=== PATIENT | female | born 1935 | race Caucasian/White ===

== ENCOUNTER 2017-01-30 20:31 | Observation (INO) ==
[2017-01-30] MEDS ORDERED: Ondansetron 4 MG/2 ML VIAL IVP ONE (20:40)
[2017-01-30] MEDS ORDERED: *HR* Morphine 2 MG/ML SYRINGE IVP ONE ×2 (20:40→23:08)
--- NOTE | 2017-01-30 20:43 | Emergency Department Note ---
Disposition Clinical Impression: Fracture of wrist Qualifiers: Encounter type: initial encounter Fracture type: closed Laterality: left Qualified Code(s): S62.102A - Fracture of unspecified carpal bone, left wrist, initial encounter for closed fracture Disposition: Admitted As Inpatient Condition: Fair Referrals: Dayana Ellis MD [Primary Care Provider] - Forms: ED Satisfaction Letter Time of Disposition: 01:34 Upper Extremity HPI - General Chief Complaint: ED Extremity Injury, Upper Stated Complaint: Wrist Injury Time Seen by Provider: 01/30/17 20:40 Source: patient, EMS Limitations: no limitations Nursing Notes Reviewed: Yes Vital Signs Reviewed: Yes - History of Present Illness HPI Narrative: Alert and oriented 81-year-old female is brought by EMS for evaluation of a left wrist injury sustained just prior to arrival. The patient states that she was trying to walk underneath her garage door as it was closing, when she tripped and fell, injuring her left wrist. The patient arrives with a splint in place to the left wrist that was applied by EMS. There is a notable deformity. She complains of pain that she rates a 10 out of 10 on a 10 point scale and describes as sharp in nature the pain is made worsened by range of motion from the wrist as well as palpation. She denies any other injuries incurred from this fall. She denies any head injury or LOC. Injury Location: Left: wrist Onset (ago): Just [employer] Other Injuries: none Place: home Pain Severity: severe Pain Scale: 10 Improves with: nothing Worsens with: movement of extremity, Palpation Context: fall Associated symptoms: Reports: denies other symptoms Treatments prior to arrival: splint (per EMS) - Related Data Home Medications Medication Instructions Recorded Confirmed Aspirin 10/31/15 Calcium 10/31/15 Celexa 10/31/15 HYDROcodone/Acet 5/325 mg 10/31/15 Metronidazole 10/31/15 Nitrolingual 10/31/15 Reclast 5 MG/100 ML 10/31/15 Restasis 10/31/15 Senna 10/31/15 Synthroid 10/31/15 Tylenol 10/31/15 Previous Rx's Medication Instructions Recorded Nitrofurantoin (BID) [Macrobid] 100 mg PO BID #10 capsule 10/12/16 Phenazopyridine HCl [Pyridium] 200 mg PO TID #6 tab 10/12/16 PredniSONE [Prednisone] 40 mg PO DAILY #10 tablet 10/30/16 Allergies Allergy/AdvReac Type Severity Reaction Status Date / Time dicyclomine [From Bentyl] Allergy Hives Verified 08/31/15 13:16 Sulfa (Sulfonamide Allergy Hives Verified 08/31/15 13:16 Antibiotics) All systems ED: reviewed and negative except as stated. Constitutional: Denies: fever, chills, weakness, weight change Eyes: Denies: eye pain, eye discharge, vision change ENT ED: Denies: ear pain, throat pain, dental pain, hearing loss, epistaxis, congestion, dysphagia Cardiovascular: Denies: chest pain, palpitations, dyspnea on exertion, edema, syncope Respiratory: Denies: cough, dyspnea, wheezes, hemoptysis, stridor Gastrointestinal: Denies: abdominal pain, nausea, vomiting, diarrhea, constipation, hematemesis, melena, hematochezia Genitourinary: Denies: dysuria, frequency, hematuria, discharge Musculoskeletal: Reports: as per HPI, arthralgia (left wrist injury). Denies: back pain, neck pain, myalgia Integumentary: Denies: rash, abrasion, lesions Neurological: Denies: headache, weakness, numbness, paresthesias, confusion, abnormal gait, vertigo Psychiatric: Denies: anxiety, depression, suicidal thoughts, homicidal thoughts , auditory hallucinations, visual hallucinations Endocrine: Denies: fatigue Hematological/Lymphatic: Denies: easy bleeding, easy bruising Allergic/Immunologic: Denies: facial swelling, urticaria Past Medical History - Past Medical History Attestation: Yes The following information was validated with the patient. Source: patient Medical history: Reports: myocardial infarction, osteoporosis Surgical history: Reports: other (right ear surgery; sinus surgery per Dr. Peng 2013) Psychiatric history: Reports: no psych history - Social History Smoking Status: Never smoker Smokeless Tobacco Status: No Alcohol use: Reports: none Drug use: Reports: none Physical Exam - General Limitations: no limitations General appearance: alert - Head Head exam: atraumatic, normocephalic, normal inspection - Eye Eye exam: Present: normal appearance, PERRL, EOMI. Absent: nystagmus - ENT ENT exam: mucous membranes moist - Neck Neck exam: Present: normal inspection, full ROM, trachea midline. Absent: tenderness - Chest Chest inspection: Present: normal inspection, symmetric chest wall rise - Respiratory Respiratory exam: Present: normal lung sounds bilaterally. Absent: respiratory distress, wheezes, stridor, accessory muscle use, prolonged expiratory phase - Cardiovascular Cardiovascular exam: Present: regular rate, normal rhythm, normal heart sounds - Abdominal Exam Abdominal exam: Present: soft, Non-Tender, normal bowel sounds. Absent: tenderness, distention, guarding, rebound, rigidity - Expanded Upper Extremity Exam Shoulder exam: Present: normal inspection, full ROM Arm exam: Present: normal inspection, full ROM Elbow exam: Present: normal inspection, full ROM Forearm/Wrist exam: Present: tenderness, deformity (Significant medial angulation noted of the left hand from the left wrist joint.). Absent: full ROM , swelling, abrasion, laceration, ecchymosis, erythema Hand exam: Present: normal inspection Neuromotor exam: Abnorm: wrist extension Neurosensory exam: Normal: radial nerve, ulnar nerve, 2-point discrimination Hand tendon exam: Normal: flexor digitorum profundus (location) (All), extensor tendon (location) (All) Vascular exam: Normal: capillary refill, radial pulse, ulnar pulse - Neurological Exam Neurological exam: Present: alert, oriented X3 - Psychiatric Psychiatric exam: Present: normal affect, normal mood - Skin Skin exam: Present: warm, dry, intact, normal color Course Course Narrative: 2250: I was notified by SHARMAINE Sepulveda, of an elevated blood pressure reading of 208/ 81. At the time that he notified me of this, he also notifies me that the patient's daughter has expressed concern that there may be some left-sided facial droop of new onset. Upon reexamination, I do not appreciate any facial droop or facial palsy. Motor strength is equal in all testable extremities. There is no sensory neglect. There is no drift of her lower extremities. No pronator drift with her right upper extremity. Pronator drift of the left upper extremity is untestable due to her left radius fracture. No appreciable speech deficits. Pupils are equal, round, and reactive. After leaving the room , I asked Dr. Delgado to evaluate the patient as well. Dr. Delgado states that he cannot appreciate any focal neuro deficits either. He states that at this time, he does not feel that a stroke alert is warranted, however he does recommend a thorough workup including a routine CT of the head and brain without contrast and possible admission to the hospitalist for further observation. The patient and her daughter are in agreement with this plan. 2300: I spoke with Dr. Davidson, orthopedist food and nutrition services assistant. Dr. Davidson recommends the application of a sugar tong splint after an attempt to reduce the wrist. Dr. Swan states that if the patient is admitted to the hospitalist service, he will see the patient in the hospital tomorrow. 0130: I spoke with Dr. Vilchis who accepts the patient for admission to the hospitalist service. Vital signs are just been repeated. Blood pressure is now 179/68 and heart rate is 80. Vital Signs Temperature 98.3 F 01/30/17 20:36 Pulse Rate 81 01/30/17 20:36 Respiratory Rate 18 01/30/17 20:36 Blood Pressure 131/86 01/30/17 20:36 O2 Sat by Pulse Oximetry 97 01/30/17 20:36 Temperature 98.3 F 01/30/17 20:36 Pulse Rate 97 01/31/17 01:21 Respiratory Rate 16 01/31/17 01:21 Blood Pressure 179/65 01/31/17 01:21 O2 Sat by Pulse Oximetry 97 01/31/17 01:21 Oxygen Delivery Oxygen Delivery Room Air Extremity Injury, Upper - Medical Records Medical records reviewed: Yes I reviewed the patient's medical records. - Lab Data Lab results reviewed: Yes I reviewed the patient's lab results. Lab results narrative: Laboratory Last Values WBC 10.1 K/mcL (4.3-11.1) 01/31/17 00:14 RBC 3.11 M/mcL (3.82-4.97) L 01/31/17 00:14 Hgb 10.5 g/dL (11.5-15.4) L 01/31/17 00:14 Hct 32.6 % (35.3-44.9) L 01/31/17 00:14 MCV 104.8 fL (83.0-100.0) H 01/31/17 00:14 MCH 33.8 pg (28.0-33.3) H 01/31/17 00:14 MCHC 32.2 g/dL (31.6-35.5) 01/31/17 00:14 RDW 13.2 % (11.5-14.5) 01/31/17 00:14 Plt Count 201 K/mcL (140-400) 01/31/17 00:14 MPV 10.1 fL (9.4-12.4) 01/31/17 00:14 Immature Gran % 0.5 % (0-4) 01/31/17 00:14 Seg Neutrophils % 71.9 % 01/31/17 00:14 Lymphocytes % 21.1 % 01/31/17 00:14 Monocytes % 5.3 % 01/31/17 00:14 Eosinophils % 1.1 % 01/31/17 00:14 Basophils % 0.1 % 01/31/17 00:14 Neutrophils # 7.3 K/mcL (1.6-8.9) 01/31/17 00:14 Lymphocytes # 2.1 K/mcL (0.6-4.6) 01/31/17 00:14 Monocytes # 0.5 K/mcL (0.0-1.3) 01/31/17 00:14 Eosinophils # 0.1 K/mcL (0.0-0.6) 01/31/17 00:14 Basophils # 0.0 K/mcL (0.0-0.2) 01/31/17 00:14 PT 11.1 Seconds (9.4-12.1) 01/31/17 00:14 INR 1.0 01/31/17 00:14 Sodium 142 mEq/L (136-145) 01/31/17 00:14 Potassium 3.9 mEq/L (3.5-4.5) 01/31/17 00:14 Chloride 105 mEq/L (98-109) 01/31/17 00:14 Carbon Dioxide 28 mEq/L (19-29) 01/31/17 00:14 BUN 19 mg/dL (7-20) 01/31/17 00:14 Creatinine 0.80 mg/dL (0.57-1.11) 01/31/17 00:14 Est GFR ( Amer) > 60 (> 60) 01/31/17 00:14 Est GFR (Non-Af Amer) > 60 (> 60) 01/31/17 00:14 BUN/Creatinine Ratio 24 (6-26) 01/31/17 00:14 Glucose 106 mg/dL (70-99) H 01/31/17 00:14 Calculated Osmolality 297 (280-300) 01/31/17 00:14 Calcium 9.3 mg/dL (8.6-10.8) 01/31/17 00:14 Total Bilirubin 0.4 mg/dL (0.2-1.2) 01/31/17 00:14 Direct Bilirubin 0.2 mg/dL (0.0-0.5) 01/31/17 00:14 Indirect Bilirubin 0.2 mg/dL (0.0-1.2) 01/31/17 00:14 AST 22 Units/L (5-34) 01/31/17 00:14 ALT 22 Units/L (0-55) 01/31/17 00:14 Alkaline Phosphatase 48 Units/L (38-126) 01/31/17 00:14 Creatine Kinase 105 Units/L (29-168) 01/31/17 00:14 Troponin I 0.01 ng/mL (0-0.03) 01/31/17 00:14 C-Reactive Protein 1 mg/L (Less than 5) 01/31/17 00:14 Serum Total Protein 6.5 g/dL (6.0-8.3) 01/31/17 00:14 Albumin 3.5 g/dL (3.5-5.0) 01/31/17 00:14 Globulin 3.0 g/dL (2.4-3.5) 01/31/17 00:14 Albumin/Globulin Ratio 1.2 (1.1-2.2) 01/31/17 00:14 Urine Color Yellow (Yellow) 01/30/17 23:04 Urine Clarity Clear (Clear) 01/30/17 23:04 Urine pH 7.5 pH Units (5.0-8.0) 01/30/17 23:04 Ur Specific Kinde 1.014 (1.010-1.025) 01/30/17 23:04 Urine Protein Negative mg/dL (Neg-Trace) 01/30/17 23:04 Urine Glucose (UA) Normal mg/dL (Normal) 01/30/17 23:04 Urine Ketones Negative mg/dL (Negative) 01/30/17 23:04 Urine Blood Negative (Negative) 01/30/17 23:04 Urine Nitrite Negative (Negative) 01/30/17 23:04 Urine Bilirubin Negative (Negative) 01/30/17 23:04 Urine Urobilinogen Normal mg/dL (Normal) 01/30/17 23:04 Ur Leukocyte Esterase Negative (Negative) 01/30/17 23:04 Ur Culture Indicated? NO (NO) 01/30/17 23:04 Result diagrams: 01/31/17 00:14 01/31/17 00:14 Lab Results 01/30/17 01/31/17 01/31/17 Range/Units 23:04 00:14 00:14 WBC 10.1 (4.3-11.1) K/mcL RBC 3.11 L (3.82-4.97) M/mcL Hgb 10.5 L (11.5-15.4) g/dL Hct 32.6 L (35.3-44.9) % MCV 104.8 H (83.0-100.0) fL MCH 33.8 H (28.0-33.3) pg MCHC 32.2 (31.6-35.5) g/dL RDW 13.2 (11.5-14.5) % Plt Count 201 (140-400) K/mcL MPV 10.1 (9.4-12.4) fL Immature Gran % 0.5 (0-4) % Seg Neutrophils % 71.9 % Lymphocytes % 21.1 % Monocytes % 5.3 % Eosinophils % 1.1 % Basophils % 0.1 % Neutrophils # 7.3 (1.6-8.9) K/mcL Lymphocytes # 2.1 (0.6-4.6) K/mcL Monocytes # 0.5 (0.0-1.3) K/mcL Eosinophils # 0.1 (0.0-0.6) K/mcL Basophils # 0.0 (0.0-0.2) K/mcL PT 11.1 (9.4-12.1) Seconds INR 1.0 Sodium (136-145) mEq/L Potassium (3.5-4.5) mEq/L Chloride (98-109) mEq/L Carbon Dioxide (19-29) mEq/L BUN (7-20) mg/dL Creatinine (0.57-1.11) mg/dL Est GFR ( Amer) (> 60) Est GFR (Non-Af Amer) (> 60) BUN/Creatinine Ratio (6-26) Glucose (70-99) mg/dL Calculated Osmolality (280-300) Calcium (8.6-10.8) mg/dL Total Bilirubin (0.2-1.2) mg/dL Direct Bilirubin (0.0-0.5) mg/dL Indirect Bilirubin (0.0-1.2) mg/dL AST (5-34) Units/L ALT (0-55) Units/L Alkaline Phosphatase (38-126) Units/L Creatine Kinase (29-168) Units/L Troponin I (0-0.03) ng/mL C-Reactive Protein (Less than 5) mg/L Serum Total Protein (6.0-8.3) g/dL Albumin (3.5-5.0) g/dL Globulin (2.4-3.5) g/dL Albumin/Globulin Ratio (1.1-2.2) Urine Color Yellow (Yellow) Urine Clarity Clear (Clear) Urine pH 7.5 (5.0-8.0) pH Units Ur Specific Kinde 1.014 (1.010-1.025) Urine Protein Negative (Neg-Trace) mg/dL Urine Glucose (UA) Normal (Normal) mg/dL Urine Ketones Negative (Negative) mg/dL Urine Blood Negative (Negative) Urine Nitrite Negative (Negative) Urine Bilirubin Negative (Negative) Urine Urobilinogen Normal (Normal) mg/dL Ur Leukocyte Esterase Negative (Negative) Ur Culture Indicated? NO (NO) 01/31/17 01/31/17 Range/Units 00:14 00:14 WBC (4.3-11.1) K/mcL RBC (3.82-4.97) M/mcL Hgb (11.5-15.4) g/dL Hct (35.3-44.9) % MCV (83.0-100.0) fL MCH (28.0-33.3) pg MCHC (31.6-35.5) g/dL RDW (11.5-14.5) % Plt Count (140-400) K/mcL MPV (9.4-12.4) fL Immature Gran % (0-4) % Seg Neutrophils % % Lymphocytes % % Monocytes % % Eosinophils % % Basophils % % Neutrophils # (1.6-8.9) K/mcL Lymphocytes # (0.6-4.6) K/mcL Monocytes # (0.0-1.3) K/mcL Eosinophils # (0.0-0.6) K/mcL Basophils # (0.0-0.2) K/mcL PT (9.4-12.1) Seconds INR Sodium 142 (136-145) mEq/L Potassium 3.9 (3.5-4.5) mEq/L Chloride 105 (98-109) mEq/L Carbon Dioxide 28 (19-29) mEq/L BUN 19 (7-20) mg/dL Creatinine 0.80 (0.57-1.11) mg/dL Est GFR ( Amer) > 60 (> 60) Est GFR (Non-Af Amer) > 60 (> 60) BUN/Creatinine Ratio 24 (6-26) Glucose 106 H (70-99) mg/dL Calculated Osmolality 297 (280-300) Calcium 9.3 (8.6-10.8) mg/dL Total Bilirubin 0.4 (0.2-1.2) mg/dL Direct Bilirubin 0.2 (0.0-0.5) mg/dL Indirect Bilirubin 0.2 (0.0-1.2) mg/dL AST 22 (5-34) Units/L ALT 22 (0-55) Units/L Alkaline Phosphatase 48 (38-126) Units/L Creatine Kinase 105 (29-168) Units/L Troponin I 0.01 (0-0.03) ng/mL C-Reactive Protein 1 (Less than 5) mg/L Serum Total Protein 6.5 (6.0-8.3) g/dL Albumin 3.5 (3.5-5.0) g/dL Globulin 3.0 (2.4-3.5) g/dL Albumin/Globulin Ratio 1.2 (1.1-2.2) Urine Color (Yellow) Urine Clarity (Clear) Urine pH (5.0-8.0) pH Units Ur Specific Kinde (1.010-1.025) Urine Protein (Neg-Trace) mg/dL Urine Glucose (UA) (Normal) mg/dL Urine Ketones (Negative) mg/dL Urine Blood (Negative) Urine Nitrite (Negative) Urine Bilirubin (Negative) Urine Urobilinogen (Normal) mg/dL Ur Leukocyte Esterase (Negative) Ur Culture Indicated? (NO) - Radiology Data Radiology results reviewed: Yes I reviewed the patient's radiology results. Wrist X-Ray 01/30/17 20:40 IMPRESSION: Fracture of left distal radius and questionable possible subtle nondisplaced fracture of the ulnar styloid as described above. D/ / 01/30/2017 22:16:43 Tristan Pacheco MD / krista Interpreting Provider: Tristan Pacheco MD Chest X-Ray 01/30/17 22:52 IMPRESSION: No acute cardiopulmonary disease. D/ / Wu Randall MD / Wu Randall MD Interpreting Provider: Wu Randall MD Head CT 01/30/17 22:52 IMPRESSION: No acute intracranial abnormality. Mild generalized cerebral atrophy and periventricular white matter ischemic changes, grossly stable. D/ / Wu Randall MD / Wu Randall MD Interpreting Provider: Wu Randall MD - EKG Data EKG attestation: Yes I reviewed and interpreted this EKG. EKG results narrative: EKG reviewed by Dr. Fregoso as well. EKG shows a normal sinus rhythm at a rate of 61 bpm. No ectopy noted. No STEMI.
--- NOTE | 2017-01-30 23:07 | Emergency Department Note ---
START Narrative - START START: I was asked to evaluate the patient secondary to concerns regarding high blood pressure and possible facial drooping. The patient was coming home from [employer] practice today, she was entering her garage and reportedly slipped and fell. She fell onto an outstretched arm quickly left side. A Colles' type fracture was identified in the ED via radiography. The patient was in her usual state of health prior to the event. The patient denies a syncopal event. A simple fall as described. The patient did not have chest pain shortness of breath or abdominal pain. She has not had vomiting or diarrhea. There is no history of headache or head pain or injury. No history of neck pain or back pain or lower extremity pain or right upper extremity pain. Pain and deformity reported left upper extremity near the wrist area. There is been no coldness blueness numbness or weakness left upper extremity. No open lesions or bleeding. The patient is not known to be anticoagulated. During her stay in the ED the patient was given pain medications, the patient's power of senior trial attorney/female relative was in the ED and was concerned because the patient's blood pressure went up. She also thought perhaps the patient had some left facial droop. The patient reports that her mouth just feels dry. There is no history of acute weakness or numbness of the arms or legs, no dysarthria or confusion. No headache. The patient is not known to be diabetic. Physical examination: General elderly female lying supine nontoxic in appearance alert oriented and she answers questions properly no speech abnormality is noted. HEENT normocephalic atraumatic neck is supple or mucosa somewhat dry. The patient is somewhat smacking her lips and has thick sputum, actively complaining that her mouth feels dry. Neck is supple there is no facial palpation of cervical spinous processes. Cardiovascular S1-S2 audible. No JVD or externally cyanosis or edema is noted. Lungs clear to auscultation bilaterally without wheezes rales or crackles. Abdomen soft nontender nondistended rebound rigidity or guarding. No evidence of bruising or trauma. Lower extremities are supple warm and well-perfused show good range of motion without evidence of injury. Right upper extremity is supple and shows a good range of motion without evidence of injury. Left upper extremity reveals swelling about the wrist. Radial pulse palpable, no open lesion. The patient's hand is painless to palpation and is warm and well-perfused. The elbow and shoulder show no evidence of lety defect. All 4 extremities show no evidence of neurovascular or neuromuscular compromise. Exposed skin warm and dry without petechia or purpura. Inspection of the back reveals no trauma no pain to palpation at the rectal lumbar column no pain to percussion or costovertebral angles bilaterally. There is no evidence of lety chest injury. Neurologic muscle strength and sensation are intact in all 4 extremities. Cranial nerves II through XII are grossly intact. The patient has good sensation and strength throughout without evidence of focal defect. The patient is able to smile and displays no facial droop. Extraocular muscles are intact pupils are reactive although somewhat constricted after morphine. Finger to nose testing on the right is unremarkable, left not tested secondary to pain. The patient is able to sit up and displays no truncal instability. ED course: As a precaution,'s further evaluation for general weakness was ordered. CT scan had EKG laboratory testing and urinalysis. The patient's blood pressure was significantly elevated, additional pain control measures were initiated. Medical decision making: The patient appears to be stable, she displays no lety neurologic defects, testing is pending. If the patient does not deteriorate clinically and all of her testing is normative, and her blood pressure normalizes, I think it would be reasonable to splint the patient, discharge her home, and have her follow-up with her primary care physician in 2 days as well as orthopedics in 1-2 days. I do not think the patient necessarily requires reduction of the distal radius fracture in the ED. Orthopedics could be consulted to ensure close follow-up and agreement regarding non-reduction. If there are any significant abnormalities, or the patient's clinical condition deteriorates, or if her pain is uncontrolled and she is unable to ambulate well for her blood pressure remained significantly elevated, I think hospital observation would be reasonable. The patient is currently stable, I do not feel a stroke alert is appropriate based on her non-focal neurological examination. Disposition pending radiographic laboratory and EKG studies as well as monitoring clinical status. Impression: Frail elderly Distal radius fracture Fall Weakness Elevated blood pressure It is shift change, final disposition as per [facility] in consultation with the ED attending provider Dr. Fregoso if deemed necessary.
[2017-01-30 23:22] LABS: Bilirubin,Urine Negative (Negative); Blood,Urine Negative (Negative); Clarity,Urine Clear (Clear); Color,Urine Yellow (Yellow); Glucose,Urine (UA) Normal (Normal); Ketones,Urine Negative (Negative); Leukocyte Esterase,Urine Negative (Negative); Nitrite,Urine Negative (Negative); PH,Urine 7.5 pH Units (5.0-8.0); Protein,Urine Negative (Neg-Trace); Specific Gravity,Urine 1.014 (1.010-1.025); Urobilinogen,Urine Normal (Normal)
[2017-01-31] MEDS ORDERED: *HR* HYDROmorphone 2 MG/ML SYRINGE IVP ONE (00:07)
[2017-01-31] MEDS ORDERED: Ondansetron 4 MG/2 ML VIAL IVP ONE (00:09)
[2017-01-31 00:22] LABS: Basophils % 0.1 %; Eosinophils # 0.1 K/mcL (0.0-0.6); Eosinophils % 1.1 %; Hematocrit 32.6 % (35.3-44.9); Hemoglobin 10.5 g/dL (11.5-15.4); Immature Granulocytes % 0.5 % (0-4); Lymphocytes # 2.1 K/mcL (0.6-4.6); Lymphocytes % 21.1 %; Mean Corpuscular HGB Conc 32.2 g/dL (31.6-35.5); Mean Corpuscular Hemoglobin 33.8 pg (28.0-33.3); Mean Corpuscular Volume 104.8 fL (83.0-100.0); Mean Platelet Volume 10.1 fL (9.4-12.4); Monocytes # 0.5 K/mcL (0.0-1.3); Monocytes % 5.3 %; Neutrophils # 7.3 K/mcL (1.6-8.9); Platelet Count 201 K/mcL (140-400); Red Blood Count 3.11 M/mcL (3.82-4.97); Red Cell Distribution Width 13.2 % (11.5-14.5); Segmented Neutrophils % 71.9 %
[2017-01-31 00:29] LABS: Prothrombin Time 11.1 Seconds (9.4-12.1)
[2017-01-31 00:39] LABS: Alanine Aminotransferase 22 Units/L (0-55); Albumin 3.5 g/dL (3.5-5.0); Albumin/Globulin Ratio 1.2 (1.1-2.2); Alkaline Phosphatase 48 Units/L (38-126); Aspartate Amino Transferase 22 Units/L (5-34); BUN/Creatinine Ratio 24 (6-26); Bilirubin,Direct 0.2 mg/dL (0.0-0.5); Bilirubin,Indirect 0.2 mg/dL (0.0-1.2); Bilirubin,Total 0.4 mg/dL (0.2-1.2); Blood Urea Nitrogen 19 mg/dL (7-20); C-Reactive Protein 1 mg/L (Less than 5); Calcium 9.3 mg/dL (8.6-10.8); Carbon Dioxide 28 mEq/L (19-29); Chloride 105 mEq/L (98-109); Creatine Kinase 105 Units/L (29-168); Glucose 106 mg/dL (70-99); Osmolality,Calculated 297 (280-300); Potassium 3.9 mEq/L (3.5-4.5); Sodium 142 mEq/L (136-145); Total Protein 6.5 g/dL (6.0-8.3); eGFR For African Americans > 60 (> 60); eGFR For Non-African Americans > 60 (> 60)
[2017-01-31] MEDS ORDERED: amLODIPine 5 MG TABLET PO SCH (06:09)
--- NOTE | 2017-01-31 06:10 | Internal Med History&Physical ---
Date of Encounter: 01/31/17 Time of Encounter: 02:00 Assessment and Plan (1) Accelerated hypertension Current visit: Yes Status: Acute Pt denies prior h/o HTN. Will start amlodipine - monitor and uptitrate medications as needed. (2) Left radial fracture Current visit: Yes Status: Acute Has a cast - may need operative reduction. Orthopedic consultation, pain relief. PT/OT consult Qualifiers: Encounter type: initial encounter Radius location: distal Fracture type: closed Fracture morphology: unspecified fracture morphology Qualified Code(s ): S52.502A - Unspecified fracture of the lower end of left radius, initial encounter for closed fracture (3) Hypothyroidism Current visit: Yes Status: Chronic Continue synthroid Qualifiers: Hypothyroidism type: unspecified Qualified Code(s): E03.9 - Hypothyroidism , unspecified (4) Coronary artery disease Current visit: Yes Status: Chronic Continue aspirin and statin. Qualifiers: Coronary Disease-Associated Artery/Lesion type: [place] artery [place] vs. transplanted heart: [place] heart Associated angina: without angina Qualified Code(s): I25.10 - Atherosclerotic heart disease of [place] coronary artery without angina pectoris (5) DVT prophylaxis Current visit: Yes Status: Acute subcutaneous heparin Internal Medicine - H&P: HPI Chief complaint: Elevated blood pressure Admitted From: Emergency Dept Plans for Post Hospital Care: Home History of present illness: Ms. Mack is a 81 year old female With past medical h/o CAD s/p stent placement and osteoporosis. She was apparently trying to walk underneath her garage door as it was closing, apparently lost balance and fell, injuring her left wrist. No LOC. She reports severe, sharp, non radiating pain at the left wrist. She was evaluated in the emergency department and x-rays showed fracture of the left distal radius. She had reduction and cast was placed. Patient was in the emergency department, her blood pressure was noted to be 208/81, which improved and was suspected to be due to pain. Her daughter apparently expressed concern about possible left-sided facial droop of new onset. She was evaluated by the ER physician and there was no objective evidence of facial weakness and CT head was negative for acute lesion. ER provider discussed with orthopedic surgeon Dr. Davidson, who recommended admission to the hospitalist service. She reports pain at the left wrist, which moderate in severity, nonradiating, worse with movement. She denies chest pain, shortness of breath, cough, hypertension, fever, chills, nausea, vomiting, abdominal pain, dysuria, hematuria, bowel problems. Past Med Surg Social Fam HX - Past Medical History Medical history: arthritis, myocardial infarction, osteoporosis Psychiatric history: no psych history - Past Surgical History Surgical History: other - Social History Smoking Status: Never smoker Smokeless Tobacco Status: No Alcohol use: none Drug use: none - Family History Father Adopted: [place]: Suleiman Physicist Nuclear Age: 65 Family Member Ethnicity: Non- Living Status: Age at : 65 Cause of : [place] Hx Family Cardiac Disorders: Yes Hx Family Respiratory Disorders: No Hx Family Cancer: No Hx Family GI Disorders: No Hx Family Genitourinary Disorders: No Hx Family Endocrine Disorder: No Hx Family Musculoskeletal Disorders: No Hx Family Neuromuscular Disorders: No Hx Family Neurologic Disorders: No Hx Family HEENT Disorders: No Hx Family Autoimmune Disorders: No Hx Family Reproductive Disorders: No Hx Family Psychosocial Disorders: No Hx Family Medical Disorders: No Internal Medicine - H&P: Meds Acetaminophen [Tylenol Arthritis] 650 mg PO Q8H PRN 10/31/15 [History] Aspirin 81 mg PO DAILY 10/31/15 [History] Calcium Carbonate [Calcium] 1,200 mg PO DAILY 10/31/15 [History] Citalopram Hydrobromide [Celexa] 10 mg PO DAILY 10/31/15 [History] Cyclosporine [Restasis] 1 drop OP BID 10/31/15 [History] Levothyroxine [Synthroid] 50 mcg PO DAILY 10/31/15 [History] Nitroglycerin [Nitrostat] 0.4 mg SL AD PRN 10/31/15 [History] Sennosides [Senna] 8.6 mg PO TID PRN 10/31/15 [History] Zoledronic Acid (Reclast) [Reclast 5 MG/100 ML] 5 mg IV [id number] 10/31/15 [ History] Atorvastatin [Lipitor] 40 mg PO HS 01/31/17 [History] Omeprazole 20 mg PO BID 01/31/17 [History] Tramadol HCl [Ultram] 50 mg PO TID PRN 01/31/17 [History] Allergies dicyclomine [From Bentyl] Allergy (Verified 08/31/15 13:16) Hives Sulfa (Sulfonamide Antibiotics) Allergy (Verified 08/31/15 13:16) Hives All Systems PM: A 10-system review of systems was performed and is negative for pertinent findings except as documented above in the HPI. - Constitutional Vitals: Temp Pulse Resp BP Pulse Ox 98.5 F 118 16 197/62 95 01/31/17 02:19 01/31/17 02:19 01/31/17 02:19 01/31/17 02:19 01/31/17 02:19 Exam: General: Not in acute distress at the time of my evaluation HEENT: Oral mucosa is dry. No dentures at the time of my evaluation. No conjunctival palor or scleral icterus Neck: No obvious neck swellings Lungs: Clear to auscultation Cardiac: Regular rate and rhythm. No significant murmurs Abdomen: Soft, non tender. Bowel sounds present Genitourinary: No rich catheter Neurological: Alert and oriented. No gross localizing deficits Psych: Not aggressive or agitated Extremities: no significant leg edema. There is cast to the left forearm. Skin: No generalized rash Internal Med - H&P Results - Labs CBC & Chem 7: 01/31/17 00:14 01/31/17 00:14 - EKG Data -: EKG Interpreted by Myself EKG shows normal: sinus rhythm - EKG Data EKG comments: No acute ischemic changes 01/31/17 09:28 - Impressions ITS Impressions Wrist X-Ray 01/30/17 20:40 IMPRESSION: Fracture of left distal radius and questionable possible subtle nondisplaced fracture of the ulnar styloid as described above. D/ / 01/30/2017 22:16:43 Tristan Pacheco MD / krista Interpreting Provider: Tristan Pacheco MD Chest X-Ray 01/30/17 22:52 IMPRESSION: No acute cardiopulmonary disease. D/ / Wu Randall MD / Wu Randall MD Interpreting Provider: Wu Randall MD Head CT 01/30/17 22:52 IMPRESSION: No acute intracranial abnormality. Mild generalized cerebral atrophy and periventricular white matter ischemic changes, grossly stable. D/ / 01/31/2017 06:35:09 Wu Randall MD / nohelia Interpreting Provider: Wu Randall MD
[2017-01-31] MEDS ORDERED: Naloxone 0.4 MG/ML INJ IVP PRN (06:20)
[2017-01-31] MEDS ORDERED: Acetaminophen 325 MG TABLET PO PRN (06:20)
--- NOTE | 2017-01-31 06:45 | Electrocardiograph Report ---
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
[2017-01-31] MEDS: *HR* Morphine 2 MG/ML SYRINGE IVP PRN ×3 (07:01→17:15)
[2017-01-31] MEDS ORDERED: Nitroglycerin 0.4 MG TAB.SUBL SL PRN (09:29)
[2017-01-31] MEDS ORDERED: Sennosides 8.6 MG TABLET PO PRN (09:29)
--- NOTE | 2017-01-31 09:35 | Orthopedic Consult Note ---
Date of Encounter: 01/31/17 Time of Encounter: 09:30 Assessment and Plan (1) Fracture of wrist Current Visit: Yes Status: Acute Xrays show left distal radius and ulnar styloid fractures. The distal radius fracture will require surgical fixation. Plan for left DR ORIF tomorrow morning. The ulnar styloid is nondisplaced and should not require surgical fixation. Leave splint and dressings in place. Elevate extremity. Pain control per hospitalist. NPO after midnight tonight. Qualifiers: Encounter type: initial encounter Fracture type: closed Laterality: left Qualified Code(s): S62.102A - Fracture of unspecified carpal bone, left wrist , initial encounter for closed fracture History of Present Illness Chief complaint: left wrist pain HPI: Ms. Mack is a 81 year old female who presented to the ER last night after tripping and falling on outstretched hand. Was trying to go into garage last night then tripped. She had instant pain in the wrist and states it radiates up the arm to the shoulder. Denies numbness or tingling to LUE. Pain is constant, currently rated 8/10 even with pain medication, worse with motion or palpation. Per report, family was concerned about possible facial droop but ER did not note any signs of stroke upon arrival and CT of head was negative for any acute abnormalities. Patient feeling well now with no noted deficits. Denies hitting head or LOC. Denies chest pain, SOB, fevers. Past Med Surg Social Fam HX - Past Medical History Medical history: arthritis, myocardial infarction, osteoporosis Psychiatric history: no psych history - Past Surgical History Surgical History: other - Social History Smoking Status: Never smoker Smokeless Tobacco Status: No Alcohol use: none Drug use: none - Family History Father Adopted: [place]: Suleiman Resolution Analyst Age: 65 Family Member Ethnicity: Non- Living Status: Age at : 65 Cause of : [place] Hx Family Cardiac Disorders: Yes Hx Family Respiratory Disorders: No Hx Family Cancer: No Hx Family GI Disorders: No Hx Family Genitourinary Disorders: No Hx Family Endocrine Disorder: No Hx Family Musculoskeletal Disorders: No Hx Family Neuromuscular Disorders: No Hx Family Neurologic Disorders: No Hx Family HEENT Disorders: No Hx Family Autoimmune Disorders: No Hx Family Reproductive Disorders: No Hx Family Psychosocial Disorders: No Hx Family Medical Disorders: No Medications and Allergies Acetaminophen [Tylenol Arthritis] 650 mg PO Q8H PRN 10/31/15 [History] Aspirin 81 mg PO DAILY 10/31/15 [History] Calcium Carbonate [Calcium] 1,200 mg PO DAILY 10/31/15 [History] Citalopram Hydrobromide [Celexa] 10 mg PO DAILY 10/31/15 [History] Cyclosporine [Restasis] 1 drop OP BID 10/31/15 [History] Levothyroxine [Synthroid] 50 mcg PO DAILY 10/31/15 [History] Nitroglycerin [Nitrostat] 0.4 mg SL AD PRN 10/31/15 [History] Sennosides [Senna] 8.6 mg PO TID PRN 10/31/15 [History] Zoledronic Acid (Reclast) [Reclast 5 MG/100 ML] 5 mg IV [id number] 10/31/15 [ History] Atorvastatin [Lipitor] 40 mg PO HS 01/31/17 [History] Omeprazole 20 mg PO BID 01/31/17 [History] Tramadol HCl [Ultram] 50 mg PO TID PRN 01/31/17 [History] Allergies dicyclomine [From Bentyl] Allergy (Verified 08/31/15 13:16) Hives Sulfa (Sulfonamide Antibiotics) Allergy (Verified 08/31/15 13:16) Hives All Systems Reviewed: A 10-system review of systems was performed and is negative for pertinent findings except as documented above in the HPI. - Constitutional Constitutional: as per HPI - Cardiovascular Cardiovascular: as per HPI - Respiratory Respiratory: as per HPI - Musculoskeletal Musculoskeletal: as per HPI Physical Exam - Constitutional Vitals: Temp Pulse Resp BP Pulse Ox 97.7 F 69 18 133/70 96 01/31/17 07:09 01/31/17 07:09 01/31/17 07:09 01/31/17 07:09 01/31/17 07:09 - Wrist & Hand left Location of pain: dorsal wrist, volar wrist (Patient has sugar tong splint intact and this was not removed for exam. Good motion of fingers, brisk cap refill. NV intact. Tenderness to palpation of wrist even over the splint. No tenderness to palpation of the elbow or shoulder. ) Results - Labs Result Diagrams: 01/31/17 00:14 01/31/17 00:14 Labs: Abnormal lab results RBC 3.11 M/mcL (3.82-4.97) L 01/31/17 00:14 Hgb 10.5 g/dL (11.5-15.4) L 01/31/17 00:14 Hct 32.6 % (35.3-44.9) L 01/31/17 00:14 MCV 104.8 fL (83.0-100.0) H 01/31/17 00:14 MCH 33.8 pg (28.0-33.3) H 01/31/17 00:14 Glucose 106 mg/dL (70-99) H 01/31/17 00:14 All other labs normal. - Diagnostic results Wrist/Hand x-ray: report reviewed, image reviewed Consult Discharge Plan - Plan Referrals: Dayana Ellis MD [Primary Care Provider] - - Attending Attestation Case and plan of care discussed with attending physician who was available for all aspects of care.
--- NOTE | 2017-01-31 09:57 | Internal Med Progress Note ---
Date of Encounter: 01/31/17 Time of Encounter: 09:55 - Assessment and plan (1) Colles' fracture of left radius Current Visit: Yes Status: Acute Assessment and plan: The patient presented with a left Colles' fracture secondary to traumatic fall at home while trying to enter her garage and beat the garage door. - X-ray of the left wrist reviewed. - Neurovascularly intact - Moderate risk patient for a low risk procedure. Plan: - We will image left proximal radius - Orthopedic surgery plans to operate tomorrow morning. - NPO after midnight. Qualifiers: Qualified Code(s): S52.532A - Colles' fracture of left radius, initial encounter for closed fracture (2) Accelerated hypertension Current Visit: Yes Status: Acute Assessment and plan: Patient is not on blood pressure medications at home. Elevated blood pressures of SBP around 199 recorded now normotensive. - Patient has severe diffuse vascular stenosis and her BP may be a result of poor vascular response. Hx of hypotension with BP medications and no home BP medications. Plan: - Continue to monitor blood pressure - Hydralazine 5 mg IV every 6 hours when necessary for SBP greater than 160 - Discontinue Amlodipine. (3) Hypothyroidism Current Visit: Yes Status: Chronic Assessment and plan: Continue home medications. Qualifiers: Hypothyroidism type: unspecified Qualified Code(s): E03.9 - Hypothyroidism , unspecified (4) Coronary artery disease Current Visit: Yes Status: Chronic Assessment and plan: Significant coronary artery disease history, history of mesenteric ischemia, carotid stenosis. - Carotid duplex demonstrates right prox. ICA has 40-59% stenosis, Left mid ICA has 80-99% stenosis. Medical management was preferred per notes. -Continue home medications. Qualifiers: Coronary Disease-Associated Artery/Lesion type: [place] artery [place] vs. transplanted heart: [place] heart Associated angina: without angina Qualified Code(s): I25.10 - Atherosclerotic heart disease of [place] coronary artery without angina pectoris (5) DVT prophylaxis Current Visit: Yes Status: Acute Assessment and plan: SC Heparin Q12hrs - Subjective Interval history: Ms. Mack has been seen and evaluated this morning at patient bedside. She continues to have pain exacerbated with movement in her left forearm that she broke yesterday. It is bandaged and she keeps it close to her body. She has an appetite and denies vomiting. She denies pain anywhere else today. She understands that her forearm will likely need surgical intervention. She has no further questions. - Constitutional Vitals: Temp Pulse Resp BP Pulse Ox 97.7 F 69 18 133/70 96 01/31/17 07:09 01/31/17 07:09 01/31/17 07:09 01/31/17 07:09 01/31/17 07:09 General appearance: Present: cooperative, A&O X 3, no acute distress - Head Head exam: Present: atraumatic, normocephalic - Eye Eye exam: Present: PERRL, conjuntiva pink, sclera anicteric Pupils: Present: PERRL - ENT ENT exam: Present: mucous membranes moist - Neck Neck exam general surgery: Present: supple, trachea midline. Absent: lymphadenopathy - Respiratory Respiratory exam: Present: CTAB. Absent: accessory muscle use, rales, rhonchi, wheezes - Cardiovascular Cardiovascular exam: Present: RRR, systolic murmur Additional comments: Grade 2-6 systolic ejection murmur. Bilateral carotid bruits noted. - GI/Abdominal GI/Abdominal exam: Present: normal bowel sounds, soft, no peritoneal signs. Absent: distended, tenderness - Extremities Exam Extremities exam: Present: warm. Absent: calf tenderness, cyanotic, pedal edema Additional comments: left arm bandaged past elbow. fingers of left hand a swollen but have appropriate capillary refill and sensation and motor function are intact. All other extremities are moving spontaneously. - Neurological Exam Neurological exam: Present: alert, oriented X3, no focal deficits. Absent: pronater drift, facial droop, speech deficit Internal Medicine: Result - Labs CBC & Chem 7: 01/31/17 00:14 01/31/17 00:14 - ABG Interpretation ABG results: PT/INR, D-dimer PT 11.1 Seconds (9.4-12.1) 01/31/17 00:14 Consult Discharge Plan - Plan Referrals: Dayana Ellis MD [Primary Care Provider] -
[2017-01-31] MEDS: (Cyclosporine [Restasis] 1 DROP) OP SCH ×2 (12:03→20:38)
[2017-01-31] MEDS: Aspirin 81 MG TAB.CHEW PO SCH (12:07)
[2017-01-31] MEDS: *HR* Heparin 5,000 UNIT/ML VIAL SQ SCH ×2 (12:07→17:15)
[2017-01-31] MEDS: *HR* OxyCODONE Immed Rel 5 MG TABLET PO PRN ×2 (15:26→23:46)
--- NOTE | 2017-01-31 22:52 | Anesthesia Evaluation PreOp ---
Date of Encounter: 02/01/17 Time of Encounter: 00:00 - Past History Planned Operation: L distal radius ORIF Cardiac History: [place] (STEMI 2011), HTN (Very elevated BP on admission (with systolic over 200) and initial concern for CVA and facial droop with negative CT brain), Hyperlipidemia, Cardiac Stent (stent to RCA 2011), Other (CAD) Pulmonary History: Denies Any Significant HX ROPE TIER History: CVA (?? concern for facial droop on admission to ED after fall; negative CT brain but no MRI performed and symptoms abated), Other (Concern for possible facial droop upon admission to ED; no evidence per ED providers and negative CT brain; however, patient does have critical L mid ICA stenosis and mod R prox ICA stenosis) Other Medical History: Thyroid (hypothyroidism), GERD, Other (osteoporosis) Alcohol Use: none Drug use: none Medications and Allergies Acetaminophen [Tylenol Arthritis] 650 mg PO Q8H PRN 10/31/15 [History] Aspirin 81 mg PO DAILY 10/31/15 [History] Calcium Carbonate [Calcium] 1,200 mg PO DAILY 10/31/15 [History] Citalopram Hydrobromide [Celexa] 10 mg PO DAILY 10/31/15 [History] Cyclosporine [Restasis] 1 drop OP BID 10/31/15 [History] Levothyroxine [Synthroid] 50 mcg PO DAILY 10/31/15 [History] Nitroglycerin [Nitrostat] 0.4 mg SL AD PRN 10/31/15 [History] Sennosides [Senna] 8.6 mg PO TID PRN 10/31/15 [History] Zoledronic Acid (Reclast) [Reclast 5 MG/100 ML] 5 mg IV [id number] 10/31/15 [ History] Atorvastatin [Lipitor] 40 mg PO HS 01/31/17 [History] Omeprazole 20 mg PO BID 01/31/17 [History] Tramadol HCl [Ultram] 50 mg PO TID PRN 01/31/17 [History] Oxycodone HCl/Acetaminophen [Percocet 5-325 mg Tablet] 1 each PO Q4-6H PRN #40 tablet 02/01/17 [Rx] Allergies dicyclomine [From Bentyl] Allergy (Verified 08/31/15 13:16) Hives Sulfa (Sulfonamide Antibiotics) Allergy (Verified 08/31/15 13:16) Hives - Meds/Allergy Pre-op Review Medications Reviewed: Yes Allergies Reviewed: Yes Beta Blockers on Current Med List: No Anesthesia Results - Labs 01/31/17 00:14 01/31/17 00:14 - Imaging EKG: report reviewed, image reviewed (SR) Chest x-ray: report reviewed, image reviewed (no acute cardiopulmonary disease) Additional studies: carotid duplex: R prox ICA mod stenosis L mid ICA critical stenosis Anesthesia Exam Last Vital Signs Temp 98.4 F 01/31/17 20:41 Pulse 89 01/31/17 20:41 Resp 16 01/31/17 20:41 BP 128/68 01/31/17 20:41 Pulse Ox 92 01/31/17 20:41 Weight: 57 kg Anesthesia Assess/Plan ASA Score: 3 Anesthetic Plan: General, Regional, MAC Monitoring Plan: Standard Monitors Recovery Plan: PACU
[2017-02-01] MEDS: *HR* Heparin 5,000 UNIT/ML VIAL SQ SCH ×2 (03:57→17:29)
[2017-02-01] MEDS: (Cyclosporine [Restasis] 1 DROP) OP SCH (07:52)
[2017-02-01] MEDS: Aspirin 81 MG TAB.CHEW PO SCH (07:52)
[2017-02-01] MEDS ORDERED: *HR* FentaNYL (PF) 100 MCG/2 ML VIAL ONE ×2 (09:53→10:29)
[2017-02-01] MEDS ORDERED: *HR* Propofol 200 MG/20 ML VIAL IVP ONE ×2 (09:53→10:29)
[2017-02-01] MEDS ORDERED: Lidocaine -MPF 2% 2 ML VIAL ONE (10:29)
[2017-02-01] MEDS ORDERED: *HR* Midazolam HCl 2 MG/2 ML VIAL ONE (10:29)
[2017-02-01] MEDS ORDERED: Famotidine 20 MG/2 ML VIAL ONE (10:46)
[2017-02-01] MEDS ORDERED: Tetracaine/PF 20 MG/2 ML AMPUL SPINA ONE (10:46)
[2017-02-01] MEDS ORDERED: ROPIVACAINE HCL/PF 0.5% 30 ML VIAL ONE (10:46)
[2017-02-01] MEDS ORDERED: Lidocaine -MPF 4% 5 ML AMPUL ONE (10:46)
[2017-02-01] MEDS ORDERED: Bupivacaine/Clonidine Syringe 1 EACH SYRINGE ONE (10:47)
[2017-02-01] MEDS ORDERED: Propofol 500 MG/50 ML INFUS..BTL ONE (11:03)
--- NOTE | 2017-02-01 11:08 | Discharge Summary ---
Outpatient Proc Discharge Plan - Plan Additional Instructions: Do not remove splint Elevate hand. Move fingers and thumb, making sure to make a full fist Use ice for 1 to 2 hour 3 times a day for the next 2 days. No lifting with the operative hand No sports or gym activities follow-up in 1 week with Geena Lawrence PA-C Prescriptions: Oxycodone HCl/Acetaminophen [Percocet 5-325 mg Tablet] 1 each PO Q4-6H PRN #40 tablet PRN Reason: Pain Home Medications: Acetaminophen [Tylenol Arthritis] 650 mg PO Q8H PRN 10/31/15 [History] Aspirin 81 mg PO DAILY 10/31/15 [History] Calcium Carbonate [Calcium] 1,200 mg PO DAILY 10/31/15 [History] Citalopram Hydrobromide [Celexa] 10 mg PO DAILY 10/31/15 [History] Cyclosporine [Restasis] 1 drop OP BID 10/31/15 [History] Levothyroxine [Synthroid] 50 mcg PO DAILY 10/31/15 [History] Nitroglycerin [Nitrostat] 0.4 mg SL AD PRN 10/31/15 [History] Sennosides [Senna] 8.6 mg PO TID PRN 10/31/15 [History] Zoledronic Acid (Reclast) [Reclast 5 MG/100 ML] 5 mg IV [id number] 10/31/15 [ History] Atorvastatin [Lipitor] 40 mg PO HS 01/31/17 [History] Omeprazole 20 mg PO BID 01/31/17 [History] Tramadol HCl [Ultram] 50 mg PO TID PRN 01/31/17 [History] Oxycodone HCl/Acetaminophen [Percocet 5-325 mg Tablet] 1 each PO Q4-6H PRN #40 tablet 02/01/17 [Rx]
[2017-02-01] MEDS ORDERED: Ondansetron 4 MG/2 ML VIAL ONE (11:26)
[2017-02-01 11:32] LABS: Thyroid Stimulating Hormone 11.127 mcIU/mL (0.350-4.840)
[2017-02-01] MEDS ORDERED: Naloxone 0.4 MG/ML INJ IVP PRN ×2 (11:33→13:15)
[2017-02-01] MEDS ORDERED: *HR* HYDROmorphone (PF) 1 MG/ML SYRINGE IVP PRN (11:33)
[2017-02-01] MEDS ORDERED: *HR* Meperidine 25 MG/ML SYRINGE IVP PRN (11:33)
[2017-02-01] MEDS ORDERED: *HR* Labetalol 100 MG/20 ML MDV IVP PRN (11:33)
[2017-02-01] MEDS ORDERED: Ondansetron 4 MG/2 ML VIAL IVP ONE (11:33)
[2017-02-01] MEDS ORDERED: Albuterol 2.5 MG/3 ML NEBULIZER IH ONE (11:33)
--- NOTE | 2017-02-01 11:38 | Anesthesia Procedures ---
Date of Encounter: 02/01/17 Time of Encounter: 11:35 Procedures: Anesthesia - Nerve Block Procedure Date: 02/01/17 Time: 11:35 Surgical Procedure: left distal radius orif Checklist: Correct Patient Identifier, Correct procedure, History checked Correct side: Left Blood Thinner: No Monitor Applied: EKG, BP, Pulse Oximetry Supplemental Oxygen via Nasal Cannula (L/min): 2 Sedation: Versed (mg): 1 Sedation: Fentanyl (mcg): 50 Indication: Primary Anesthesia (request per dr. england) Pre-op Neuro Deficits: No Block Type: Supraclavicular (icb) Catheter placed: No Sterile Technique: Yes Ultrasound used: Yes Anatomy identified: Yes Visual spread of Local: Yes Neuro Stimulation: No Blood on Needle Aspiration: No Smooth Injection of Local: Yes Pain with Injection of Local: No Prep: Chlorhexadine Needle: 22 x 50 mm Stimuplex Local: 0.25% Bupivicaine w/Clonidine 20 mcg/cc (for icb), Ropivacaine (0.5%) Volume (cc): 30 Number of Attempts: 1 Complications: None/effective block Vitals: Vital Signs/O2 Sat/Glucose, Most Current Pulse Resp BP Pulse Ox 02/01/17 10:45 77 16 175/94 99 Comments: pt tolerated procedure well. no complications. vss
[2017-02-01] MEDS ORDERED: Nitroglycerin 0.4 MG TAB.SUBL SL PRN (13:15)
--- NOTE | 2017-02-01 13:16 | Anesthesia Evaluation Post Op ---
Date of Encounter: 02/01/17 Time of Encounter: 13:15 - Vital Signs Vital Signs: Vital Signs/O2 Sat/Glucose, Most Current Pulse Resp BP Pulse Ox 02/01/17 10:45 77 16 175/94 99 - Lungs Lungs: Clear Ascult./Percussion - Airway Airway: Non-obstructed - Cardiovascular Regular Rate, Baseline Rhythm - Mental Status Mental Status: Alert & Oriented, Answers Appropriately - Pain Pain Scale: 3 Pain Scale used: Numeric (1 - 10) - Nausea Vomiting Nausea Vomiting: Not Present - Hydration Hydration: NPO, Has not voided - Discharge PostOp Status: Transfer Patient to floor
--- NOTE | 2017-02-01 13:34 | Operative Note ---
Date of procedure: 02/01/17 Pre-op diagnosis: left distal radius intra-articular fracture with ulnar styloid fractu Post-op diagnosis: other (left wrist displdisplaced distal radius intrntra- articular fracture 3+ distal fragments, inimally displaced ulnar styloid b) Procedure: left wrist open reduction internal fixation of distal radius Implants: [employer] Geminus Anesthesia: MAC, regional Surgeon: Javier Davidson Estimated blood loss (cc): 3 Tourniquet Time (Minutes): 55 Specimen: 0 Condition: stable Disposition: PACU Procedure in Detail: The patient received IV antibiotics in the holding area and also underwent an axillary block by the anesthesia department. The patient was brought into the operating room and placed on the OR table in supine position with the affected upper extremity in a hand table. The patient received MAC. A tourniquet was placed on the arm close axilla and the upper extremity was then prepped and draped in usual sterile fashion. A timeout was performed. The extremity was then elevated, exsanguinated with an Ramiro wrap and the tourniquet was raised to a pressure of 250 mmHg. A 6 cm longitudinal incision was made over the volar radial aspect of the wrist , directly over the FCR tendon ending at the distal wrist flexion crease. The FCR sheath was split down the midline, the tendon was retracted over medially and the base of the sheath was also split the midline. The deep fascia and the FPL muscle/tendon was also retraction medially exposing the pronator quadratus. This was then elevated off in an L-shaped manner subperiosteally, exposing the fracture site. The distal fracture fragments were mobilized as a unit, and reduced with the use of a freer elevator, and provisionally pinned in place using a 0.062 K wire driven down from the tip of the radial styloid into the proximal shaft. No significant intra-articular comminution by the radial styloid x-ray showed a articular surface remained nondisplaced. Is a healing fracture but the ligament facet but this also remained nondisplaced. A lamina supervisor front was also used to restore the alignment of the radial shaft. Next a 4 hole left sided standard plate was applied to the volar surface and secured with a bone screw through the slotted hole. Once we had appropriate position plate, it was further secured with a locking screw in hole #4 in the metaphyseal bone. The distal fragment was held against the plate restoring volar tilt, and temporary fixation wires were placed in the radial and ulnar columns securing the distal fragment. Next a compression screw was then placed distally and the ulnar column further securing the distal fragment. The remaining holes were then filled with locking screws in standard technique, using variable angle as needed. The K wires were removed and these holes were also filled with locking screws. The remaining holes in the shaft of the plate were then filled with locking screws in standard technique. The K wire was removed. Final fluoroscopy shots were taken and saved; checking in AP, lateral, facet views, and a 45 degree supination view making sure the screws were not within the joint. The ulnar styloid base fracture remained minimally displaced. The patient crest was checked and there was no instability. Once satisfactory, the wound was irrigated with normal saline and the pronator quadratus was tacked back down in place with 3-0 Vicryl [id number] sutures. The tourniquet was deflated, once again irrigating the wound and obtaining hemostasis with the bipolar electrocautery. The skin incision was closed with 5-0 nylon mattress and simple sutures. Sterile dressings were applied and the patient placed into a sugar tong splint. Patient was taken to the recovery room in stable condition. The patient will be seen at postoperative week #1 for dressing changes and placed into a long arm cast.
[2017-02-01] MEDS: *HR* Morphine 2 MG/ML SYRINGE IVP PRN ×3 (13:43→23:15)
[2017-02-01] MEDS: Sennosides 8.6 MG TABLET PO PRN (15:02)
--- NOTE | 2017-02-01 15:05 | Internal Med Progress Note ---
<Suleiman Maddox - Last Filed: 02/01/17 15:21> Date of Encounter: 02/01/17 Time of Encounter: 15:03 - Assessment and plan (1) Colles' fracture of left radius Current Visit: Yes Status: Acute Assessment and plan: The patient presented with a left Colles' fracture secondary to traumatic fall at home while trying to enter her garage and beat the garage door. - X-ray of the left wrist reviewed. - Neurovascularly intact - Patient underwent orthopedic intervention today. Stable with appropriate pain control Plan: - Continue pain control - Continue physical therapy - bottom worker involved for placement needs. Qualifiers: Qualified Code(s): S52.532A - Colles' fracture of left radius, initial encounter for closed fracture (2) Accelerated hypertension Current Visit: Yes Status: Acute Assessment and plan: Patient is not on blood pressure medications at home. Elevated blood pressures of SBP around 199 recorded now normotensive. - Patient has severe diffuse vascular stenosis and her BP may be a result of poor vascular response. Hx of hypotension with BP medications and no home BP medications. Plan: - Continue to monitor blood pressure - Hydralazine 5 mg IV every 6 hours when necessary for SBP greater than 160 (3) Hypothyroidism Current Visit: Yes Status: Chronic Assessment and plan: Continue home medications. Qualifiers: Hypothyroidism type: unspecified Qualified Code(s): E03.9 - Hypothyroidism , unspecified (4) Coronary artery disease Current Visit: Yes Status: Chronic Assessment and plan: Significant coronary artery disease history, history of mesenteric ischemia, carotid stenosis. - Carotid duplex demonstrates right prox. ICA has 40-59% stenosis, Left mid ICA has 80-99% stenosis. Medical management was preferred per notes. -Continue home medications. Qualifiers: Coronary Disease-Associated Artery/Lesion type: [place] artery [place] vs. transplanted heart: [place] heart Associated angina: without angina Qualified Code(s): I25.10 - Atherosclerotic heart disease of [place] coronary artery without angina pectoris (5) Fall at home Current Visit: Yes Status: Acute Assessment and plan: Patient fell at home resulting in left wrist fracture. She fell recently resulting in right rotator cuff tear. Patient is a high fall risk. Plans for rehabilitation placement post inpatient stay. - Physical therapy to evaluate - bottom worker involvement for placement. Qualifiers: Qualified Code(s): W19.XXXA - Unspecified fall, initial encounter; Y92.099 - Unspecified place in other non-institutional residence as the place of occurrence of the external cause (6) DVT prophylaxis Current Visit: Yes Status: Acute Assessment and plan: [place] Heparin Q12hrs - Subjective Interval history: Ms. Mack has been seen and evaluated this morning at patient bedside. She is awake alert interactive and awaiting orthopedic intervention of her left wrist today. She denies significant pain so that has been well controlled. She has been nothing by mouth overnight but had some difficulty sleeping with her chronic back pain and right shoulder pain. Right shoulder pain is no worse than before her previous fall resulting in rotator cuff tear. She denies any other concerns. Her daughter is at bedside and is concerned about her post hospital care as she does not have full-time care and she usually uses a walker now that she has injuries to both upper extremities her mobility will be limited. - Constitutional Vitals: Temp Pulse Resp BP Pulse Ox 97.4 F L 73 16 187/71 100 02/01/17 13:20 02/01/17 13:20 02/01/17 13:20 02/01/17 13:20 02/01/17 13:20 General appearance: Present: cooperative, A&O X 3, no acute distress - Head Head exam: Present: atraumatic, normocephalic - Eye Eye exam: Present: PERRL, conjuntiva pink, sclera anicteric Pupils: Present: PERRL - ENT ENT exam: Present: mucous membranes moist - Neck Neck exam general surgery: Present: supple, trachea midline. Absent: lymphadenopathy - Respiratory Respiratory exam: Present: CTAB. Absent: accessory muscle use, rales, rhonchi, wheezes - Cardiovascular Cardiovascular exam: Present: RRR, +S1, +S2. Absent: diastolic murmur, gallop, rubs, systolic murmur - GI/Abdominal GI/Abdominal exam: Present: normal bowel sounds, soft, no peritoneal signs. Absent: distended, tenderness - Extremities Exam Extremities exam: Present: warm, radial pulses palpable and symetrical Additional comments: Left upper extremity is in a sling, left forearm is wrapped with Ramiro bandaging. Fingers demonstrates appropriate neurovascular responses. There is some swelling to her distal fingers. Right upper extremity is without abnormalities. She does have tenderness to palpation of the posterior lateral shoulder. - Neurological Exam Neurological exam: Present: alert, oriented X3, no focal deficits. Absent: pronater drift, facial droop, speech deficit - Psychiatric Psychiatric exam: Present: normal affect, normal mood Internal Medicine: Result - Labs CBC & Chem 7: 01/31/17 00:14 01/31/17 00:14 - ABG Interpretation ABG results: PT/INR, D-dimer PT 11.1 Seconds (9.4-12.1) 01/31/17 00:14 - Impressions Impressions Elbow X-Ray 01/31/17 17:27 IMPRESSION: No evidence of a fracture of the left elbow. However, the study is limited secondary to the presence of a soft tissue cast and osteopenia. If there remains a clinical concern for a fracture after removal of the cast, repeat radiographs can be obtained. D/ / Best Sage MD / Best Sage MD Interpreting Provider: Best Sage MD Fluoroscopy 02/01/17 12:32 IMPRESSION: Intraprocedural fluoroscopic spot images as above. See separate procedure report for more information. D/ / Yury Guo MD / Yury Guo MD Interpreting Provider: Yury Guo MD Consult Discharge Plan - Plan Additional Instructions: Do not remove splint Elevate hand. Move fingers and thumb, making sure to make a full fist Use ice for 1 to 2 hour 3 times a day for the next 2 days. No lifting with the operative hand No sports or gym activities follow-up in 1 week with Geena Lawrence PA-C Referrals: Dayana Ellis MD [Primary Care Provider] - Prescriptions: Oxycodone HCl/Acetaminophen [Percocet 5-325 mg Tablet] 1 each PO Q4-6H PRN #40 tablet PRN Reason: Pain <Ramos Mercado - Last Filed: 02/02/17 07:57> Date of Encounter: 02/02/17 - Constitutional Vitals: Temp Pulse Resp BP Pulse Ox 98.9 F 83 16 179/69 93 02/02/17 07:12 02/02/17 07:12 02/02/17 07:12 02/02/17 07:12 02/02/17 07:12 Internal Medicine: Result - Labs CBC & Chem 7: 01/31/17 00:14 01/31/17 00:14 - ABG Interpretation ABG results: PT/INR, D-dimer PT 11.1 Seconds (9.4-12.1) 01/31/17 00:14 - Impressions Impressions Fluoroscopy 02/01/17 12:32 IMPRESSION: Intraprocedural fluoroscopic spot images as above. See separate procedure report for more information. D/ / Yury Guo MD / Yury Guo MD Interpreting Provider: Yury Guo MD - Attending Attestation I did see the patient with the Resident and agree with the assesement.. she is not able to be at home now that she cannot get around; she will need placement. Will also check with RAd. to see if R shoulder x-ray warranted due to increasing pain since fall or is CXR enough of a view of that area.
[2017-02-01] MEDS: *HR* OxyCODONE Immed Rel 5 MG TABLET PO PRN ×2 (15:28→21:26)
[2017-02-01] MEDS: Patient Taking Own Medication 1 EACH OP SCH (20:37)
[2017-02-01] MEDS: Acetaminophen 325 MG TABLET PO PRN (20:37)
[2017-02-02] MEDS: *HR* Heparin 5,000 UNIT/ML VIAL SQ SCH ×2 (05:03→16:53)
[2017-02-02] MEDS: *HR* Morphine 2 MG/ML SYRINGE IVP PRN ×4 (05:03→22:53)
[2017-02-02] MEDS: *HR* OxyCODONE Immed Rel 5 MG TABLET PO PRN ×3 (06:50→19:35)
--- NOTE | 2017-02-02 07:32 | Internal Med Progress Note ---
<Suleiman Maddox - Last Filed: 02/02/17 10:01> Date of Encounter: 02/02/17 Time of Encounter: 07:32 - Assessment and plan (1) Colles' fracture of left radius Current Visit: Yes Status: Acute Assessment and plan: The patient presented with a left Colles' fracture secondary to traumatic fall at home while trying to enter her garage and beat the garage door. - X-ray of the left wrist reviewed. - Neurovascularly intact - Patient underwent orthopedic intervention yesterday. Stable with appropriate pain control - Orthopedics okayed for discharge. Plan: - Continue pain control - Continue physical therapy - heater worker involved for placement needs. Qualifiers: Qualified Code(s): S52.532A - Colles' fracture of left radius, initial encounter for closed fracture (2) Accelerated hypertension Current Visit: Yes Status: Acute Assessment and plan: Patient is not on blood pressure medications at home. Elevated blood pressures of SBP around 199 recorded now normotensive. - Patient has severe diffuse vascular stenosis and her BP may be a result of poor vascular response. Hx of hypotension with BP medications and no home BP medications. Plan: - Continue to monitor blood pressure - Hydralazine 5 mg IV every 6 hours when necessary for SBP greater than 160 (3) Hypothyroidism Current Visit: Yes Status: Chronic Assessment and plan: Continue home medications. Qualifiers: Hypothyroidism type: unspecified Qualified Code(s): E03.9 - Hypothyroidism , unspecified (4) Coronary artery disease Current Visit: Yes Status: Chronic Assessment and plan: Significant coronary artery disease history, history of mesenteric ischemia, carotid stenosis. - Carotid duplex demonstrates right prox. ICA has 40-59% stenosis, Left mid ICA has 80-99% stenosis. Medical management was preferred per notes. -Continue home medications. Qualifiers: Coronary Disease-Associated Artery/Lesion type: [place] artery [place] vs. transplanted heart: [place] heart Associated angina: without angina Qualified Code(s): I25.10 - Atherosclerotic heart disease of [place] coronary artery without angina pectoris (5) Fall at home Current Visit: Yes Status: Acute Assessment and plan: Patient fell at home resulting in left wrist fracture. She fell recently resulting in right rotator cuff tear. Patient is a high fall risk. Plans for rehabilitation placement post inpatient stay. - Physical therapy to evaluate - heater worker involvement for placement. Qualifiers: Qualified Code(s): W19.XXXA - Unspecified fall, initial encounter; Y92.099 - Unspecified place in other non-institutional residence as the place of occurrence of the external cause (6) DVT prophylaxis Current Visit: Yes Status: Acute Assessment and plan: [place] Heparin Q12hrs - Subjective Interval history: Ms. Mack has been seen and evaluated this morning at patient bedside. She is awake alert interactive and her only complaint is left wrist pain. She says that the pain has been continuous since last night with not much improvement with pain medications that she has received. She also says that she has been constipated and would like something to help with her bowels. she is passing gas. She denies any further concerns. - Constitutional Vitals: Temp Pulse Resp BP Pulse Ox 98.9 F 83 16 179/69 93 02/02/17 07:12 02/02/17 07:12 02/02/17 07:12 02/02/17 07:12 02/02/17 07:12 General appearance: Present: cooperative, A&O X 3, no acute distress - Head Head exam: Present: atraumatic, normocephalic - Eye Eye exam: Present: PERRL, conjuntiva pink, sclera anicteric Pupils: Present: PERRL - ENT ENT exam: Present: mucous membranes moist - Neck Neck exam general surgery: Present: supple, trachea midline. Absent: lymphadenopathy - Respiratory Respiratory exam: Present: CTAB. Absent: accessory muscle use, rales, rhonchi, wheezes - Cardiovascular Cardiovascular exam: Present: RRR, +S1, +S2. Absent: diastolic murmur, gallop, rubs, systolic murmur - GI/Abdominal GI/Abdominal exam: Present: normal bowel sounds, soft, no peritoneal signs. Absent: distended, tenderness - Extremities Exam Extremities exam: Present: warm, radial pulses palpable and symetrical. Absent : calf tenderness, cyanotic, pedal edema Additional comments: Left upper extremity is in a sling, left forearm is wrapped with Ramiro bandaging. Fingers demonstrates appropriate neurovascular responses. There is some swelling to her distal fingers. - Neurological Exam Neurological exam: Present: alert, oriented X3, no focal deficits. Absent: pronater drift, facial droop, speech deficit - Psychiatric Psychiatric exam: Present: normal affect, normal mood Internal Medicine: Result - Labs CBC & Chem 7: 01/31/17 00:14 01/31/17 00:14 - ABG Interpretation ABG results: PT/INR, D-dimer PT 11.1 Seconds (9.4-12.1) 01/31/17 00:14 - Impressions Impressions Fluoroscopy 02/01/17 12:32 IMPRESSION: Intraprocedural fluoroscopic spot images as above. See separate procedure report for more information. D/ / Yury Guo MD / Yury Guo MD Interpreting Provider: Yury Guo MD Consult Discharge Plan - Plan Additional Instructions: Do not remove splint Elevate hand. Move fingers and thumb, making sure to make a full fist Use ice for 1 to 2 hour 3 times a day for the next 2 days. No lifting with the operative hand No sports or gym activities follow-up in 1 week with Geena Lawrence PA-C Referrals: Dayana Ellis MD [Primary Care Provider] - Prescriptions: Oxycodone HCl/Acetaminophen [Percocet 5-325 mg Tablet] 1 each PO Q4-6H PRN #40 tablet PRN Reason: Pain <Clyde Chopra - Last Filed: 02/02/17 18:23> Date of Encounter: 02/02/17 - Constitutional Vitals: Temp Pulse Resp BP Pulse Ox 98.8 F 81 16 184/70 94 02/02/17 11:04 02/02/17 11:04 02/02/17 11:04 02/02/17 11:04 02/02/17 11:04 Internal Medicine: Result - Labs CBC & Chem 7: 01/31/17 00:14 01/31/17 00:14 - ABG Interpretation ABG results: PT/INR, D-dimer PT 11.1 Seconds (9.4-12.1) 01/31/17 00:14 - Attending Attestation I examined this patient and my medical decision-making was reviewed with the Resident Physician, Dr Maddox. I agree with the documented findings, disposition and treatment plan as described except to the extent set forth below. She reports mild to moderate pain in the left wrist and mild pain in the right shoulder secondary to her chronic rotator cuff tear. His improved with IV morphine. On exam she is in no acute distress. Heart is regular S1-S2. Patient is awake alert oriented 3.
[2017-02-02] MEDS: Aspirin 81 MG TAB.CHEW PO SCH (07:47)
[2017-02-02] MEDS: Patient Taking Own Medication 1 EACH OP SCH ×2 (07:48→19:36)
--- NOTE | 2017-02-02 09:54 | Orthopedics Progress Note ---
Date of Encounter: 02/02/17 Time of Encounter: 09:52 Subjective Interval history: S: Pain controlled to the left wrist. No new complaints. O: Afebrile, vitals stable Left wrist in splint. Fingers mildly puffy. Grossly flexes and extends the fingers and thumb. They are sensate and well perfused. A: Post op day 1 after left wrist ORIF P NWB LUE Elevate LUE Orthopedically stable for discharge. Objective Vital signs: Vital Signs Temp Pulse Resp BP Pulse Ox 02/02/17 07:12 98.9 F 83 16 179/69 93 02/02/17 04:39 99.1 F 82 18 175/81 94 02/02/17 00:05 98.4 F 88 14 180/64 98 02/01/17 19:59 98.4 F 76 18 185/64 99 02/01/17 16:18 98.3 F 92 16 162/63 93 02/01/17 13:20 97.4 F L 73 16 187/71 100 02/01/17 10:45 77 16 175/94 99 Intake and Output 02/01/17 02/02/17 02/02/17 23:59 07:59 15:59 Intake Total 120 / 120 Output Total 200 / 200 Balance -200 / -200 120 / 120 Intake: Oral 120 / 120 Output: Urine 200 / 200 Other: Meal Breakfast Percent of Meal Consumed 10% - Labs CBC & BMP: 01/31/17 00:14 01/31/17 00:14 Labs: Abnormal lab results RBC 3.11 M/mcL (3.82-4.97) L 01/31/17 00:14 Hgb 10.5 g/dL (11.5-15.4) L 01/31/17 00:14 Hct 32.6 % (35.3-44.9) L 01/31/17 00:14 MCV 104.8 fL (83.0-100.0) H 01/31/17 00:14 MCH 33.8 pg (28.0-33.3) H 01/31/17 00:14 Glucose 106 mg/dL (70-99) H 01/31/17 00:14 TSH 11.127 mcIU/mL (0.350-4.840) H 01/31/17 00:14 Consult Discharge Plan - Plan Additional Instructions: Do not remove splint Elevate hand. Move fingers and thumb, making sure to make a full fist Use ice for 1 to 2 hour 3 times a day for the next 2 days. No lifting with the operative hand No sports or gym activities follow-up in 1 week with Geena Lawrence PA-C Referrals: Dayana Ellis MD [Primary Care Provider] - Prescriptions: Oxycodone HCl/Acetaminophen [Percocet 5-325 mg Tablet] 1 each PO Q4-6H PRN #40 tablet PRN Reason: Pain
[2017-02-02] MEDS: hydroCHLOROthiazide 25 MG TABLET PO SCH (16:52)
[2017-02-03] MEDS: *HR* OxyCODONE Immed Rel 5 MG TABLET PO PRN ×2 (05:39→20:55)
[2017-02-03] MEDS: Ondansetron 4 MG/2 ML VIAL IVP PRN (06:30)
[2017-02-03] MEDS: *HR* Heparin 5,000 UNIT/ML VIAL SQ SCH ×2 (06:30→16:17)
--- NOTE | 2017-02-03 08:10 | Internal Med Progress Note ---
<Suleiman Maddox - Last Filed: 02/03/17 09:10> Date of Encounter: 02/03/17 Time of Encounter: 08:08 - Assessment and plan (1) Colles' fracture of left radius Current Visit: Yes Status: Acute Assessment and plan: The patient presented with a left Colles' fracture secondary to traumatic fall at home while trying to enter her garage and beat the garage door. - X-ray of the left wrist reviewed. - Neurovascularly intact - Patient underwent orthopedic intervention yesterday. Stable with appropriate pain control - Orthopedics okayed for discharge. Plan: - Continue pain control - Continue physical therapy - wafer production worker involved for placement needs. Qualifiers: Qualified Code(s): S52.532A - Colles' fracture of left radius, initial encounter for closed fracture (2) Accelerated hypertension Current Visit: Yes Status: Acute Assessment and plan: Patient is not on blood pressure medications at home. Elevated blood pressures of SBP around 199 recorded now normotensive. - Patient has severe diffuse vascular stenosis and her BP may be a result of poor vascular response. Hx of hypotension with BP medications and no home BP medications. Plan: - Continue to monitor blood pressure - Hydralazine 5 mg IV every 6 hours when necessary for SBP greater than 160 (3) Hypothyroidism Current Visit: Yes Status: Chronic Assessment and plan: Continue home medications. Qualifiers: Hypothyroidism type: unspecified Qualified Code(s): E03.9 - Hypothyroidism , unspecified (4) Coronary artery disease Current Visit: Yes Status: Chronic Assessment and plan: Significant coronary artery disease history, history of mesenteric ischemia, carotid stenosis. - Carotid duplex demonstrates right prox. ICA has 40-59% stenosis, Left mid ICA has 80-99% stenosis. Medical management was preferred per notes. -Continue home medications. Qualifiers: Coronary Disease-Associated Artery/Lesion type: [place] artery [place] vs. transplanted heart: [place] heart Associated angina: without angina Qualified Code(s): I25.10 - Atherosclerotic heart disease of [place] coronary artery without angina pectoris (5) Fall at home Current Visit: Yes Status: Acute Assessment and plan: Patient fell at home resulting in left wrist fracture. She fell recently resulting in right rotator cuff tear. Patient is a high fall risk. Plans for rehabilitation placement post inpatient stay. - Physical therapy to evaluate - wafer production worker involvement for placement. Qualifiers: Qualified Code(s): W19.XXXA - Unspecified fall, initial encounter; Y92.099 - Unspecified place in other non-institutional residence as the place of occurrence of the external cause (6) Constipation Current Visit: Yes Status: Acute Assessment and plan: Patient continues to have constipation. She uses suppositories at home. Will add a suppository to her current bowel regiment. She is having flatulents. Qualifiers: Qualified Code(s): K59.01 - Slow transit constipation (7) DVT prophylaxis Current Visit: Yes Status: Acute Assessment and plan: SC Heparin Q12hrs - Subjective Interval history: Ms. Mack has been seen and evaluated this morning at patient bedside. She is awake alert interactive today. She maintains a good appetite. She has not moved her bowels but has had flatulents. She uses suppositories at home. He pain is controlled and she denies significant pain in her left wrist. She moves her fingers regularly. She has no further concerns today. She denies, fever, chills, N/V/D, abdominal pain, loss of sensation, tingling or new pain in her extremities. - Constitutional Vitals: Temp Pulse Resp BP Pulse Ox 98.9 F 84 16 156/63 95 02/03/17 06:45 02/03/17 06:45 02/03/17 06:45 02/03/17 06:45 02/03/17 06:45 General appearance: Present: cooperative, A&O X 3, no acute distress - Head Head exam: Present: atraumatic, normocephalic - Eye Eye exam: Present: PERRL, conjuntiva pink, sclera anicteric Pupils: Present: PERRL - ENT ENT exam: Present: mucous membranes moist - Neck Neck exam general surgery: Present: supple, trachea midline. Absent: lymphadenopathy - Respiratory Respiratory exam: Present: CTAB. Absent: accessory muscle use, rales, rhonchi, wheezes - Cardiovascular Cardiovascular exam: Present: RRR, +S1, +S2. Absent: diastolic murmur, gallop, rubs, systolic murmur - GI/Abdominal GI/Abdominal exam: Present: normal bowel sounds, soft, no peritoneal signs. Absent: distended, tenderness - Extremities Exam Additional comments: Left upper extremity is in a sling, left forearm is wrapped with Ramiro bandaging. Fingers demonstrates appropriate neurovascular responses. There is some swelling to her distal fingers. All other extremities she is moving spontaneously without restriction. - Neurological Exam Neurological exam: Present: alert, oriented X3, no focal deficits. Absent: pronater drift, facial droop, speech deficit - Psychiatric Psychiatric exam: Present: normal affect, normal mood Internal Medicine: Result - Labs CBC & Chem 7: 01/31/17 00:14 01/31/17 00:14 - ABG Interpretation ABG results: PT/INR, D-dimer PT 11.1 Seconds (9.4-12.1) 01/31/17 00:14 - VTE Documentation of Mechanical Device: Intermittent pneumatic compression device Consult Discharge Plan - Plan Additional Instructions: Do not remove splint Elevate hand. Move fingers and thumb, making sure to make a full fist Use ice for 1 to 2 hour 3 times a day for the next 2 days. No lifting with the operative hand No sports or gym activities follow-up in 1 week with Geena Lawrence PA-C Referrals: Dayana Ellis MD [Primary Care Provider] - Prescriptions: Oxycodone HCl/Acetaminophen [Percocet 5-325 mg Tablet] 1 each PO Q4-6H PRN #40 tablet PRN Reason: Pain <Clyde Chopra - Last Filed: 02/03/17 16:21> Date of Encounter: 02/03/17 - Constitutional Vitals: Temp Pulse Resp BP Pulse Ox 98.5 F 73 18 132/76 96 02/03/17 14:58 02/03/17 14:58 02/03/17 14:58 02/03/17 14:58 02/03/17 14:58 Internal Medicine: Result - Labs CBC & Chem 7: 01/31/17 00:14 01/31/17 00:14 - ABG Interpretation ABG results: PT/INR, D-dimer PT 11.1 Seconds (9.4-12.1) 01/31/17 00:14 - Attending Attestation I examined this patient and my medical decision-making was reviewed with the Resident Physician, Dr Maddox. I agree with the documented findings, disposition and treatment plan as described except to the extent set forth below. Patient reports mild dizziness with standing which she has had for a long time but no presyncopal symptoms no chest pain. She is awake alert oriented 3. She complains of left wrist pain and right shoulder pain. Heart is regular rate rhythm S1-S2 lungs are clear. I added low-dose HCTZ for hypertension. We will monitor blood pressure closely.
[2017-02-03] MEDS: Aspirin 81 MG TAB.CHEW PO SCH (08:20)
[2017-02-03] MEDS: hydroCHLOROthiazide 25 MG TABLET PO SCH (08:21)
[2017-02-03] MEDS: *HR* Morphine 2 MG/ML SYRINGE IVP PRN ×4 (08:21→22:41)
[2017-02-03] MEDS: Patient Taking Own Medication 1 EACH OP SCH ×2 (08:26→20:55)
[2017-02-03] MEDS: Bisacodyl 10 MG RECTAL SUPPOSITORY RC PRN (10:43)
[2017-02-04] MEDS: *HR* Heparin 5,000 UNIT/ML VIAL SQ SCH ×2 (05:53→16:49)
[2017-02-04] MEDS: *HR* Morphine 2 MG/ML SYRINGE IVP PRN ×2 (05:53→11:55)
[2017-02-04] MEDS: Ondansetron 4 MG/2 ML VIAL IVP PRN (06:01)
[2017-02-04] MEDS: Patient Taking Own Medication 1 EACH OP SCH ×2 (07:35→19:50)
[2017-02-04] MEDS: hydroCHLOROthiazide 25 MG TABLET PO SCH (07:35)
[2017-02-04] MEDS: Aspirin 81 MG TAB.CHEW PO SCH (07:35)
--- NOTE | 2017-02-04 08:25 | Discharge Summary ---
<KendrickSuleiman haywood Jagdeep - Last Filed: 02/04/17 08:59> Date of Encounter: 02/04/17 Time of Encounter: 08:00 - Discharge Diagnosis (1) Colles' fracture of left radius Priority: Primary Status: Acute Qualifiers: Qualified Code(s): S52.532A - Colles' fracture of left radius, initial encounter for closed fracture (2) Accelerated hypertension Priority: Secondary Status: Acute (3) Hypothyroidism Priority: Secondary Status: Chronic Qualifiers: Hypothyroidism type: unspecified Qualified Code(s): E03.9 - Hypothyroidism , unspecified (4) Coronary artery disease Priority: Secondary Status: Chronic Qualifiers: Coronary Disease-Associated Artery/Lesion type: [place] artery [place] vs. transplanted heart: [place] heart Associated angina: without angina Qualified Code(s): I25.10 - Atherosclerotic heart disease of [place] coronary artery without angina pectoris (5) Fall at home Priority: Primary Status: Acute Qualifiers: Qualified Code(s): W19.XXXA - Unspecified fall, initial encounter; Y92.099 - Unspecified place in other non-institutional residence as the place of occurrence of the external cause (6) Constipation Priority: Secondary Status: Acute Qualifiers: Qualified Code(s): K59.00 - Constipation, unspecified - Discharge Medications Prescriptions: Hydrochlorothiazide 12.5 mg PO DAILY #14 tablet Oxycodone HCl/Acetaminophen [Percocet 5-325 mg Tablet] 1 each PO Q4-6H PRN #40 tablet PRN Reason: Pain Home Medications: Acetaminophen [Tylenol Arthritis] 650 mg PO Q8H PRN 10/31/15 [History] Aspirin 81 mg PO DAILY 10/31/15 [History] Calcium Carbonate [Calcium] 1,200 mg PO DAILY 10/31/15 [History] Citalopram Hydrobromide [Celexa] 10 mg PO DAILY 10/31/15 [History] Cyclosporine [Restasis] 1 drop OP BID 10/31/15 [History] Levothyroxine [Synthroid] 50 mcg PO DAILY 10/31/15 [History] Nitroglycerin [Nitrostat] 0.4 mg SL AD PRN 10/31/15 [History] Sennosides [Senna] 8.6 mg PO TID PRN 10/31/15 [History] Zoledronic Acid (Reclast) [Reclast 5 MG/100 ML] 5 mg IV [id number] 10/31/15 [ History] Atorvastatin [Lipitor] 40 mg PO HS 01/31/17 [History] Omeprazole 20 mg PO BID 01/31/17 [History] Tramadol HCl [Ultram] 50 mg PO TID PRN 01/31/17 [History] Oxycodone HCl/Acetaminophen [Percocet 5-325 mg Tablet] 1 each PO Q4-6H PRN #40 tablet 02/01/17 [Rx] Hydrochlorothiazide 12.5 mg PO DAILY #14 tablet 02/04/17 [Rx] Allergies/Adverse Reactions: Allergies dicyclomine [From Bentyl] Allergy (Verified 08/31/15 13:16) Hives Sulfa (Sulfonamide Antibiotics) Allergy (Verified 08/31/15 13:16) Hives Date of admission: 01/31/17 01:39 Primary care physician: Dayana Ellis Consults: 01/31/17 02:32 Consult to Pastoral Services [CONS] Routine Comment: Consult to News Editor [CONS] Routine Reason for SW Consult: Potential need for ECF 02/01/17 16:50 Consult to Occupational Therapy [CONS] Routine Comment: Evaluate, develop and implement POC Consult to Physical Therapy [CONS] Routine Comment: Evaluate, develop and implement POC Discharging clinician: Suleiman Maddox Anticipated date of discharge: 02/04/17 - Patient Status Disposition: Transfer SNF Condition: Fair Functional capacity at discharge: independent ambulation Overall status at discharge: patient is progressing back to baseline - Discharge Instructions Follow Up With: Dayana Ellis MD [Primary Care Provider] - Additional Instructions: Do not remove splint Elevate hand. Move fingers and thumb, making sure to make a full fist Use ice for 1 to 2 hour 3 times a day for the next 2 days. No lifting with the operative hand No sports or gym activities follow-up in 1 week with Geena Lawrence PA-C Follow up with your PCP in the next 3-5 days. - Diet and Activity Activity: as per physical therapy Diet: advance to your usual diet Interval History: Discussed below. Hospital course: Ms. Mack is a 81 year old female with past medical h/o CAD s/p stent placement and osteoporosis who was admitted to [facility] on 01/31/2017 after suffering a traumatic fall landing on her left wrist inducing a Colles' fracture. She was admitted to the general medical floor and orthopedic surgery was consulted. Patient was provided pain control. X-ray demonstrated left distal radius and ulnar styloid fractures. It was determined that she would need surgical fixation, and she was placed in splint and dressing. She was kept nothing by mouth overnight in preparation for surgical intervention the morning. She underwentleft ORIF on 02/01/2017 without complication. Postoperatively she was seen and evaluated by physical therapy. Prior to her admission she had suffered a previous fall resulting in right shoulder rotator cuff tear. She required a walker for mobility at home and now with a left distal radius fracture her mobility was limited. During her inpatient stay her blood pressure was found to be elevated and she was started on low-dose HCTZ which regulated her blood pressure. She remained stable through the remainder of her inpatient stay and was seen and evaluated on 2016 and deemed stable for discharge to short-term nursing facility for rehabilitation. At the time of discharge she was provided HCTZ 12.5 mg by mouth once a day and orthopedic surgery provided her a prescription for pain control. - Time Spent with Patient Total time spent providing and/or coordinating discharge services: - Constitutional Vitals: Temp Pulse Resp BP Pulse Ox 98.8 F 77 18 153/81 93 02/04/17 06:33 02/04/17 06:33 02/04/17 06:33 02/04/17 06:33 02/04/17 06:33 General appearance: Present: cooperative, A&O X 3, no acute distress - Head Head exam: Present: atraumatic, normocephalic - Eye Eye exam: Present: PERRL, conjuntiva pink, sclera anicteric Pupils: Present: PERRL - ENT ENT exam: Present: mucous membranes moist - Neck Neck exam general surgery: Present: supple, trachea midline. Absent: lymphadenopathy - Respiratory Respiratory exam: Present: CTAB. Absent: accessory muscle use, rales, rhonchi, wheezes - Cardiovascular Cardiovascular exam: Present: RRR, +S1, +S2. Absent: diastolic murmur, gallop, rubs, systolic murmur - GI/Abdominal GI/Abdominal exam: Present: normal bowel sounds, soft, no peritoneal signs. Absent: distended, tenderness - Extremities Exam Extremities exam: Present: warm, radial pulses palpable and symetrical. Absent : calf tenderness, cyanotic, pedal edema - Neurological Exam Neurological exam: Present: alert, oriented X3, no focal deficits. Absent: pronater drift, facial droop, speech deficit - Psychiatric Psychiatric exam: Present: normal affect, normal mood - Skin Skin exam: Present: dry, intact - VTE Documentation of Mechanical Device: Intermittent pneumatic compression device <Clyde Chopra - Last Filed: 02/04/17 09:32> Date of Encounter: 02/04/17 Date of admission: 01/31/17 01:39 Primary care physician: Dayana Ellis Consults: 01/31/17 02:32 Consult to Pastoral Services [CONS] Routine Comment: Consult to News Editor [CONS] Routine Reason for SW Consult: Potential need for ECF 02/01/17 16:50 Consult to Occupational Therapy [CONS] Routine Comment: Evaluate, develop and implement POC Consult to Physical Therapy [CONS] Routine Comment: Evaluate, develop and implement POC Hospital course: Ms. Mack is a 81 year old female - Time Spent with Patient Total time spent providing and/or coordinating discharge services: - Constitutional Vitals: Temp Pulse Resp BP Pulse Ox 97.6 F 81 18 138/59 98 02/04/17 07:55 02/04/17 07:55 02/04/17 07:55 02/04/17 07:55 02/04/17 07:55 - Attending Attestation I examined this patient and my medical decision-making was reviewed with the Resident Physician, Dr Maddox. I agree with the documented findings, disposition and treatment plan as described except to the extent set forth below. On exam she is in no acute distress awake alert oriented 3. Her left upper extremity is immobilized in a wrist brace. She is able to move her fingers. She has good sensation on the left hand. Abdomen is soft and mildly tender to palpation with no guarding or rebound tenderness. Plan we will discharge her to subacute rehabilitation facility for physical therapy. She has mild constipation and has not had a bowel movement for 2 days. She will be prescribed senna as needed and MiraLAX as needed for constipation.
--- NOTE | 2017-02-04 08:30 | Physician Discharge Referral ---
ExtendedCare Referral Info Transfer To: SNF Provider in Charge after Transfer: PCP Institutional Level of Care: Skilled - Diagnosis (1) Colles' fracture of left radius Priority: Primary Status: Acute (2) Accelerated hypertension Priority: Secondary Status: Acute (3) Hypothyroidism Priority: Secondary Status: Chronic (4) Coronary artery disease Priority: Secondary Status: Chronic (5) Fall at home Priority: Primary Status: Acute (6) Constipation Priority: Primary Status: Acute - Transfer Medications Prescriptions: Hydrochlorothiazide 12.5 mg PO DAILY #14 tablet Oxycodone HCl/Acetaminophen [Percocet 5-325 mg Tablet] 1 each PO Q4-6H PRN #40 tablet PRN Reason: Pain Home Medications: Acetaminophen [Tylenol Arthritis] 650 mg PO Q8H PRN 10/31/15 [History] Aspirin 81 mg PO DAILY 10/31/15 [History] Calcium Carbonate [Calcium] 1,200 mg PO DAILY 10/31/15 [History] Citalopram Hydrobromide [Celexa] 10 mg PO DAILY 10/31/15 [History] Cyclosporine [Restasis] 1 drop OP BID 10/31/15 [History] Levothyroxine [Synthroid] 50 mcg PO DAILY 10/31/15 [History] Nitroglycerin [Nitrostat] 0.4 mg SL AD PRN 10/31/15 [History] Sennosides [Senna] 8.6 mg PO TID PRN 10/31/15 [History] Zoledronic Acid (Reclast) [Reclast 5 MG/100 ML] 5 mg IV [id number] 10/31/15 [ History] Atorvastatin [Lipitor] 40 mg PO HS 01/31/17 [History] Omeprazole 20 mg PO BID 01/31/17 [History] Tramadol HCl [Ultram] 50 mg PO TID PRN 01/31/17 [History] Oxycodone HCl/Acetaminophen [Percocet 5-325 mg Tablet] 1 each PO Q4-6H PRN #40 tablet 02/01/17 [Rx] Hydrochlorothiazide 12.5 mg PO DAILY #14 tablet 02/04/17 [Rx] Allergies/Adverse Reactions: Allergies dicyclomine [From Bentyl] Allergy (Verified 08/31/15 13:16) Hives Sulfa (Sulfonamide Antibiotics) Allergy (Verified 11/04/15 13:16) Hives - Respiratory Orders Smoking Cessation: Smoking cessation has been advised. For more information, call the [place] Tobacco Quit Line at 2-071-LVEG-NOW. - Ancillary Orders May use pressure relief devices daily prn, May consult with Dentist, Hydro Plant Site Manager, Spoon Maker PRN - Advance Directives Living Will: No Power of Wet Mixer: No Code Status: Full Code - Mobility Orders Ambulate - Rehabiliation Orders Rehab Potential: Good Rehab Orders: ROM Exercises, Evaluation for Physical Therapy, Evaluation for Occupational Therapy - Treatments Skin tear care topically daily PRN per policy, Fleet enema rectally every other day PRN cleansing purposes - Diet Orders Regular CERTIFICATION: I certify that the transfer of the above named patient to an Extended Care Facility is necessary for the continuing treatment of the diagnosis listed. The above information is true and accurate reflection of patient's current condition. Confidential - Redisclosure prohibited without a patient's written consent.
[2017-02-04] MEDS: *HR* OxyCODONE Immed Rel 5 MG TABLET PO PRN ×3 (08:38→21:59)
[2017-02-04] MEDS: Acetaminophen 325 MG TABLET PO PRN (08:50)
[2017-02-04] MEDS: Sennosides 8.6 MG TABLET PO PRN (16:51)
[2017-02-05] MEDS: *HR* Heparin 5,000 UNIT/ML VIAL SQ SCH ×2 (05:21→18:14)
[2017-02-05] MEDS: *HR* OxyCODONE Immed Rel 5 MG TABLET PO PRN ×3 (06:15→20:55)
[2017-02-05] MEDS: hydroCHLOROthiazide 25 MG TABLET PO SCH (08:12)
[2017-02-05] MEDS: Aspirin 81 MG TAB.CHEW PO SCH (08:12)
[2017-02-05] MEDS: Patient Taking Own Medication 1 EACH OP SCH ×2 (08:13→20:32)
[2017-02-05] MEDS: Acetaminophen 325 MG TABLET PO PRN ×2 (08:17→16:05)
--- NOTE | 2017-02-05 08:29 | Internal Med Progress Note ---
Date of Encounter: 02/05/17 Time of Encounter: 08:26 - Assessment and plan (1) Hypothyroidism Current Visit: Yes Status: Chronic Assessment and plan: TSH is elevated. She does not have signs or symptoms of hypothyroidism or hyperthyroidism. She is currently on levothyroxine 50 g daily. We will continue with this dose. Follow-up outpatient. Qualifiers: Hypothyroidism type: unspecified Qualified Code(s): E03.9 - Hypothyroidism , unspecified (2) DVT prophylaxis Current Visit: Yes Status: Acute Assessment and plan: [place] Heparin Q12hrs (3) Colles' fracture of left radius Current Visit: Yes Status: Acute Assessment and plan: 02/05/2017: Social work involved for discharge placement for subacute rehabilitation. Pending insurance authorization. Continue physical therapy and rehabilitation for left wrist fracture. The patient presented with a left Colles' fracture secondary to traumatic fall at home while trying to enter her garage and beat the garage door. - X-ray of the left wrist reviewed. - Neurovascularly intact - Patient underwent orthopedic intervention. Stable with appropriate pain control - Orthopedics okayed for discharge. Plan: - Continue pain control - Continue physical therapy - clearing tub worker involved for placement needs. Qualifiers: Qualified Code(s): S52.532A - Colles' fracture of left radius, initial encounter for closed fracture (4) Fall at home Current Visit: Yes Status: Acute Assessment and plan: Patient fell at home resulting in left wrist fracture. She fell recently resulting in right rotator cuff tear. Patient is a high fall risk. Plans for rehabilitation placement post inpatient stay. - Physical therapy - clearing tub worker involvement for placement. Qualifiers: Qualified Code(s): W19.XXXA - Unspecified fall, initial encounter; Y92.099 - Unspecified place in other non-institutional residence as the place of occurrence of the external cause (5) Constipation Current Visit: Yes Status: Acute Assessment and plan: Patient continues to have constipation. She uses suppositories at home. Will add a stool softener and suppository to her current bowel regiment. She is having flatulents. Qualifiers: Qualified Code(s): K59.00 - Constipation, unspecified (6) Essential hypertension Current Visit: Yes Status: Acute Assessment and plan: Patient was started on treatment with low dose HCTZ. Blood pressure is well controlled right now with systolic ranging from 110-150. She appears to tolerate this medication well and HCTZ will be added to her discharge medication. - Subjective Interval history: Patient currently reports moderate dull headache, improved with oral pain medication. No associated vision changes. She still has mild pain in her left wrist and right shoulder. - Constitutional Vitals: Temp Pulse Resp BP Pulse Ox 98.3 F 82 18 125/63 94 02/05/17 06:51 02/05/17 06:51 02/05/17 06:51 02/05/17 06:51 02/05/17 06:51 General appearance: Present: cooperative, A&O X 3, no acute distress Internal Medicine: Result - Labs CBC & Chem 7: 01/31/17 00:14 01/31/17 00:14 Labs: TSH on 01/31/2017 was 11.1. - ABG Interpretation ABG results: PT/INR, D-dimer PT 11.1 Seconds (9.4-12.1) 01/31/17 00:14 - VTE Documentation of Mechanical Device: Intermittent pneumatic compression device Consult Discharge Plan - Plan Additional Instructions: Do not remove splint Elevate hand. Move fingers and thumb, making sure to make a full fist Use ice for 1 to 2 hour 3 times a day for the next 2 days. No lifting with the operative hand No sports or gym activities follow-up in 1 week with Geena Lawrence PA-C Follow up with your PCP in the next 3-5 days. Referrals: Geena Lawrence, PAC [Physician Clerk Rating] - 02/11/17 9:00 am Dayana Ellis MD [Primary Care Provider] - Prescriptions: Hydrochlorothiazide 12.5 mg PO DAILY #14 tablet Oxycodone HCl/Acetaminophen [Percocet 5-325 mg Tablet] 1 each PO Q4-6H PRN #40 tablet PRN Reason: Pain
[2017-02-05] MEDS: Sennosides/Docusate Sodium TABLET PO SCH (11:24)
[2017-02-06 04:54] LABS: Basophils % 0.3 %; Eosinophils # 0.2 K/mcL (0.0-0.6); Eosinophils % 2.9 %; Hematocrit 28.6 % (35.3-44.9); Hemoglobin 9.4 g/dL (11.5-15.4); Immature Granulocytes % 0.1 % (0-4); Lymphocytes # 2.5 K/mcL (0.6-4.6); Lymphocytes % 35.5 %; Mean Corpuscular HGB Conc 32.9 g/dL (31.6-35.5); Mean Corpuscular Hemoglobin 33.6 pg (28.0-33.3); Mean Corpuscular Volume 102.1 fL (83.0-100.0); Mean Platelet Volume 10.5 fL (9.4-12.4); Monocytes # 0.6 K/mcL (0.0-1.3); Monocytes % 8.7 %; Neutrophils # 3.7 K/mcL (1.6-8.9); Platelet Count 222 K/mcL (140-400); Red Cell Distribution Width 12.5 % (11.5-14.5); Segmented Neutrophils % 52.5 %
[2017-02-06] MEDS: *HR* Heparin 5,000 UNIT/ML VIAL SQ SCH (05:17)
[2017-02-06 05:18] LABS: BUN/Creatinine Ratio 35 (6-26); Blood Urea Nitrogen 27 mg/dL (7-20); Calcium 8.8 mg/dL (8.6-10.8); Carbon Dioxide 28 mEq/L (19-29); Chloride 102 mEq/L (98-109); Glucose 104 mg/dL (70-99); Osmolality,Calculated 293 (280-300); Potassium 3.7 mEq/L (3.5-4.5); Sodium 139 mEq/L (136-145); eGFR For African Americans > 60 (> 60); eGFR For Non-African Americans > 60 (> 60)
[2017-02-06] MEDS: Bisacodyl 10 MG RECTAL SUPPOSITORY RC PRN (08:07)
[2017-02-06] MEDS: hydroCHLOROthiazide 25 MG TABLET PO SCH (08:07)
[2017-02-06] MEDS: *HR* OxyCODONE Immed Rel 5 MG TABLET PO PRN ×2 (08:07→12:54)
[2017-02-06] MEDS: Sennosides/Docusate Sodium TABLET PO SCH (08:08)
[2017-02-06] MEDS: Aspirin 81 MG TAB.CHEW PO SCH (08:08)
[2017-02-06] MEDS: Patient Taking Own Medication 1 EACH OP SCH (08:09)
[2017-02-06 10:11] VITALS: BP 138/70
[2017-02-06] MEDS: Acetaminophen 325 MG TABLET PO PRN (11:02)
--- NOTE | 2017-02-06 13:57 | Internal Med Progress Note ---
Date of Encounter: 02/06/17 Time of Encounter: 10:15 - Assessment and plan (1) Colles' fracture of left radius Current Visit: Yes Status: Acute Assessment and plan: Status post left wrist open reduction and internal fixation of distal radius. Continue supportive care and physical therapy. Pain control. Awaiting placement to skilled rehabilitation. Qualifiers: Encounter type: initial encounter Fracture type: closed Qualified Code(s) : S52.532A - Colles' fracture of left radius, initial encounter for closed fracture (2) Hypothyroidism Current Visit: Yes Status: Chronic Assessment and plan: Continue levothyroxine Qualifiers: Hypothyroidism type: unspecified Qualified Code(s): E03.9 - Hypothyroidism , unspecified (3) DVT prophylaxis Current Visit: Yes Status: Acute (4) Fall at home Current Visit: Yes Status: Acute Assessment and plan: Awaiting placement to skilled rehabilitation. Continue PTOT Qualifiers: Encounter type: subsequent encounter Qualified Code(s): W19.XXXD - Unspecified fall, subsequent encounter; Y92.099 - Unspecified place in other non -institutional residence as the place of occurrence of the external cause (5) Constipation Current Visit: Yes Status: Acute Assessment and plan: Continue laxatives as needed Qualifiers: Constipation type: chronic idiopathic constipation Qualified Code(s): K59.04 - Chronic idiopathic constipation (6) Essential hypertension Current Visit: Yes Status: Acute Assessment and plan: Fairly controlled. Continue hydrochlorothiazide - Subjective Interval history: Patient is awake and alert. Pain is well controlled. No new complaints at this time. - Constitutional Vitals: Temp Pulse Resp BP Pulse Ox 98.3 F 82 14 138/70 98 02/06/17 10:09 02/06/17 10:09 02/06/17 10:09 02/06/17 10:09 02/06/17 10:09 General appearance: Present: cooperative, A&O X 3, no acute distress - Respiratory Respiratory exam: Present: CTAB. Absent: accessory muscle use, rales, rhonchi, wheezes - Cardiovascular Cardiovascular exam: Present: RRR, +S1, +S2. Absent: diastolic murmur, gallop, rubs, systolic murmur - GI/Abdominal GI/Abdominal exam: Present: normal bowel sounds, soft, no peritoneal signs. Absent: distended, tenderness - Extremities Exam Extremities exam: Present: warm, radial pulses palpable and symetrical. Absent : calf tenderness, cyanotic, pedal edema Additional comments: Left upper extremity in brace. - Neurological Exam Neurological exam: Present: alert, CN II-XII intact, oriented X3, no focal deficits. Absent: facial droop, speech deficit - Skin Skin exam: Present: dry, intact Internal Medicine: Result - Labs CBC & Chem 7: 02/06/17 04:08 02/06/17 04:08 Labs: Short CBC 02/06/17 Range/Units 04:08 WBC 7.0 (4.3-11.1) K/mcL Hgb 9.4 L (11.5-15.4) g/dL Hct 28.6 L (35.3-44.9) % Plt Count 222 (140-400) K/mcL Neutrophils # 3.7 (1.6-8.9) K/mcL BMP 02/06/17 04:08 Sodium 139 Potassium 3.7 Chloride 102 Carbon Dioxide 28 BUN 27 H Creatinine 0.78 Glucose 104 H Calcium 8.8 - ABG Interpretation ABG results: PT/INR, D-dimer PT 11.1 Seconds (9.4-12.1) 01/31/17 00:14 - VTE Documentation of Mechanical Device: Intermittent pneumatic compression device Consult Discharge Plan - Plan Additional Instructions: Do not remove splint Elevate hand. Move fingers and thumb, making sure to make a full fist Use ice for 1 to 2 hour 3 times a day for the next 2 days. No lifting with the operative hand No sports or gym activities follow-up in 1 week with Geena Lawrence PA-C Follow up with your PCP in the next 3-5 days. Referrals: Geena Lawrence, PAC [Physician Pss Delivery Professional] - 02/11/17 9:00 am Dayana Ellis MD [Primary Care Provider] - 02/19/17 9:45 am Manuela Lorenzo MD [Partnered Physician] - 02/07/17 3:10 pm Paulina Simms MD [Partnered Physician] - 02/07/17 2:00 pm Prescriptions: Hydrochlorothiazide 12.5 mg PO DAILY #14 tablet Oxycodone HCl/Acetaminophen [Percocet 5-325 mg Tablet] 1 each PO Q4-6H PRN #40 tablet PRN Reason: Pain - Attending Attestation This document has been at least partially created by [employer] recognition technology by Dr. Ash. Errors in grammar, wording or other phrases may exist. If errors are found after the documentation is signed, they will be addressed individually in the addendum section of this document when appropriate.
== END 2017-02-06 16:35 ==
LOC: EMEROO 20:31 → 3NENU 20:31 → SUATTDRO 01-31 01:39 → 3NENU 01-31 02:00
PROVIDERS: ADMIT Internal Medicine; ATTEND Internal Medicine

== ENCOUNTER 2017-05-21 19:18 | Inpatient (IN) ==
[2017-05-21] MEDS ORDERED: Ondansetron 4 MG/2 ML VIAL IVP ONE (19:24)
[2017-05-21] MEDS ORDERED: *HR* HYDROmorphone (PF) 1 MG/ML SYRINGE IVP ONE ×3 (19:24→21:33)
[2017-05-21 21:00] LABS: Hematocrit 31.5 % (35.3-44.9); Hemoglobin 9.9 g/dL (11.5-15.4); Immature Granulocytes % 0.5 % (0-4); Mean Corpuscular HGB Conc 31.4 g/dL (31.6-35.5); Mean Corpuscular Hemoglobin 31.9 pg (28.0-33.3); Mean Corpuscular Volume 101.6 fL (83.0-100.0); Mean Platelet Volume 10.9 fL (9.4-12.4); Monocytes % 5.9 %; Platelet Count 230 K/mcL (140-400); Red Cell Distribution Width 14.8 % (11.5-14.5); Segmented Neutrophils % 62.6 %
[2017-05-21 21:01] LABS: Basophils % 0.2 %; Eosinophils # 0.3 K/mcL (0.0-0.6); Eosinophils % 2.8 %; Lymphocytes # 3.1 K/mcL (0.6-4.6); Monocytes # 0.6 K/mcL (0.0-1.3); Neutrophils # 6.8 K/mcL (1.6-8.9)
[2017-05-21 21:07] LABS: Prothrombin Time 10.3 Seconds (9.4-12.1)
[2017-05-21 21:08] LABS: BUN/Creatinine Ratio 33 (6-26); Blood Urea Nitrogen 22 mg/dL (7-20); Calcium 7.1 mg/dL (8.6-10.8); Carbon Dioxide 24 mEq/L (19-29); Chloride 109 mEq/L (98-109); Glucose 78 mg/dL (70-99); Osmolality,Calculated 288 (280-300); Potassium 3.7 mEq/L (3.5-4.5); Sodium 138 mEq/L (136-145); eGFR For African Americans > 60 (> 60); eGFR For Non-African Americans > 60 (> 60)
--- NOTE | 2017-05-21 21:14 | Emergency Department Note ---
Disposition Clinical Impression: Fall Qualifiers: Encounter type: initial encounter Qualified Code(s): W19.XXXA - Unspecified fall, initial encounter Femur fracture, left Qualifiers: Encounter type: initial encounter Femur location: unspecified portion of femur Fracture type: closed Fracture morphology: unspecified fracture morphology Qualified Code(s): S72.92XA - Unspecified fracture of left femur, initial encounter for closed fracture Disposition: Admitted As Inpatient Condition: Good Lower Extremity Injury HPI - General Chief Complaint: ED Extremity Problem,Nontraumatic Stated Complaint: R leg pain Time Seen by Provider: 05/21/17 19:24 Source: patient, EMS Limitations: no limitations Nursing Notes Reviewed: Yes Vital Signs Reviewed: Yes - History of Present Illness HPI Narrative: Patient here for evaluation after fall. Patient pressed her life alert button and squad brought her in for evaluation. On exam the patient has a deformity to the left thigh with medial rotation and shortening. The patient said she was in her kitchen when she bent down to pick something up and got dizzy and fell. Patient states that she did not pass out. Did not hit her head. Takes an aspirin daily but does not take any other anticoagulation. Previous history of arthritis as well as SD that required angioplasty and stent placement. - Related Data Home Medications Medication Instructions Recorded Confirmed Aspirin 81 mg PO DAILY 10/31/15 05/21/17 Calcium Carbonate [Calcium] 1,200 mg PO DAILY 10/31/15 05/21/17 Citalopram Hydrobromide [Celexa] 10 mg PO DAILY 10/31/15 05/21/17 Cyclosporine [Restasis] 1 drop OP BID 10/31/15 05/21/17 Levothyroxine [Synthroid] 50 mcg PO DAILY 10/31/15 05/21/17 Nitroglycerin [Nitrostat] 0.4 mg SL AD PRN 10/31/15 05/21/17 Sennosides [Senna] 8.6 mg PO TID PRN 10/31/15 05/21/17 Zoledronic Acid (Reclast) [Reclast 5 mg IV [id number] 10/31/15 05/21/17 Premix 5 MG/100 ML] Atorvastatin [Lipitor] 40 mg PO HS 01/31/17 05/21/17 Omeprazole 20 mg PO BID 04/06/17 07/25/17 Tramadol HCl [Ultram] 50 - 100 mg PO TID PRN 01/31/17 05/21/17 Gabapentin [Neurontin] 300 mg PO TID 05/21/17 05/21/17 Meloxicam [Mobic] 15 mg PO DAILY 05/21/17 05/21/17 Allergies Allergy/AdvReac Type Severity Reaction Status Date / Time dicyclomine [From Bentyl] Allergy Hives Verified 05/21/17 21:42 Sulfa (Sulfonamide Allergy Hives Verified 05/21/17 21:42 Antibiotics) Review of Systems: CONSTITUTIONAL: Fall No weight loss, fever, chills, weakness or fatigue. HEENT: Eyes: No visual changes. Ears, Nose, Throat: No hearing loss, difficulty talking or unable to swallow. SKIN: No rash or itching. CARDIOVASCULAR: No chest pain, chest pressure or chest discomfort. No palpitations or edema. RESPIRATORY: No shortness of breath, cough or sputum. GASTROINTESTINAL: No anorexia, nausea, vomiting or diarrhea. No abdominal pain or blood. GENITOURINARY: No burning on urination or hematuria. NEUROLOGICAL: No headache, dizziness, syncope, paralysis, ataxia, numbness or tingling in the extremities. No change in bowel or bladder control. MUSCULOSKELETAL: left leg pain Past Medical History - Past Medical History Attestation: Yes The following information was validated with the patient. Source: patient Medical history: Reports: arthritis, myocardial infarction, osteoporosis Surgical history: Reports: other Psychiatric history: Reports: no psych history - Social History Smoking Status: Unknown if ever smoked Smokeless Tobacco Status: No Alcohol use: Reports: none Drug use: Reports: none Physical Exam General appearance: NAD, conversant Eyes: anicteric sclerae, moist conjunctivae; PERRL HENT: Atraumatic; oropharynx clear with moist mucous membranes and no mucosal ulcerations Neck: Normal inspection; Trachea midline; FROM, supple Lungs: CTA, with normal respiratory effort and no intercostal retractions CV: RRR, no MRGs Abdomen: Soft, non-tender; no rebound or gaurding Musculoskeletal/extremities: Left lower extremity with obvious deformity and shortening as well as internal rotation of the leg. Dorsalis pedis pulse +2 and marked. Sensation intact. Compartments soft. Skin: Normal temperature; no rash, ulcers or lesions Psych: Appropriate mood and affect Neuro: alert and oriented to person, place and time - General Limitations: no limitations General appearance: alert, in no apparent distress Course - Consultations Consultation #1: Discussed with Dr. Bryant who requests an x-ray of the femur for surgical planning. Requests admission to the hospital service. He will evaluate the CT and give me a call back. Consultation #2: Discussed with the hospitalist, Dr. GALVAN, the patient is accepted for admission. Vital Signs Temperature 98.3 F 05/21/17 19:19 Pulse Rate 77 05/21/17 19:19 Respiratory Rate 15 05/21/17 19:19 Blood Pressure 214/94 05/21/17 19:19 O2 Sat by Pulse Oximetry 100 05/21/17 19:19 Temperature 97.5 F L 05/22/17 00:50 Pulse Rate 71 05/22/17 00:50 Respiratory Rate 18 05/22/17 00:50 Blood Pressure 177/59 05/22/17 00:50 O2 Sat by Pulse Oximetry 99 05/22/17 00:50 Oxygen Delivery Oxygen Delivery Room Air Extremity Injury, Lower - Medical Records Medical records reviewed: Yes I reviewed the patient's medical records. - Lab Data Lab results reviewed: Yes I reviewed the patient's lab results. Result diagrams: 05/21/17 19:40 05/21/17 19:40 Lab Results 05/21/17 05/21/17 05/21/17 Range/Units 19:40 19:40 19:40 WBC 10.9 (4.3-11.1) K/mcL RBC 3.10 L (3.82-4.97) M/mcL Hgb 9.9 L (11.5-15.4) g/dL Hct 31.5 L (35.3-44.9) % MCV 101.6 H (83.0-100.0) fL MCH 31.9 (28.0-33.3) pg MCHC 31.4 L (31.6-35.5) g/dL RDW 14.8 H (11.5-14.5) % Plt Count 230 (140-400) K/mcL MPV 10.9 (9.4-12.4) fL Immature Gran % 0.5 (0-4) % Seg Neutrophils % 62.6 % Lymphocytes % 28.0 % Monocytes % 5.9 % Eosinophils % 2.8 % Basophils % 0.2 % Neutrophils # 6.8 (1.6-8.9) K/mcL Lymphocytes # 3.1 (0.6-4.6) K/mcL Monocytes # 0.6 (0.0-1.3) K/mcL Eosinophils # 0.3 (0.0-0.6) K/mcL Basophils # 0.0 (0.0-0.2) K/mcL PT 10.3 (9.4-12.1) Seconds INR 1.0 Sodium 138 (136-145) mEq/L Potassium 3.7 (3.5-4.5) mEq/L Chloride 109 (98-109) mEq/L Carbon Dioxide 24 (19-29) mEq/L BUN 22 H (7-20) mg/dL Creatinine 0.67 (0.57-1.11) mg/dL Est GFR ( Amer) > 60 (> 60) Est GFR (Non-Af Amer) > 60 (> 60) BUN/Creatinine Ratio 33 H (6-26) Glucose 78 (70-99) mg/dL Calculated Osmolality 288 (280-300) Calcium 7.1 L (8.6-10.8) mg/dL - Radiology Data Radiology results reviewed: Yes I reviewed the patient's radiology results. - EKG Data EKG attestation: Yes I reviewed and interpreted this EKG. EKG results narrative: EKG shows sinus rhythm with ventricular rate of 73 bpm. W[place] 177. QRS 101. QTC 393. No significant ST elevation or depression. No previous EKG for comparison. Attestation Statement - Attestation Attestation: I, William Avery, examined this patient and my medical decision-making was reviewed with the ELECTRICAL SYSTEMS DRAFTER/PA/Advanced Practice Nurse/Resident Physician. I agree with the documented findings, disposition and treatment plan as described except to the extent set forth below. 82-year-old female presents with concerns of right leg pain. Patient had a mechanical fall while in the kitchen. She states that she has a history of problems with her balance. Patient fell striking the left lower extremity on the ground. Patient denies hitting her head or having loss of consciousness. No changes in her medications. On physical exam the patient has obvious deformity to the left lower extremity. She is neurovascularly intact in the bilateral lower extremities palpable pulses in the bilateral dorsalis pedis. CT shows comminuted displaced femur fracture. Resident spoke with Dr. Lema who is comfortable taking the patient for further care and evaluation. Patient has seen Dr. Tenorio for a shoulder and Dr. Preciado for a left hand surgery in the past which was addressed with Dr. Bryant. Resident also discussed other treatment options such as traction with Dr. Bryant. Patient's pain was controlled with IV pain medications. She feels comfortable to be admitted to the hospital for further care and evaluation and likely surgery of the left femur in the a.m.
[2017-05-21] MEDS ORDERED: Naloxone 0.4 MG/ML INJ IVP PRN (22:32)
[2017-05-21] MEDS ORDERED: traMADol 50 MG TABLET PO PRN (22:38)
[2017-05-21] MEDS ORDERED: Nitroglycerin 0.4 MG TAB.SUBL SL PRN (22:38)
[2017-05-21] MEDS ORDERED: Sennosides 8.6 MG TABLET PO PRN (22:38)
--- NOTE | 2017-05-21 23:05 | Internal Med History&Physical ---
Date of Encounter: 05/21/17 Time of Encounter: 23:05 Assessment and Plan (1) Femur fracture, left Current visit: Yes Status: Acute consult ortho. NPO after midnight. IV morphine, PO narcs for pain control. LR IVF overnight Qualifiers: Encounter type: initial encounter Femur location: unspecified portion of femur Fracture type: closed Fracture morphology: unspecified fracture morphology Qualified Code(s): S72.92XA - Unspecified fracture of left femur, initial encounter for closed fracture (2) Coronary artery disease Current visit: No Status: Chronic continue cardiac meds, monitor. Stable. No acute cardiac issues noted at current Qualifiers: Coronary Disease-Associated Artery/Lesion type: [place] artery [place] vs. transplanted heart: [place] heart Associated angina: without angina Qualified Code(s): I25.10 - Atherosclerotic heart disease of [place] coronary artery without angina pectoris (3) Hypothyroid Current visit: Yes Status: Acute continue thyroid meds Qualifiers: Qualified Code(s): E03.9 - Hypothyroidism, unspecified Internal Medicine - H&P: HPI Chief complaint: left leg pain Admitted From: Home Plans for Post Hospital Care: Home History of present illness: Ms. Mack is a 82 year old female history of SD 5 years ago status post stent placement, mesenteric ischemia, a wrist fracture on the left status post fixation in January 2017 who presents with a fair in the kitchen while peeling potatoes this afternoon leading to a left femur fracture. At baseline she uses a walker , lives alone and has a medical alert bracelet. Her Dtr lives in the same area as her. She fell after slipping on potato skins and stumbled around. Pain in left leg, worse with movement, improve with IV pain med. Past Med Surg Social Fam HX - Past Medical History Medical history: arthritis, myocardial infarction, osteoporosis Psychiatric history: no psych history - Past Surgical History Surgical History: non-contributory, other (l;eft wrist fracture status post fixation 2016) - Social History Smoking Status: Unknown if ever smoked Smokeless Tobacco Status: No Alcohol use: none Drug use: none - Family History Father Adopted: No Family Member Ethnicity: Non- Living Status: Hx Family Cardiac Disorders: Yes Hx Family Respiratory Disorders: No Hx Family Cancer: No Hx Family GI Disorders: No Hx Family Endocrine Disorder: No Hx Family Neuromuscular Disorders: No Hx Family Neurologic Disorders: No Hx Family HEENT Disorders: No Hx Family Autoimmune Disorders: No Internal Medicine - H&P: Meds Aspirin 81 mg PO DAILY 10/31/15 [History] Calcium Carbonate [Calcium] 1,200 mg PO DAILY 10/31/15 [History] Citalopram Hydrobromide [Celexa] 10 mg PO DAILY 10/31/15 [History] Cyclosporine [Restasis] 1 drop OP BID 10/31/15 [History] Levothyroxine [Synthroid] 50 mcg PO DAILY 10/31/15 [History] Nitroglycerin [Nitrostat] 0.4 mg SL AD PRN 10/31/15 [History] Sennosides [Senna] 8.6 mg PO TID PRN 10/31/15 [History] Zoledronic Acid (Reclast) [Reclast Premix 5 MG/100 ML] 5 mg IV [id number] [History] Atorvastatin [Lipitor] 40 mg PO HS 01/31/17 [History] Omeprazole 20 mg PO BID 01/31/17 [History] Tramadol HCl [Ultram] 50 - 100 mg PO TID PRN 01/31/17 [History] Gabapentin [Neurontin] 300 mg PO TID 05/21/17 [History] Meloxicam [Mobic] 15 mg PO DAILY 05/21/17 [History] Allergies dicyclomine [From Bentyl] Allergy (Verified 05/21/17 21:42) Hives Sulfa (Sulfonamide Antibiotics) Allergy (Verified 05/21/17 21:42) Hives All Systems PM: A 10-system review of systems was performed and is negative for pertinent findings except as documented above in the HPI. Review of systems: ROS 14 point review of systems reviewed. Pertinent positive or negative as per HPI or otherwise reviewed as negative - Constitutional Vitals: Temp Pulse Resp BP Pulse Ox 98.3 F 71 18 181/109 100 05/21/17 19:19 05/21/17 21:31 05/21/17 22:47 05/21/17 22:47 05/21/17 21:31 Exam: General - AAO x 3 Psych - Appropriate affect/speech. No agitation Eyes - SARAH. Eye lids intact. No scleral icterus ENT - Oral mucosa pink, dentition intact. External ear clear/dry/intact. No thyromegaly Lymphatics - No cervical/inguinal lympadenopathy Neuro - No gross central neuro deficits with intact CN 2-12 exam Heart - Sinus. RRR. S1 and S2 present. No added HS/murmurs appreciated. No elevated JVD appreciated. No calf swellings/erythema Lung - Adequate air entry b/l, No crackes/wheezes appreciated GI - Soft, non-tender. No hepatosplenomegaly/ascities. BS+ - No CVA/suprapubic tenderness or palpable bladder distension MSK - pain along left LE with decreased ROM Internal Med - H&P Results - Labs CBC & Chem 7: 05/21/17 19:40 05/21/17 19:40
[2017-05-21] MEDS: Ringers Solution, Lactated 1,000 ML IVC SCH (23:51)
[2017-05-21] MEDS: *HR* Morphine 2 MG/ML SYRINGE IVP PRN (23:52)
[2017-05-22] MEDS: *HR* HYDROcodone/Acet 5/325 mg TABLET PO PRN ×2 (00:58→05:37)
[2017-05-22] MEDS ORDERED: Zoledronic Acid (Reclast) 5 MG/100 ML INFUS..BTL IV SCH (01:15)
[2017-05-22 05:04] LABS: Basophils % 0.1 %; Eosinophils # 0.3 K/mcL (0.0-0.6); Eosinophils % 3.7 %; Hematocrit 27.1 % (35.3-44.9); Hemoglobin 8.5 g/dL (11.5-15.4); Immature Granulocytes % 0.7 % (0-4); Lymphocytes # 1.2 K/mcL (0.6-4.6); Lymphocytes % 14.5 %; Mean Corpuscular HGB Conc 31.4 g/dL (31.6-35.5); Mean Corpuscular Volume 101.9 fL (83.0-100.0); Mean Platelet Volume 10.5 fL (9.4-12.4); Monocytes # 0.5 K/mcL (0.0-1.3); Monocytes % 5.9 %; Neutrophils # 6.1 K/mcL (1.6-8.9); Platelet Count 192 K/mcL (140-400); Red Blood Count 2.66 M/mcL (3.82-4.97); Red Cell Distribution Width 14.7 % (11.5-14.5); Segmented Neutrophils % 75.1 %
[2017-05-22 05:18] LABS: BUN/Creatinine Ratio 30 (6-26); Blood Urea Nitrogen 23 mg/dL (7-20); Carbon Dioxide 30 mEq/L (19-29); Chloride 103 mEq/L (98-109); Glucose 121 mg/dL (70-99); Osmolality,Calculated 289 (280-300); Potassium 4.2 mEq/L (3.5-4.5); Sodium 137 mEq/L (136-145); eGFR For African Americans > 60 (> 60); eGFR For Non-African Americans > 60 (> 60)
[2017-05-22 05:23] LABS: Calcium 8.3 mg/dL (8.6-10.8)
[2017-05-22] MEDS ORDERED: *HR* Enoxaparin 40 MG/0.4 ML SYRINGE SQ SCH (06:00)
--- NOTE | 2017-05-22 07:36 | Orthopedic Consult Note ---
Date of Encounter: 05/22/17 Time of Encounter: 07:32 History of Present Illness Chief complaint: Left leg pain HPI: Ms. Mack is a 82 year old female sustained a mechanical fall in her home yesterday. She was peeling potatoes when the skins fell on the floor and she slid on them. She ultimately ended up falling and was unable to get up. She had a life alert system and squad was called. Patient was brought to the emergency room where extensive workup revealed a left femur fracture. She is admitted for further management. Patient denies neurovascular complaints. She denies any other acute injuries. For complete history and physical data please refer to the formal medical chart. Pertinent orthopedic examination reveals the left lower extremity held shortened internally rotated with obvious deformity of the left thigh. There is marked amount of swelling within the thigh itself. Distal neurosensory exam is intact. Multiple CT scans were performed and these verify the patient in fact has a significant femur fracture. The femur x-ray reveals a displaced relatively oblique fracture of the mid to proximal third of the shaft of the femur. There is some mild comminution noted extending proximally. Laboratory data includes a hemoglobin has dropped to 8.5. Platelets are normal. Impression: Left proximal femoral diaphyseal fracture Recommendation: We will proceed with intramedullary nailing of this left femur fracture later today when operating time is available. I discussed the management of this fracture with the patient including the surgical treatment with intramedullary nailing. We discussed potential risks and complications including but not limited to bleeding, infection, nerve injury, blood clots, stiffness, malunion, nonunion and rotational or leg length deformities. Patient understands and agrees with surgical treatment. She signed informed consent. We will proceed later today when operating time is available. Thank you very much for allowing me to see and care for Mrs. Mack. Sincerely, Jesse Bryant,DO Past Med Surg Social Fam HX - Past Medical History Medical history: arthritis, myocardial infarction, osteoporosis Psychiatric history: no psych history - Past Surgical History Surgical History: other - Social History Smoking Status: Unknown if ever smoked Smokeless Tobacco Status: No Alcohol use: none Drug use: none - Family History Father Adopted: [place]: ana maría panel wirer Family Member Ethnicity: Non- Living Status: Age at : 69 Cause of : mi Hx Family Cardiac Disorders: Yes (mi) Hx Family Respiratory Disorders: No Hx Family Cancer: No Hx Family GI Disorders: No Hx Family Endocrine Disorder: No Hx Family Neuromuscular Disorders: No Hx Family Neurologic Disorders: No Hx Family HEENT Disorders: No Hx Family Autoimmune Disorders: No Medications and Allergies Aspirin 81 mg PO DAILY 10/31/15 [History] Calcium Carbonate [Calcium] 1,200 mg PO DAILY 10/31/15 [History] Citalopram Hydrobromide [Celexa] 10 mg PO DAILY 10/31/15 [History] Cyclosporine [Restasis] 1 drop OP BID 10/31/15 [History] Levothyroxine [Synthroid] 50 mcg PO DAILY 10/31/15 [History] Nitroglycerin [Nitrostat] 0.4 mg SL AD PRN 10/31/15 [History] Sennosides [Senna] 8.6 mg PO TID PRN 10/31/15 [History] Zoledronic Acid (Reclast) [Reclast Premix 5 MG/100 ML] 5 mg IV [id number] [History] Atorvastatin [Lipitor] 40 mg PO HS 01/31/17 [History] Omeprazole 20 mg PO BID 01/31/17 [History] Tramadol HCl [Ultram] 50 - 100 mg PO TID PRN 01/31/17 [History] Gabapentin [Neurontin] 300 mg PO TID 05/21/17 [History] Meloxicam [Mobic] 15 mg PO DAILY 05/21/17 [History] Allergies dicyclomine [From Bentyl] Allergy (Verified 05/21/17 21:42) Hives Sulfa (Sulfonamide Antibiotics) Allergy (Verified 05/21/17 21:42) Hives All Systems Reviewed: A 10-system review of systems was performed and is negative for pertinent findings except as documented above in the HPI. Physical Exam - Constitutional Vitals: Temp Pulse Resp BP Pulse Ox 98.1 F 72 16 136/66 100 05/22/17 06:40 05/22/17 06:40 05/22/17 06:40 05/22/17 06:40 05/22/17 06:40 Results - Labs Result Diagrams: 05/22/17 04:51 05/22/17 04:51 Labs: Abnormal lab results RBC 2.66 M/mcL (3.82-4.97) L 05/22/17 04:51 Hgb 8.5 g/dL (11.5-15.4) L 05/22/17 04:51 Hct 27.1 % (35.3-44.9) L 05/22/17 04:51 MCV 101.9 fL (83.0-100.0) H 05/22/17 04:51 MCHC 31.4 g/dL (31.6-35.5) L 05/22/17 04:51 RDW 14.7 % (11.5-14.5) H 05/22/17 04:51 Carbon Dioxide 30 mEq/L (19-29) H 05/22/17 04:51 BUN 23 mg/dL (7-20) H 05/22/17 04:51 BUN/Creatinine Ratio 30 (6-26) H 05/22/17 04:51 Glucose 121 mg/dL (70-99) H 05/22/17 04:51 POC Glucose 107 (58-89) H 05/22/17 06:58 Calcium 8.3 mg/dL (8.6-10.8) L D 05/22/17 04:51 H & H 05/22/17 Range/Units 04:51 Hgb 8.5 L (11.5-15.4) g/dL Hct 27.1 L (35.3-44.9) % All other labs normal. Consult Discharge Plan - Plan Referrals: Dayana Ellis MD [Primary Care Provider] -
[2017-05-22] MEDS: Gabapentin 300 MG CAPSULE PO SCH ×3 (08:09→21:33)
[2017-05-22] MEDS: (Cyclosporine [Restasis] 1 DROP) OP SCH ×2 (08:21→21:34)
[2017-05-22] MEDS ORDERED: Aspirin 81 MG TAB.CHEW PO SCH (09:00)
--- NOTE | 2017-05-22 09:40 | Internal Med Progress Note ---
Date of Encounter: 05/22/17 Time of Encounter: 08:10 - Assessment and plan (1) Femur fracture, left Current Visit: Yes Status: Acute Assessment and plan: Orthopedic surgery consultation appreciated patient scheduled for repair later today (05/22/17) pain control PT/OT eval after surgical intervention Qualifiers: Encounter type: initial encounter Femur location: unspecified portion of femur Fracture type: closed Fracture morphology: unspecified fracture morphology Qualified Code(s): S72.92XA - Unspecified fracture of left femur, initial encounter for closed fracture (2) Coronary artery disease Current Visit: No Status: Chronic Assessment and plan: no signs of angina present at this time continue home medications Qualifiers: Coronary Disease-Associated Artery/Lesion type: [place] artery [place] vs. transplanted heart: [place] heart Associated angina: without angina Qualified Code(s): I25.10 - Atherosclerotic heart disease of [place] coronary artery without angina pectoris (3) Essential hypertension Current Visit: No Status: Chronic Assessment and plan: BP within acceptable range continue home medications (4) Hypothyroid Current Visit: Yes Status: Chronic Assessment and plan: continue home medications Qualifiers: Hypothyroidism type: unspecified Qualified Code(s): E03.9 - Hypothyroidism , unspecified (5) DVT prophylaxis Current Visit: No Status: Acute Assessment and plan: SCD until surgical intervention Lovenox SQ after surgery - Subjective Interval history: Patient seen and examined at bedside. Resting in bed and states the pain is appropriately controlled with the current pain medications. Scheduled for surgery later today. - Constitutional Vitals: Temp Pulse Resp BP Pulse Ox 98.1 F 72 16 136/66 100 05/22/17 06:40 05/22/17 06:40 05/22/17 06:40 05/22/17 06:40 05/22/17 06:40 General appearance: Present: cooperative, A&O X 3, no acute distress, answers questions appropriately - Head Head exam: Present: atraumatic, normocephalic - Eye Eye exam: Present: conjuntiva pink, sclera anicteric - Respiratory Respiratory exam: Present: CTAB. Absent: accessory muscle use, rales, rhonchi, wheezes - Cardiovascular Cardiovascular exam: Present: RRR, +S1, +S2. Absent: diastolic murmur, gallop, rubs, systolic murmur - GI/Abdominal GI/Abdominal exam: Present: normal bowel sounds, soft, no peritoneal signs. Absent: distended, tenderness - Extremities Exam Extremities exam: Present: warm, radial pulses palpable and symetrical. Absent : calf tenderness - Neurological Exam Neurological exam: Present: alert, oriented X3 - Psychiatric Psychiatric exam: Present: normal affect, normal mood Internal Medicine: Result - Labs CBC & Chem 7: 05/22/17 04:51 05/22/17 04:51 Labs: Short CBC 05/22/17 Range/Units 04:51 WBC 8.1 (4.3-11.1) K/mcL Hgb 8.5 L (11.5-15.4) g/dL Hct 27.1 L (35.3-44.9) % Plt Count 192 (140-400) K/mcL Neutrophils # 6.1 (1.6-8.9) K/mcL BMP 05/22/17 04:51 Sodium 137 Potassium 4.2 Chloride 103 Carbon Dioxide 30 H BUN 23 H Creatinine 0.76 Glucose 121 H Calcium 8.3 L D - ABG Interpretation ABG results: PT/INR, D-dimer PT 10.3 Seconds (9.4-12.1) 05/21/17 19:40 - VTE Documentation of Mechanical Device: Intermittent pneumatic compression device Consult Discharge Plan - Plan Referrals: Dayana Ellis MD [Primary Care Provider] -
[2017-05-22] MEDS: Ringers Solution, Lactated 1,000 ML IVC SCH ×2 (11:42→21:34)
[2017-05-22] MEDS: *HR* Morphine 2 MG/ML SYRINGE IVP PRN ×3 (11:42→21:40)
--- NOTE | 2017-05-22 14:06 | Electrocardiograph Report ---
[address] [place], [place] [address] Test Date: 2017-05-21 Pat Name: Joaquina [facility] Department: [facility] Room: [facility] Gender: F Health Promotion Manager: QUINN : 1935 Requested By: [place] Order Number: [id number] Reading MD: Dell Patel MD Measurements Intervals [place] Rate: 73 P: 57 TN: 177 QRS: 55 QRSD: 101 T: 70 QT: 367 QTc: 393 Interpretive Statements SINUS RHYTHM WITH SINUS ARRHYTHMIA Electronically Signed On 05-22-2017 14:05:21 EDT by Dell Patel MD
--- NOTE | 2017-05-22 20:38 | Anesthesia Evaluation PreOp ---
Date of Encounter: 05/22/17 Time of Encounter: 20:36 - Past History Planned Operation: L femur IM Nail Cardiac History: [place] (2012), HTN, Hyperlipidemia, Cardiac Stent (rca) Pulmonary History: Denies Any Significant HX REAL ESTATE JOB TITLES History: Other (doppler carotid, critical l ICA stenois, mod r ICA stenosis) Other Medical History: Thyroid, GERD, Other (osteoporosis) Anesthesia History: No Prior Anesthetic Complications, Past Anesthesia (l wrist orif) Alcohol Use: none Drug use: none Medications and Allergies Aspirin 81 mg PO DAILY 10/31/15 [History] Calcium Carbonate [Calcium] 1,200 mg PO DAILY 10/31/15 [History] Citalopram Hydrobromide [Celexa] 10 mg PO DAILY 10/31/15 [History] Cyclosporine [Restasis] 1 drop OP BID 10/31/15 [History] Levothyroxine [Synthroid] 50 mcg PO DAILY 10/31/15 [History] Nitroglycerin [Nitrostat] 0.4 mg SL AD PRN 10/31/15 [History] Sennosides [Senna] 8.6 mg PO TID PRN 10/31/15 [History] Zoledronic Acid (Reclast) [Reclast Premix 5 MG/100 ML] 5 mg IV [id number] [History] Atorvastatin [Lipitor] 40 mg PO HS 01/31/17 [History] Omeprazole 20 mg PO BID 01/31/17 [History] Tramadol HCl [Ultram] 50 - 100 mg PO TID PRN 01/31/17 [History] Gabapentin [Neurontin] 300 mg PO TID 05/21/17 [History] Meloxicam [Mobic] 15 mg PO DAILY 05/21/17 [History] Allergies dicyclomine [From Bentyl] Allergy (Verified 05/21/17 21:42) Hives Sulfa (Sulfonamide Antibiotics) Allergy (Verified 05/21/17 21:42) Hives - Meds/Allergy Pre-op Review Medications Reviewed: Yes Allergies Reviewed: Yes Beta Blockers on Current Med List: No Anesthesia Results - Labs 05/22/17 04:51 05/22/17 04:51 - Imaging EKG: report reviewed (sr) Anesthesia Exam Vital Signs/O2 Sat/Glucose, Most Current Temp Pulse Resp BP Pulse Ox 05/22/17 20:00 99.3 F 78 18 169/67 99 Height: 1.52 Weight: 57 NPO (# of Hours): >8 Anesthesia Assess/Plan ASA Score: 3 Modified [place] Scale for Level of Consciousness: Cooperative, oriented, and tranquil Anesthetic Plan: General Monitoring Plan: Standard Monitors Recovery Plan: PACU
[2017-05-22] MEDS ORDERED: Sennosides 8.6 MG TABLET PO SCH (21:00)
--- NOTE | 2017-05-22 21:11 | Orthopedics Progress Note ---
Date of Encounter: 05/22/17 Time of Encounter: 21:09 Subjective Principal diagnosis: Left femur fracture Interval history: 05/22/2017. 2110 hrs. patient was scheduled for surgery today, unfortunately the operating room is busy with an unknown potential start time for our case. I discussed with the patient and family that I would recommend we cancel the case for tonight and schedule her for tomorrow. I have discussed with the operating room staff and feel that we should be able to start in the early afternoon at the latest unless some other concerns arise. Patient and family understand and agree. We will give her dinner tonight. Nothing by mouth after midnight for surgery tomorrow. Objective Vital signs: Vital Signs Temp Pulse Resp BP Pulse Ox 05/22/17 20:00 99.3 F 78 18 169/67 99 05/22/17 16:00 98.5 F 80 18 167/70 97 05/22/17 11:22 97.9 F 84 16 148/66 99 05/22/17 06:40 98.1 F 72 16 136/66 100 05/22/17 03:47 97.9 F 73 17 113/65 97 05/22/17 00:50 97.5 F L 71 18 177/59 99 05/21/17 22:47 18 181/109 Intake and Output 05/22/17 05/22/17 05/22/17 07:59 15:59 23:59 Intake Total 1000 / 1000 Output Total 800 / 800 Balance 200 / 200 Intake: IV Fluids 1000 / 1000 Lactated Ringers 1,000 ML 1000 / 1000 @ 100 mls/hr IVC .Q10H SRAVANTHI Rx#:[id number] Output: Catheter 800 / 800 Other: Blood Glucose* 107 - Labs CBC & BMP: 05/22/17 04:51 05/22/17 04:51 Labs: Abnormal lab results RBC 2.66 M/mcL (3.82-4.97) L 05/22/17 04:51 Hgb 8.5 g/dL (11.5-15.4) L 05/22/17 04:51 Hct 27.1 % (35.3-44.9) L 05/22/17 04:51 MCV 101.9 fL (83.0-100.0) H 05/22/17 04:51 MCHC 31.4 g/dL (31.6-35.5) L 05/22/17 04:51 RDW 14.7 % (11.5-14.5) H 05/22/17 04:51 Carbon Dioxide 30 mEq/L (19-29) H 05/22/17 04:51 BUN 23 mg/dL (7-20) H 05/22/17 04:51 BUN/Creatinine Ratio 30 (6-26) H 05/22/17 04:51 Glucose 121 mg/dL (70-99) H 05/22/17 04:51 POC Glucose 107 (58-89) H 05/22/17 06:58 Calcium 8.3 mg/dL (8.6-10.8) L D 05/22/17 04:51 - VTE Documentation of Mechanical Device: Intermittent pneumatic compression device Consult Discharge Plan - Plan Referrals: Dayana Ellis MD [Primary Care Provider] -
[2017-05-23 02:07] LABS: Basophils % 0.2 %; Eosinophils # 0.2 K/mcL (0.0-0.6); Eosinophils % 4.1 %; Hematocrit 22.6 % (35.3-44.9); Hemoglobin 7.2 g/dL (11.5-15.4); Immature Granulocytes % 0.2 % (0-4); Lymphocytes # 1.3 K/mcL (0.6-4.6); Lymphocytes % 22.5 %; Mean Corpuscular HGB Conc 31.9 g/dL (31.6-35.5); Mean Corpuscular Hemoglobin 32.1 pg (28.0-33.3); Mean Corpuscular Volume 100.9 fL (83.0-100.0); Mean Platelet Volume 10.6 fL (9.4-12.4); Monocytes # 0.3 K/mcL (0.0-1.3); Monocytes % 5.4 %; Platelet Count 168 K/mcL (140-400); Red Blood Count 2.24 M/mcL (3.82-4.97); Red Cell Distribution Width 14.6 % (11.5-14.5); Segmented Neutrophils % 67.6 %
[2017-05-23 02:20] LABS: BUN/Creatinine Ratio 23 (6-26); Blood Urea Nitrogen 19 mg/dL (7-20); Calcium 8.1 mg/dL (8.6-10.8); Carbon Dioxide 31 mEq/L (19-29); Chloride 104 mEq/L (98-109); Glucose 109 mg/dL (70-99); Magnesium 1.6 mg/dL (1.6-2.6); Osmolality,Calculated 287 (280-300); Phosphorous 4.4 mg/dL (2.3-4.7); Potassium 4.5 mEq/L (3.5-4.5); Sodium 137 mEq/L (136-145); eGFR For African Americans > 60 (> 60); eGFR For Non-African Americans > 60 (> 60)
[2017-05-23] MEDS: *HR* Morphine 2 MG/ML SYRINGE IVP PRN (06:55)
[2017-05-23] MEDS: Ringers Solution, Lactated 1,000 ML IVC SCH (08:03)
[2017-05-23] MEDS: Gabapentin 300 MG CAPSULE PO SCH ×2 (08:09→20:27)
[2017-05-23] MEDS: (Cyclosporine [Restasis] 1 DROP) OP SCH (08:10)
[2017-05-23] MEDS ORDERED: 0.9 % Sodium Chloride 250 ML IVC SCH ×2 (08:15→17:53)
--- NOTE | 2017-05-23 08:59 | Internal Med Progress Note ---
Date of Encounter: 05/23/17 Time of Encounter: 08:57 - Assessment and plan (1) Anemia Current Visit: Yes Status: Acute Assessment and plan: Noted to have drop in H&H no acute bleeding reported will obtain stool occult transfuse 2 units prior to surgery will closely monitor f/u iron studies ( to be done prior to transfusion) Qualifiers: Anemia type: unspecified type Qualified Code(s): D64.9 - Anemia, unspecified (2) Femur fracture, left Current Visit: Yes Status: Acute Assessment and plan: Orthopedic surgery consultation appreciated patient scheduled for repair later today (05/23/17) pain control PT/OT eval after surgical intervention Qualifiers: Encounter type: initial encounter Femur location: unspecified portion of femur Fracture type: closed Fracture morphology: unspecified fracture morphology Qualified Code(s): S72.92XA - Unspecified fracture of left femur, initial encounter for closed fracture (3) Coronary artery disease Current Visit: No Status: Chronic Assessment and plan: no signs of angina present at this time continue home medications Qualifiers: Coronary Disease-Associated Artery/Lesion type: [place] artery [place] vs. transplanted heart: [place] heart Associated angina: without angina Qualified Code(s): I25.10 - Atherosclerotic heart disease of [place] coronary artery without angina pectoris (4) Essential hypertension Current Visit: No Status: Chronic Assessment and plan: BP within acceptable range continue home medications (5) Hypothyroid Current Visit: Yes Status: Chronic Assessment and plan: continue home medications Qualifiers: Hypothyroidism type: unspecified Qualified Code(s): E03.9 - Hypothyroidism , unspecified (6) DVT prophylaxis Current Visit: No Status: Acute Assessment and plan: SCD until surgical intervention Lovenox SQ after surgery - Subjective Interval history: Patient seen and examined at bedside. Resting in bed and states the pain is appropriately controlled with the current pain medications. Scheduled for surgery later today (05/23/17). Surgery was cancelled yesterday due to scheduling issues. No overnight issues. - Constitutional Vitals: Temp Pulse Resp BP Pulse Ox 98.5 F 86 16 128/67 95 05/23/17 06:34 05/23/17 06:34 05/23/17 06:34 05/23/17 06:34 05/23/17 06:34 General appearance: Present: cooperative, A&O X 3, no acute distress, answers questions appropriately - Head Head exam: Present: atraumatic, normocephalic - Eye Eye exam: Present: conjuntiva pink, sclera anicteric - Respiratory Respiratory exam: Present: CTAB. Absent: respiratory distress, wheezes - Cardiovascular Cardiovascular exam: Present: RRR, +S1, +S2 - GI/Abdominal GI/Abdominal exam: Present: normal bowel sounds, soft, no peritoneal signs. Absent: distended, tenderness - Extremities Exam Extremities exam: Present: tenderness (left hip), warm, radial pulses palpable and symetrical. Absent: calf tenderness, cyanotic, pedal edema - Neurological Exam Neurological exam: Present: alert, oriented X3 - Psychiatric Psychiatric exam: Present: normal affect, normal mood Internal Medicine: Result - Labs CBC & Chem 7: 05/23/17 01:37 05/23/17 01:37 Labs: Short CBC 05/23/17 Range/Units 01:37 WBC 5.9 (4.3-11.1) K/mcL Hgb 7.2 L (11.5-15.4) g/dL Hct 22.6 L (35.3-44.9) % Plt Count 168 (140-400) K/mcL Neutrophils # 4.0 (1.6-8.9) K/mcL BMP 05/23/17 01:37 Sodium 137 Potassium 4.5 Chloride 104 Carbon Dioxide 31 H BUN 19 Creatinine 0.81 Glucose 109 H Calcium 8.1 L - ABG Interpretation ABG results: PT/INR, D-dimer PT 10.3 Seconds (9.4-12.1) 05/21/17 19:40 - VTE Documentation of Mechanical Device: Intermittent pneumatic compression device Consult Discharge Plan - Plan Referrals: Dayana Ellis MD [Primary Care Provider] -
[2017-05-23 09:43] LABS: % Iron Saturation 12 % (15-50); Iron 30 mcg/dL (50-170); Transferrin 176 mg/dL (180-382)
[2017-05-23 10:02] LABS: Ferritin 271 ng/ml (5-204)
[2017-05-23] MEDS ORDERED: *HR* FentaNYL (PF) 100 MCG/2 ML VIAL ONE ×2 (12:28→13:45)
[2017-05-23] MEDS ORDERED: Ondansetron 4 MG/2 ML VIAL ONE (12:28)
[2017-05-23] MEDS ORDERED: *HR* Propofol 200 MG/20 ML VIAL IVP ONE (12:28)
[2017-05-23] MEDS ORDERED: Lidocaine -MPF 4% 5 ML AMPUL ONE (12:28)
[2017-05-23] MEDS ORDERED: Lidocaine -MPF 2% 2 ML VIAL ONE ×2 (12:28→12:38)
[2017-05-23] MEDS ORDERED: Dexamethasone 4 MG/ML VIAL ONE (12:28)
[2017-05-23] MEDS ORDERED: *HR* Succinylcholine 200 MG/10 ML VIAL IVP ONE (12:30)
[2017-05-23] MEDS ORDERED: Heparin 1,000 UNITS/500 mL NS 500 ML ONE (12:37)
[2017-05-23] MEDS ORDERED: ceFAZolin 2,000 MG in D5% in Water 100 ML IVPB ONE (13:00)
[2017-05-23] MEDS ORDERED: Ondansetron 4 MG/2 ML VIAL IVP ONE ×2 (13:48→17:53)
[2017-05-23] MEDS ORDERED: Dexamethasone 4 MG/ML VIAL IVP ONE ×2 (13:48→17:53)
[2017-05-23] MEDS ORDERED: *HR* Morphine 2 MG/ML SYRINGE IVP PRN ×3 (13:48→17:53)
[2017-05-23] MEDS ORDERED: *HR* Labetalol 20 MG/4 ML SYRINGE IVP PRN ×2 (13:48→17:53)
[2017-05-23] MEDS ORDERED: *HR* Morphine 10 MG/ML VIAL ONE (14:05)
--- NOTE | 2017-05-23 17:36 | Anesthesia Evaluation Post Op ---
Date of Encounter: 05/23/17 Time of Encounter: 17:35 - Vital Signs Vital Signs: Vital Signs/O2 Sat, Most Current Temp Pulse Resp BP Pulse Ox 98.3 F 70 16 160/55 100 05/23/17 17:28 05/23/17 17:28 05/23/17 17:28 05/23/17 17:28 05/23/17 17:28 - Lungs Lungs: Clear Ascult./Percussion - Airway Airway: Non-obstructed - Cardiovascular Regular Rate - Mental Status Mental Status: Alert & Oriented, Answers Appropriately - Pain Pain Scale: 4 (Morphine 2 mg) Pain Scale used: Numeric (1 - 10) - Nausea Vomiting Nausea Vomiting: Not Present - Hydration Hydration: Ice chips - Discharge PostOp Status: Transfer Patient to floor (VSS, awake, no anesthetic complications)
--- NOTE | 2017-05-23 17:48 | Anesthesia Evaluation Post Op ---
Date of Encounter: 05/23/17 Time of Encounter: 17:47 - Vital Signs Vital Signs: Vital Signs/O2 Sat, Most Current Temp Pulse Resp BP Pulse Ox 98.3 F 70 16 160/55 100 05/23/17 17:28 05/23/17 17:28 05/23/17 17:28 05/23/17 17:28 05/23/17 17:28 - Lungs Lungs: Clear Ascult./Percussion - Airway Airway: Non-obstructed - Cardiovascular Regular Rate - Mental Status Mental Status: Alert & Oriented, Answers Appropriately - Pain Pain Scale: 3 (dilaudid) Pain Scale used: Numeric (1 - 10) - Nausea Vomiting Nausea Vomiting: Not Present - Hydration Hydration: Ice chips - Discharge PostOp Status: Transfer Patient to floor (awake, VSS, no anesthetic complications)
[2017-05-23] MEDS ORDERED: traMADol 50 MG TABLET PO PRN (17:53)
[2017-05-23] MEDS ORDERED: Nitroglycerin 0.4 MG TAB.SUBL SL PRN (17:53)
[2017-05-23] MEDS ORDERED: Naloxone 0.4 MG/ML INJ IVP PRN (17:53)
[2017-05-23] MEDS ORDERED: Ringers Solution, Lactated 1,000 ML IVC SCH (17:53)
--- NOTE | 2017-05-23 18:48 | Operative Note ---
Date of procedure: 05/23/17 Pre-op diagnosis: Displaced fracture left proximal femoral diaphysis Post-op diagnosis: same Procedure: #1. Intramedullary nailing left femur #2. Fluoroscopic guidance for IM nailing left femur Implants: Synthes 12 mm x 360 mm x 130 degree angle TFNA, 85 mm x 11 mm TFNA helical blade and a 44 mm x 5.0 millimeter distal locking screw Complications: None Anesthesia: GETA Surgeon: Jesse Bryant Estimated blood loss (cc): 175 Specimen: None Condition: stable Disposition: PACU Procedure in Detail: Gross findings: Preoperative x-rays as well as a CT scan revealed a fracture of the proximal left femoral diaphysis below the level of the lesser trochanter. This showed some comminution of the proximal fragment. This was a relatively long oblique fracture. Intraoperative findings were as noted. The fracture was treated by placement of intramedullary nail. This was augmented with 2 cerclage wires about the oblique fracture line. In essence, an anatomic reduction was obtained and maintained with the trochanteric femoral nail and cerclage wiring. Multiplane fluoroscopy was used during the surgical procedure to verify that the fracture was well reduced and the implants were in excellent position. Procedure: Patient was taken the operating room and administered general anesthesia. Patient was then transferred to the [facility] fracture table. Left lower extremity was placed in longitudinal traction and the right lower extremity was positioned out of harm's way and a well leg [place]. At this time fluoroscopy was brought in and used to guide the initial reduction which was obtained with traction minor adduction and some external rotation. Once fracture was aligned into excellent position the leg was prepped and draped in normal standard fashion for surgery. Incision was made above the level of the greater trochanter. Dissection was carried to the septated his tissues at the level of the fascia maegan which was split. Entrance into the tip of the trochanter was obtained with a guidepin. The trochanter was then opened up with the large reaming device. At this time a ball-tipped guide jmaie was passed down the canal to the level of the fracture site. The wire was then passed distally to the knee. Position was verified to be well contained with fluoroscopy. At this time the location of the incision for the helical blade insertion was created and extended slightly distal. This was right about the level of the fracture site. This allowed entrance to the fracture site which was approach by splitting the fascia and the vastus lateralis and entering into the fracture hematoma. This was evacuated. The fracture was unable to be reduced and held in reduced position with a bone- holding clamp. Anatomic reduction was verified with fluoroscopy. At this time the canal was reamed with flexible reamers up to and including a size 13.5 mm. The selected nail was then placed on the insertion jig and passed over the guidewire partially into the canal. This was able to be passed to the fracture site and slightly past it. At this time to 18-gauge cerclage wires were passed about the fracture site 1 above and below the bone-holding clamp. These were secured in a bone-holding clamp was removed and the fracture reduction was maintained. This now allowed the nail to be passed distally and seated and to allow access for the helical blade guide. The guide was then placed and the guidepin was placed into a central position in the femoral head as verified with multiplanar fluoroscopy. This is now measured and an 85 mm helical blade was selected. Head and neck were reamed. Helical blade was then placed and impacted and seated into the femoral head and then locked from above. Position was verified with multiplanar fluoroscopy and in the insertion jig was removed independent attention was paid distally. At this time the distal locking screw was placed utilizing a freehand technique and fluoroscopic guidance. Once completed final fluoroscopic views were taken in multiple planes verifying fracture reduction and position of the implants to be excellent. At this time due to then irrigated and closed. The fracture site and incision was closed with #2 strata Fickes in the fascia maegan and then #2 Vicryl and #2 strata Fix. Subcutaneous tissue was closed with multiple 0 undyed Vicryl. Immediate subcutaneous tissues closed with 2-0 undyed Vicryl. Skin was then closed with running subcuticular incision stitch of 20 Stratte fix. Proximal incision was closed with 0 undyed Vicryl in the deep tissue 2-0 undyed Vicryl immediate subcutaneous tissue and skin approximation with 2/0 strata fix ,distal wound closed in a similar manner. All wounds then had skin glue applied. Once occlude hardened operative foam was applied and secured. Leg was then wrapped with Ramiro wraps. Patient was then transferred from the operating table hospital bed. Patient was now awakened from anesthesia extubated and transferred to the postanesthesia care unit in stable and satisfactory condition. All sponge and needle evidence for counts are correct. No specimens were sent for pathology.
[2017-05-23] MEDS: ceFAZolin 2,000 MG in D5% in Water 100 ML IVPB SCH (19:51)
[2017-05-23] MEDS: RESTASIS OP SCH (20:07)
[2017-05-23] MEDS: Sennosides 8.6 MG TABLET PO SCH (20:28)
[2017-05-24] MEDS: ceFAZolin 2,000 MG in D5% in Water 100 ML IVPB SCH (02:35)
[2017-05-24] MEDS: *HR* Enoxaparin 40 MG/0.4 ML SYRINGE SQ SCH (06:31)
[2017-05-24] MEDS: *HR* HYDROcodone/Acet 5/325 mg TABLET PO PRN ×4 (06:47→20:35)
[2017-05-24 07:32] LABS: BUN/Creatinine Ratio 24 (6-26); Blood Urea Nitrogen 20 mg/dL (7-20); Calcium 7.8 mg/dL (8.6-10.8); Carbon Dioxide 29 mEq/L (19-29); Chloride 104 mEq/L (98-109); Glucose 117 mg/dL (70-99); Magnesium 1.6 mg/dL (1.6-2.6); Osmolality,Calculated 288 (280-300); Phosphorous 3.3 mg/dL (2.3-4.7); Potassium 4.4 mEq/L (3.5-4.5); Sodium 137 mEq/L (136-145); eGFR For African Americans > 60 (> 60); eGFR For Non-African Americans > 60 (> 60)
[2017-05-24 07:46] LABS: Basophils % 0.1 %; Eosinophils % 0.2 %; Hematocrit 26.6 % (35.3-44.9); Immature Granulocytes % 0.3 % (0-4); Lymphocytes # 1.3 K/mcL (0.6-4.6); Lymphocytes % 14.2 %; Mean Corpuscular HGB Conc 33.8 g/dL (31.6-35.5); Mean Corpuscular Hemoglobin 31.7 pg (28.0-33.3); Mean Corpuscular Volume 93.7 fL (83.0-100.0); Mean Platelet Volume 10.9 fL (9.4-12.4); Monocytes # 0.5 K/mcL (0.0-1.3); Monocytes % 5.3 %; Neutrophils # 7.4 K/mcL (1.6-8.9); Platelet Count 129 K/mcL (140-400); Red Blood Count 2.84 M/mcL (3.82-4.97); Red Cell Distribution Width 17.2 % (11.5-14.5); Segmented Neutrophils % 79.9 %
[2017-05-24] MEDS: Gabapentin 300 MG CAPSULE PO SCH ×3 (08:29→20:36)
[2017-05-24] MEDS: RESTASIS OP SCH ×2 (08:30→20:37)
--- NOTE | 2017-05-24 08:57 | Internal Med Progress Note ---
Date of Encounter: 05/24/17 Time of Encounter: 08:55 - Assessment and plan (1) Anemia Current Visit: Yes Status: Acute Assessment and plan: S/P 2unit PRBC transfusion (05/23/17) Repeat H&H within acceptable range iron studies consistent with anemia of chronic disease will obtain stool occult will closely monitor Qualifiers: Anemia type: unspecified type Qualified Code(s): D64.9 - Anemia, unspecified (2) Femur fracture, left Current Visit: Yes Status: Acute Assessment and plan: Orthopedic surgery consultation appreciated s/p repair of displaced fracture of left proximal femoral diaphysis-POD #1 (05/23) pain control PT/OT evaluation social services director consultation for possible rehab placement Qualifiers: Encounter type: initial encounter Femur location: unspecified portion of femur Fracture type: closed Fracture morphology: unspecified fracture morphology Qualified Code(s): S72.92XA - Unspecified fracture of left femur, initial encounter for closed fracture (3) Coronary artery disease Current Visit: No Status: Chronic Assessment and plan: no signs of angina present at this time continue home medications Qualifiers: Coronary Disease-Associated Artery/Lesion type: [place] artery [place] vs. transplanted heart: [place] Associated angina: without angina Qualified Code(s): I25.10 - Atherosclerotic heart disease of [place] coronary artery without angina pectoris (4) Essential hypertension Current Visit: No Status: Chronic Assessment and plan: BP within acceptable range continue home medications (5) Hypothyroid Current Visit: Yes Status: Chronic Assessment and plan: continue home medications Qualifiers: Hypothyroidism type: unspecified Qualified Code(s): E03.9 - Hypothyroidism , unspecified (6) DVT prophylaxis Current Visit: No Status: Acute Assessment and plan: Lovenox SQ - Subjective Interval history: Patient seen and examined with family present at bedside. Pt sitting in bed, eating breakfast. Reports of being tired but pain controlled with current pain medications. s/p repair of displaced fracture of left proximal femoral diaphysis-POD #1 - Constitutional Vitals: Temp Pulse Resp BP Pulse Ox 98.3 F 68 16 128/54 95 05/24/17 06:53 05/24/17 06:53 05/24/17 06:53 05/24/17 06:53 05/24/17 06:53 General appearance: Present: cooperative, A&O X 3, no acute distress, answers questions appropriately - Head Head exam: Present: atraumatic, normocephalic - Eye Eye exam: Present: conjuntiva pink, sclera anicteric - Respiratory Respiratory exam: Present: CTAB. Absent: respiratory distress, wheezes - Cardiovascular Cardiovascular exam: Present: RRR, +S1, +S2. Absent: diastolic murmur, gallop, rubs, systolic murmur - GI/Abdominal GI/Abdominal exam: Present: normal bowel sounds, soft. Absent: distended, tenderness - Extremities Exam Extremities exam: Present: warm, radial pulses palpable and symetrical. Absent : calf tenderness - Neurological Exam Neurological exam: Present: alert, oriented X3 - Psychiatric Psychiatric exam: Present: normal affect, normal mood Internal Medicine: Result - Labs CBC & Chem 7: 05/24/17 07:10 05/24/17 07:10 Labs: Short CBC 05/24/17 Range/Units 07:10 WBC 9.3 D (4.3-11.1) K/mcL Hgb 9.0 L D (11.5-15.4) g/dL Hct 26.6 L (35.3-44.9) % Plt Count 129 L (140-400) K/mcL Neutrophils # 7.4 (1.6-8.9) K/mcL BMP 05/24/17 07:10 Sodium 137 Potassium 4.4 Chloride 104 Carbon Dioxide 29 BUN 20 Creatinine 0.82 Glucose 117 H Calcium 7.8 L - ABG Interpretation ABG results: PT/INR, D-dimer PT 10.3 Seconds (9.4-12.1) 05/21/17 19:40 - Impressions Impressions Fluoroscopy 05/23/17 00:00 IMPRESSION: Intraprocedural fluoroscopic spot images as above. See separate procedure report for more information. D/ / 05/23/2017 15:17:26 Latesha Gregg MD / [facility] Interpreting Provider: Latesha Gregg MD - VTE Documentation of Mechanical Device: Intermittent pneumatic compression device Consult Discharge Plan - Plan Referrals: Dayana Ellis MD [Primary Care Provider] -
--- NOTE | 2017-05-24 13:46 | Orthopedics Progress Note ---
Date of Encounter: 05/24/17 Time of Encounter: 13:45 Subjective Principal diagnosis: Left femur fracture Interval history: 05/22/2017. 2110 hrs. patient was scheduled for surgery today, unfortunately the operating room is busy with an unknown potential start time for our case. I discussed with the patient and family that I would recommend we cancel the case for tonight and schedule her for tomorrow. I have discussed with the operating room staff and feel that we should be able to start in the early afternoon at the latest unless some other concerns arise. Patient and family understand and agree. We will give her dinner tonight. Nothing by mouth after midnight for surgery tomorrow. 05/24/2017. Patient is postoperative day #1 intramedullary nailing of left proximal femoral diaphyseal fracture. Patient is quite comfortable. Not having any pain if she is sitting quietly. Vital signs are stable she is afebrile. Dressings are clean and dry. Hemoglobin is 9. Platelet count has dropped to 129. Impression: POD #1 intramedullary nailing left femur Recommendation/plan: Patient can be weightbearing as tolerated on the left lower extremity. PT and OT are working with the patient. professional services specialist for discharge planning. Orthopedic status is stable. Check labs in a.m. Objective Vital signs: Vital Signs Temp Pulse Resp BP Pulse Ox 05/24/17 10:28 98.2 F 78 14 136/54 96 05/24/17 06:53 98.3 F 68 16 128/54 95 05/24/17 03:58 98.0 F 74 16 125/56 94 05/23/17 23:41 97.8 F 68 14 117/49 92 05/23/17 20:15 98.0 F 80 16 147/63 96 05/23/17 18:51 98.3 F 82 16 154/69 99 05/23/17 18:22 98.3 F 82 15 150/59 100 05/23/17 17:57 100 05/23/17 17:54 98.3 F 78 15 143/54 100 05/23/17 17:28 98.3 F 70 16 160/55 100 05/23/17 17:18 69 12 155/55 100 05/23/17 17:08 98.3 F 69 14 165/65 100 05/23/17 16:58 71 14 173/59 100 05/23/17 16:48 69 14 168/86 100 05/23/17 16:38 98.4 F 66 14 187/60 100 05/23/17 16:28 64 14 194/61 100 05/23/17 16:18 98.4 F 66 14 186/63 100 05/23/17 16:08 98.8 F 60 14 179/58 100 05/23/17 15:58 98.8 F 69 12 191/62 100 05/23/17 15:48 72 16 176/58 100 05/23/17 15:38 98 F 66 14 178/54 100 Intake and Output 05/23/17 05/24/17 05/24/17 23:59 07:59 15:59 Intake Total 475 / 475 Output Total 400 / 400 300 / 300 Balance 75 / 75 -300 / -300 Intake: IV Fluids 100 / 100 Ancef 2,000 MG In 100 / 100 Dextrose 5% 100 ML @ 200 mls/hr IVPB Q8HR [facility] Rx#: [id number] Blood Product 375 / 375 Rbcs Leuko Poor As-1 375 / 375 Unit [id number] Output: Catheter 400 / 400 300 / 300 Other: Weight 57.3 kg Patient Weight 05/24/17 23:59 Weight 57.3 kg - Labs CBC & BMP: 05/24/17 07:10 05/24/17 07:10 Labs: Abnormal lab results RBC 2.84 M/mcL (3.82-4.97) L 05/24/17 07:10 Hgb 9.0 g/dL (11.5-15.4) L D 05/24/17 07:10 Hct 26.6 % (35.3-44.9) L 05/24/17 07:10 RDW 17.2 % (11.5-14.5) H 05/24/17 07:10 Plt Count 129 K/mcL (140-400) L 05/24/17 07:10 Glucose 117 mg/dL (70-99) H 05/24/17 07:10 POC Glucose 110 (58-89) H 05/23/17 11:39 Calcium 7.8 mg/dL (8.6-10.8) L 05/24/17 07:10 Iron 30 mcg/dL (50-170) L 05/23/17 09:20 % Saturation 12 % (15-50) L 05/23/17 09:20 Transferrin 176 mg/dL (180-382) L 05/23/17 09:20 Ferritin 271 ng/ml (5-204) H 05/23/17 09:20 - VTE Documentation of Mechanical Device: Intermittent pneumatic compression device Consult Discharge Plan - Plan Referrals: Dayana Ellis MD [Primary Care Provider] -
[2017-05-24] MEDS: Sennosides 8.6 MG TABLET PO SCH (20:35)
[2017-05-25] MEDS: *HR* HYDROcodone/Acet 5/325 mg TABLET PO PRN ×3 (04:04→16:28)
[2017-05-25] MEDS: *HR* Enoxaparin 40 MG/0.4 ML SYRINGE SQ SCH (06:31)
[2017-05-25 07:08] LABS: Hematocrit 26.9 % (35.3-44.9); Hemoglobin 8.7 g/dL (11.5-15.4); Mean Corpuscular HGB Conc 32.3 g/dL (31.6-35.5); Mean Corpuscular Hemoglobin 31.2 pg (28.0-33.3); Mean Corpuscular Volume 96.4 fL (83.0-100.0); Mean Platelet Volume 10.9 fL (9.4-12.4); Platelet Count 137 K/mcL (140-400); Red Blood Count 2.79 M/mcL (3.82-4.97); Red Cell Distribution Width 17.1 % (11.5-14.5)
[2017-05-25 07:30] LABS: BUN/Creatinine Ratio 28 (6-26); Blood Urea Nitrogen 23 mg/dL (7-20); Calcium 7.6 mg/dL (8.6-10.8); Carbon Dioxide 28 mEq/L (19-29); Chloride 107 mEq/L (98-109); Glucose 148 mg/dL (70-99); Magnesium 1.5 mg/dL (1.6-2.6); Osmolality,Calculated 292 (280-300); Phosphorous 2.5 mg/dL (2.3-4.7); Potassium 4.1 mEq/L (3.5-4.5); Sodium 138 mEq/L (136-145); eGFR For African Americans > 60 (> 60); eGFR For Non-African Americans > 60 (> 60)
[2017-05-25] MEDS ORDERED: Magnesium Sulfate 1 GM in D5% in Water 100 ML IVPB ONE (07:59)
[2017-05-25 08:04] LABS: Eosinophils # 0.4 K/mcL (0.0-0.6); Lymphocytes # 0.9 K/mcL (0.6-4.6)
[2017-05-25 08:06] LABS: Platelet Estimate Normal (Normal)
[2017-05-25] MEDS: Gabapentin 300 MG CAPSULE PO SCH ×3 (09:25→16:29)
[2017-05-25] MEDS: RESTASIS OP SCH (09:40)
--- NOTE | 2017-05-25 11:39 | Orthopedics Progress Note ---
Date of Encounter: 05/25/17 Time of Encounter: 11:35 Subjective Principal diagnosis: Left femur fracture Interval history: 05/22/2017. 2110 hrs. patient was scheduled for surgery today, unfortunately the operating room is busy with an unknown potential start time for our case. I discussed with the patient and family that I would recommend we cancel the case for tonight and schedule her for tomorrow. I have discussed with the operating room staff and feel that we should be able to start in the early afternoon at the latest unless some other concerns arise. Patient and family understand and agree. We will give her dinner tonight. Nothing by mouth after midnight for surgery tomorrow. 05/24/2017. Patient is postoperative day #1 intramedullary nailing of left proximal femoral diaphyseal fracture. Patient is quite comfortable. Not having any pain if she is sitting quietly. Vital signs are stable she is afebrile. Dressings are clean and dry. Hemoglobin is 9. Platelet count has dropped to 129. Impression: POD #1 intramedullary nailing left femur Recommendation/plan: Patient can be weightbearing as tolerated on the left lower extremity. PT and OT are working with the patient. career services coordinator for discharge planning. Orthopedic status is stable. Check labs in a.m. In. Patient is POD #2 IM nailing left proximal femur. Patient is comfortable. Pain is minimal. She is quite happy with the treatment she has received thus far. Vital signs are stable. Patient is afebrile. Ramiro wrap was removed. Dressings are clean and dry. Improved edema in the lower extremity. Neurovascular exam normal. Hemoglobin is 8.7. Platelet count is slowly improving. Impression: POD #2 IM nailing left femur Recommendations/plan: As noted patient can be weightbearing as tolerated. Continue to work PT and OT. Work on strengthening of left lower extremity. Anticipate patient being discharged to long-term facility when arrangements are complete. Will need follow-up with me in about 3 weeks after discharge. Objective Vital signs: Vital Signs Temp Pulse Resp BP Pulse Ox 05/25/17 10:44 98.3 F 87 16 138/64 95 05/25/17 09:16 96 05/25/17 06:56 98.1 F 83 16 134/68 96 05/25/17 00:00 97.7 F 75 15 130/65 98 05/24/17 20:09 98.0 F 78 16 132/67 98 05/24/17 16:19 97.9 F 79 16 139/58 98 Intake and Output 05/24/17 05/25/17 05/25/17 23:59 07:59 15:59 Intake Total 240 / 240 Balance 240 / 240 Intake: Oral 240 / 240 Other: Meal Dinner Percent of Meal Consumed 100% - Labs CBC & BMP: 05/25/17 06:55 05/25/17 06:55 Labs: Abnormal lab results RBC 2.79 M/mcL (3.82-4.97) L 05/25/17 06:55 Hgb 8.7 g/dL (11.5-15.4) L 05/25/17 06:55 Hct 26.9 % (35.3-44.9) L 05/25/17 06:55 RDW 17.1 % (11.5-14.5) H 05/25/17 06:55 Plt Count 137 K/mcL (140-400) L 05/25/17 06:55 BUN 23 mg/dL (7-20) H 05/25/17 06:55 BUN/Creatinine Ratio 28 (6-26) H 05/25/17 06:55 Glucose 148 mg/dL (70-99) H 05/25/17 06:55 POC Glucose 110 (58-89) H 05/23/17 11:39 Calcium 7.6 mg/dL (8.6-10.8) L 05/25/17 06:55 Magnesium 1.5 mg/dL (1.6-2.6) L 05/25/17 06:55 Iron 30 mcg/dL (50-170) L 05/23/17 09:20 % Saturation 12 % (15-50) L 05/23/17 09:20 Transferrin 176 mg/dL (180-382) L 05/23/17 09:20 Ferritin 271 ng/ml (5-204) H 05/23/17 09:20 - VTE Documentation of Mechanical Device: Intermittent pneumatic compression device Consult Discharge Plan - Plan Referrals: Dayana Ellis MD [Primary Care Provider] -
--- NOTE | 2017-05-25 14:10 | Discharge Summary ---
Date of Encounter: 05/25/17 Time of Encounter: 14:08 - Discharge Diagnosis (1) Anemia Priority: Secondary Status: Acute Qualifiers: Anemia type: unspecified type Qualified Code(s): D64.9 - Anemia, unspecified (2) Femur fracture, left Priority: Primary Status: Acute Qualifiers: Encounter type: initial encounter Femur location: unspecified portion of femur Fracture type: closed Fracture morphology: unspecified fracture morphology Qualified Code(s): S72.92XA - Unspecified fracture of left femur, initial encounter for closed fracture (3) Coronary artery disease Priority: Secondary Status: Chronic Qualifiers: Coronary Disease-Associated Artery/Lesion type: [place] artery [place] vs. transplanted heart: [place] heart Associated angina: without angina Qualified Code(s): I25.10 - Atherosclerotic heart disease of [place] coronary artery without angina pectoris (4) Essential hypertension Priority: Secondary Status: Chronic (5) Hypothyroid Priority: Secondary Status: Chronic Qualifiers: Hypothyroidism type: unspecified Qualified Code(s): E03.9 - Hypothyroidism , unspecified (6) DVT prophylaxis Priority: Secondary Status: Acute - Discharge Medications Prescriptions: HYDROcodone/Acet 5/325 mg [[place] 5-325 mg] 1 tab PO Q4HR PRN #15 tab PRN Reason: Severe Pain Enoxaparin [Lovenox] 40 mg SQ 0600 #28 Gabapentin [Neurontin] 300 mg PO TID #30 Tramadol HCl [Ultram] 50 - 100 mg PO TID PRN #15 PRN Reason: Pain Home Medications: Aspirin 81 mg PO DAILY 10/31/15 [History] Calcium Carbonate [Calcium] 1,200 mg PO DAILY 10/31/15 [History] Citalopram Hydrobromide [Celexa] 10 mg PO DAILY 10/31/15 [History] Cyclosporine [Restasis] 1 drop OP BID 10/31/15 [History] Levothyroxine [Synthroid] 50 mcg PO DAILY 10/31/15 [History] Nitroglycerin [Nitrostat] 0.4 mg SL AD PRN 10/31/15 [History] Sennosides [Senna] 8.6 mg PO TID PRN 10/31/15 [History] Zoledronic Acid (Reclast) [Reclast Premix 5 MG/100 ML] 5 mg IV [id number] [History] Atorvastatin [Lipitor] 40 mg PO HS 01/31/17 [History] Omeprazole 20 mg PO BID 01/31/17 [History] Enoxaparin [Lovenox] 40 mg SQ 0600 #28 05/25/17 [Rx] Gabapentin [Neurontin] 300 mg PO TID #30 05/25/17 [Rx] HYDROcodone/Acet 5/325 mg [[place] 5-325 mg] 1 tab PO Q4HR PRN #15 tab 05/25/17 [ Rx] Tramadol HCl [Ultram] 50 - 100 mg PO TID PRN #15 05/25/17 [Rx] Allergies/Adverse Reactions: Allergies dicyclomine [From Bentyl] Allergy (Verified 05/21/17 21:42) Hives Sulfa (Sulfonamide Antibiotics) Allergy (Verified 05/21/17 21:42) Hives Date of admission: 05/21/17 22:32 Primary care physician: Dayana Ellis Consults: 05/22/17 08:23 Consult to Invasive Line Access Team [CONS] Routine Reason for Consult: limited access, patient having surgery today Line Type: EPIV PICC line indications: Limited vascular access 05/23/17 17:53 Consult to Occupational Therapy [CONS] Routine Comment: Evaluate, develop and implement POC Reason for Consult: adls Consult to Physical Therapy [CONS] Routine Comment: Evaluate, develop and implement POC Reason for Consult: fx Consult to Blood Bank Booking Clerk [CONS] Routine Reason for SW Consult: dc Discharging clinician: Eusebia Mayo Anticipated date of discharge: 05/25/17 - Patient Status Disposition: Transfer SNF Condition: Good Functional capacity at discharge: uses cane/walker Overall status at discharge: patient is progressing back to baseline - Discharge Instructions Instructions: Open Reduction and Internal Fixation of a Leg Fracture (DC), Fall Prevention (DC) Follow Up With: Dayana Ellis MD [Primary Care Provider] - Additional Instructions: Please follow up with your primary care physician within five days after your discharge from the hospital. Please follow up with orthopedic surgery within 3 weeks after your discharge from the hospital. You are prescribed Lovenox SQ once a day for 4 weeks for DVT prophylaxis. Please ask your orthopedic physician in regards to continuation of this therapy. Please resume all your other home medications as prescribed by your primary care physician. - Diet and Activity Activity: as per physical therapy Diet: low fat, low cholesterol, low salt diet Hospital course: Ms. Mack is a 82 year old female with PMH of CAD admitted s/p fall with left femur fracture. Pt underwent surgical correction and was evaluated by physical therapy. ECF was recommended. Pt has had an uncomplicated postop course and is stable for discharged to ECF. She will be discharged to ECF with her home medications. Pt is to follow up with ortho and pcp after discharge. pt demonstrates understanding of diagnosis and agrees with the discharge care and plan. - Time Spent with Patient Total time spent providing and/or coordinating discharge services: Less than 30 minutes - Constitutional Vitals: Temp Pulse Resp BP Pulse Ox 98.3 F 87 16 138/64 95 05/25/17 10:44 05/25/17 10:44 05/25/17 10:44 05/25/17 10:44 05/25/17 10:44 General appearance: Present: cooperative, A&O X 3, no acute distress, answers questions appropriately - Head Head exam: Present: atraumatic, normocephalic - Eye Eye exam: Present: conjuntiva pink, sclera anicteric - Respiratory Respiratory exam: Present: CTAB. Absent: accessory muscle use, rales, rhonchi, wheezes - Cardiovascular Cardiovascular exam: Present: RRR, +S1, +S2. Absent: diastolic murmur, gallop, rubs, systolic murmur - GI/Abdominal GI/Abdominal exam: Present: normal bowel sounds, soft, no peritoneal signs. Absent: distended, tenderness - Extremities Exam Extremities exam: Present: warm, radial pulses palpable and symetrical. Absent : calf tenderness - Neurological Exam Neurological exam: Present: alert, oriented X3 - Psychiatric Psychiatric exam: Present: normal affect, normal mood - VTE Documentation of Mechanical Device: Intermittent pneumatic compression device
--- NOTE | 2017-05-25 14:19 | Physician Discharge Referral ---
ExtendedCare Referral Info Transfer To: F Provider in Charge after Transfer: PCP - Diagnosis (1) Anemia Priority: Secondary Status: Acute (2) Femur fracture, left Priority: Primary Status: Acute (3) Coronary artery disease Priority: Secondary Status: Chronic (4) Essential hypertension Priority: Secondary Status: Chronic (5) Hypothyroid Priority: Secondary Status: Chronic (6) DVT prophylaxis Priority: Secondary Status: Acute - Transfer Medications Prescriptions: HYDROcodone/Acet 5/325 mg [[place] 5-325 mg] 1 tab PO Q4HR PRN #15 tab PRN Reason: Severe Pain Enoxaparin [Lovenox] 40 mg SQ 0600 #28 Gabapentin [Neurontin] 300 mg PO TID #30 Tramadol HCl [Ultram] 50 - 100 mg PO TID PRN #15 PRN Reason: Pain Home Medications: Aspirin 81 mg PO DAILY 10/31/15 [History] Calcium Carbonate [Calcium] 1,200 mg PO DAILY 10/31/15 [History] Citalopram Hydrobromide [Celexa] 10 mg PO DAILY 10/31/15 [History] Cyclosporine [Restasis] 1 drop OP BID 10/31/15 [History] Levothyroxine [Synthroid] 50 mcg PO DAILY 10/31/15 [History] Nitroglycerin [Nitrostat] 0.4 mg SL AD PRN 10/31/15 [History] Sennosides [Senna] 8.6 mg PO TID PRN 10/31/15 [History] Zoledronic Acid (Reclast) [Reclast Premix 5 MG/100 ML] 5 mg IV [id number] [History] Atorvastatin [Lipitor] 40 mg PO HS 01/31/17 [History] Omeprazole 20 mg PO BID 01/31/17 [History] Enoxaparin [Lovenox] 40 mg SQ 0600 #28 05/25/17 [Rx] Gabapentin [Neurontin] 300 mg PO TID #30 05/25/17 [Rx] HYDROcodone/Acet 5/325 mg [[place] 5-325 mg] 1 tab PO Q4HR PRN #15 tab 05/25/17 [ Rx] Tramadol HCl [Ultram] 50 - 100 mg PO TID PRN #15 05/25/17 [Rx] Allergies/Adverse Reactions: Allergies dicyclomine [From Bentyl] Allergy (Verified 05/21/17 21:42) Hives Sulfa (Sulfonamide Antibiotics) Allergy (Verified 05/21/17 21:42) Hives - Respiratory Orders Smoking Cessation: Smoking cessation has been advised. For more information, call the [place] Tobacco Quit Line at 8-664-SIBM-NOW. - Rehabiliation Orders Other: Please follow up with your primary care physician within five days after your discharge from the hospital. Please follow up with orthopedic surgery within 3 weeks after your discharge from the hospital. You are prescribed Lovenox SQ once a day for 4 weeks for DVT prophylaxis. Please ask your orthopedic physician in regards to continuation of this therapy. Please resume all your other home medications as prescribed by your primary care physician. CERTIFICATION: I certify that the transfer of the above named patient to an Extended Care Facility is necessary for the continuing treatment of the diagnosis listed. The above information is true and accurate reflection of patient's current condition. Confidential - Redisclosure prohibited without a patient's written consent.
[2017-05-25 15:30] VITALS: BP 119/56
== END 2017-05-25 17:50 | DRG 482 ==
LOC: 3NENU 19:18 → EMEROO 19:18 → SUATTDRO 22:32 → 3NENU 22:49
PROVIDERS: ADMIT Internal Medicine; ATTEND Internal Medicine

== ENCOUNTER 2018-06-03 11:45 | Observation (INO) ==
--- NOTE | 2018-06-03 11:57 | Emergency Department Note ---
Disposition Clinical Impression: Generalized weakness, ALLIE (acute kidney injury) Anemia Qualifiers: Anemia type: other cause Other causes of anemia: other cause, not classified Qualified Code(s): D64.89 - Other specified anemias Hypotension Qualifiers: Hypotension type: unspecified hypotension type Qualified Code(s): I95.9 - Hypotension, unspecified Disposition: Admitted As Inpatient Condition: Undetermined Referrals: Dayana Ellis MD [Primary Care Provider] - Forms: ED Satisfaction Letter Time of Disposition: 14:52 General Adult HPI - General Chief complaint: ED Weakness Stated complaint: Hypotension,Lethargic Time Seen by Provider: 06/03/18 11:53 Source: patient, EMS Mode of arrival: EMS Limitations: no limitations Nursing Notes Reviewed: Yes Vital Signs Reviewed: Yes - History of Present Illness HPI Narrative: 83-year-old female arrives to the emergency department with concern for possible "lethargy" and generalized weakness while patient was at doctor's office. There is been a large weight loss roughly 20 pounds over the past couple months. The patient was noted to be hypotensive with systolic blood pressure in the mid 80s. The patient denies any specific complaints other than a back pain. The patient is currently on chronic pain medicines and has had increase her dose over the course of the past few days and weeks secondary to the large amount of pain she is expressing her back. The patient had a recent MRI. The patient denies any complaints at this time including cough, fever, abdominal pain, nausea, vomiting, diarrhea, dysuria. The patient is lucid and answering all questions appropriately. She has no signs of toxidrome and symptoms or intoxication at this time on evaluation. The patient states that she has been eating and drinking well but family members corroborated the patient has had decreased by mouth intake. The patient is dry mucous members on evaluation. Systolic blood pressure in route was noted to be mid 80s as well. The patient denies any other complaints. Patient's family does note that the patient may need to go to rehabilitation facility as the patient already has home health this time. - Related Data Allergies Allergy/AdvReac Type Severity Reaction Status Date / Time Sulfa (Sulfonamide Allergy Hives Verified 04/04/18 20:20 Antibiotics) dicyclomine [From Bentyl] AdvReac Vomiting Verified 04/04/18 20:20 All systems ED: reviewed and negative except as stated. Constitutional: Reports: weakness. Denies: fever, chills ENT ED: Denies: dysphagia Cardiovascular: Denies: chest pain Respiratory: Denies: dyspnea Gastrointestinal: Denies: abdominal pain, nausea, vomiting, diarrhea, constipation, hematemesis, melena, hematochezia Genitourinary: Denies: urgency, dysuria, hematuria, discharge Musculoskeletal: Denies: back pain, neck pain Integumentary: Denies: rash, lesions Neurological: Denies: headache Past Medical History - Past Medical History Attestation: Yes The following information was validated with the patient. Source: patient, old records reviewed Medical history: Reports: non-contributory, other (back problems, previous fx) Surgical history: Reports: non-contributory, other Psychiatric history: Reports: no psych history FRENCH COMBER history: Reports: no FR[employer] COMBER history - Social History Smoking Status: Never smoker Smokeless Tobacco Status: No Alcohol use: Reports: none Drug use: Reports: none Physical Exam - General Limitations: no limitations General appearance: alert, in no apparent distress - Head Head exam: atraumatic, normocephalic, normal inspection - Eye Eye exam: Present: normal appearance, PERRL, EOMI - ENT ENT exam: normal exam, normal oropharynx, mucous membranes moist - Neck Neck exam: Present: normal inspection, full ROM, trachea midline - Chest Chest inspection: Present: normal inspection, symmetric chest wall rise - Respiratory Respiratory exam: Present: normal lung sounds bilaterally - Cardiovascular Cardiovascular exam: Present: regular rate, normal rhythm, normal heart sounds - Abdominal Exam Abdominal exam: Present: soft, Non-Tender. Absent: tenderness, distention, guarding, rebound, rigidity - Extremities Exam Extremities exam: Present: normal inspection, full ROM. Absent: tenderness, pedal edema - Neurological Exam Neurological exam: Present: alert, oriented X3, CN II-XII intact - Skin Skin exam: Present: warm, dry, intact, normal color Course Vital Signs Temperature 97.8 F 06/03/18 11:50 Pulse Rate 89 06/03/18 11:50 Respiratory Rate 14 06/03/18 11:50 Blood Pressure 126/59 06/03/18 11:50 O2 Sat by Pulse Oximetry 98 06/03/18 11:50 Temperature 97.8 F 06/03/18 11:50 Pulse Rate 71 06/03/18 14:10 Respiratory Rate 18 08/07/18 14:10 Blood Pressure 189/72 06/03/18 14:10 O2 Sat by Pulse Oximetry 96 06/03/18 14:10 Oxygen Delivery Oxygen Delivery Room Air Medical Decision Making - MDM Narrative Medical decision making narrative: Patient's workup in the emergency department demonstrates a hemoglobin of 7.8. Patient was noted to be hypotensive upon arrival with systolic in the 80s. She was given a liter fluid here in the emergency department with the last systolic blood pressure 127. The patient is resting comfortably in the room at this time. She denies any other complaints. Hemoccult negative. We will get the patient to the hospital. Patient's family and patient were made aware. Given the large amount of weight loss and generalized weakness at home, the patient will likely be admitted to rehabilitation facility. This was confirmed by social work who has seen the patient here in the emergency department. The patient will be admitted to the hospitalist, accepted by Dr. Thomas. - Lab Data Lab results reviewed: Yes I reviewed the patient's lab results. Result diagrams: 06/03/18 13:19 06/03/18 13:19 Lab Results 06/03/18 06/03/18 06/03/18 Range/Units 13:19 13:19 13:19 WBC 10.5 (4.3-11.1) K/mcL RBC 2.30 L (3.82-4.97) M/mcL Hgb 7.8 L (11.5-15.4) g/dL Hct 24.0 L (35.3-44.9) % MCV 104.3 H (83.0-100.0) fL MCH 33.9 H (28.0-33.3) pg MCHC 32.5 (31.6-35.5) g/dL RDW 12.6 (11.5-14.5) % Plt Count 255 (140-400) K/mcL MPV 10.1 (9.4-12.4) fL Immature Gran % 0.3 (0-4) % Seg Neutrophils % 74.0 % Lymphocytes % 16.1 % Monocytes % 5.8 % Eosinophils % 3.6 % Basophils % 0.2 % Neutrophils # 7.8 (1.6-8.9) K/mcL Lymphocytes # 1.7 (0.6-4.6) K/mcL Monocytes # 0.6 (0.0-1.3) K/mcL Eosinophils # 0.4 (0.0-0.6) K/mcL Basophils # 0.0 (0.0-0.2) K/mcL PT 11.8 (9.4-12.1) Seconds INR 1.0 APTT 27.4 (26.0-36.0) Seconds Sodium 135 L (136-145) mEq/L Potassium 3.9 (3.5-5.1) mEq/L Chloride 107 (98-107) mEq/L Carbon Dioxide 24 (23-29) mEq/L BUN 18 (8-23) mg/dL Creatinine 1.15 (0.60-1.20) mg/dL Est GFR ( Amer) 54 L (> 60) Est GFR (Non-Af Amer) 45 L (> 60) BUN/Creatinine Ratio 16 (6-26) Glucose 113 H (70-105) mg/dL Calculated Osmolality 283 (280-300) Lactic Acid (0.5-2.2) mmol/L Calcium 8.0 L (8.6-10.3) mg/dL Magnesium 1.9 (1.6-2.6) mg/dL Total Bilirubin 0.2 L (0.3-1.0) mg/dL Direct Bilirubin 0.0 (0.0-0.2) mg/dL Indirect Bilirubin 0.2 (0.0-1.2) mg/dL AST 13 (13-39) Units/L ALT 10 (7-52) Units/L Alkaline Phosphatase 157 H (34-104) Units/L Troponin I < 0.03 (< 0.04) ng/mL Serum Total Protein 5.3 L (6.4-8.9) g/dL Albumin 2.9 L (3.5-5.7) g/dL Globulin 2.4 (2.4-3.5) g/dL Albumin/Globulin Ratio 1.2 (1.1-2.2) Urine Color (Yellow) Urine Clarity (Clear) Urine pH (5.0-8.0) pH Units Ur Specific [place] (1.010-1.025) Urine Protein (Neg-Trace) mg/dL Urine Glucose (UA) (Normal) mg/dL Urine Ketones (Negative) mg/dL Urine Blood (Negative) Urine Nitrite (Negative) Urine Bilirubin (Negative) Urine Urobilinogen (Normal) mg/dL Ur Leukocyte Esterase (Negative) Urine Microscopic RBC (0-3) per hpf Urine Microscopic WBC (0-3) per hpf Ur Squamous Epith Cells (None-Few) per lpf Urine Bacteria (None-Few) per hpf Hyaline Casts (None-Few) per lpf Ur Culture Indicated? (NO) Stool Occult Bld Scrn (Negative) 06/03/18 06/03/18 06/03/18 Range/Units 13:19 13:46 14:06 WBC (4.3-11.1) K/mcL RBC (3.82-4.97) M/mcL Hgb (11.5-15.4) g/dL Hct (35.3-44.9) % MCV (83.0-100.0) fL MCH (28.0-33.3) pg MCHC (31.6-35.5) g/dL RDW (11.5-14.5) % Plt Count (140-400) K/mcL MPV (9.4-12.4) fL Immature Gran % (0-4) % Seg Neutrophils % % Lymphocytes % % Monocytes % % Eosinophils % % Basophils % % Neutrophils # (1.6-8.9) K/mcL Lymphocytes # (0.6-4.6) K/mcL Monocytes # (0.0-1.3) K/mcL Eosinophils # (0.0-0.6) K/mcL Basophils # (0.0-0.2) K/mcL PT (9.4-12.1) Seconds INR APTT (26.0-36.0) Seconds Sodium (136-145) mEq/L Potassium (3.5-5.1) mEq/L Chloride (98-107) mEq/L Carbon Dioxide (23-29) mEq/L BUN (8-23) mg/dL Creatinine (0.60-1.20) mg/dL Est GFR ( Amer) (> 60) Est GFR (Non-Af Amer) (> 60) BUN/Creatinine Ratio (6-26) Glucose (70-105) mg/dL Calculated Osmolality (280-300) Lactic Acid 0.9 (0.5-2.2) mmol/L Calcium (8.6-10.3) mg/dL Magnesium (1.6-2.6) mg/dL Total Bilirubin (0.3-1.0) mg/dL Direct Bilirubin (0.0-0.2) mg/dL Indirect Bilirubin (0.0-1.2) mg/dL AST (13-39) Units/L ALT (7-52) Units/L Alkaline Phosphatase (34-104) Units/L Troponin I (< 0.04) ng/mL Serum Total Protein (6.4-8.9) g/dL Albumin (3.5-5.7) g/dL Globulin (2.4-3.5) g/dL Albumin/Globulin Ratio (1.1-2.2) Urine Color Yellow (Yellow) Urine Clarity Clear (Clear) Urine pH 7.5 (5.0-8.0) pH Units Ur Specific [place] < 1.005 L (1.010-1.025) Urine Protein 30 H (Neg-Trace) mg/dL Urine Glucose (UA) Normal (Normal) mg/dL Urine Ketones Negative (Negative) mg/dL Urine Blood Negative (Negative) Urine Nitrite Negative (Negative) Urine Bilirubin Negative (Negative) Urine Urobilinogen Normal (Normal) mg/dL Ur Leukocyte Esterase Negative (Negative) Urine Microscopic RBC 0-3 (0-3) per hpf Urine Microscopic WBC 5-15 H (0-3) per hpf Ur Squamous Epith Cells Many H (None-Few) per lpf Urine Bacteria None Seen (None-Few) per hpf Hyaline Casts None Seen (None-Few) per lpf Ur Culture Indicated? NO (NO) Stool Occult Bld Scrn Negative (Negative) - Radiology Data Radiology results reviewed: Yes I reviewed the patient's radiology results. Chest X-Ray 06/03/18 11:53 IMPRESSION: No acute process. D/ / Charles Wolf MD / Charles Wolf MD Interpreting Provider: Charles Wolf MD Abdomen/Pelvis CT 06/03/18 11:54 IMPRESSION: 1. Interval development of sacral insufficiency fractures which were not visualized on prior exam dated February 15, 2018. 2. No acute intra- abdominal process identified. 3. Severe atherosclerotic disease. D/ / Vinay Mendoza MD / Vinay Mendoza MD Interpreting Provider: Vinay Mendoza MD - EKG Data EKG #1 EKG attestation: Yes I reviewed and interpreted this EKG. EKG results narrative: Heart rate 67 beats for minute. Normal sinus rhythm. No ST elevation or ST depression. There is some nonspecific changes noted in lead 3. No acute changes noted otherwise.
[2018-06-03] MEDS: 0.9 % Sodium Chloride 1,000 ML IVC SCH ×2 (12:07→22:27)
[2018-06-03 13:36] LABS: Basophils % 0.2 %; Eosinophils # 0.4 K/mcL (0.0-0.6); Eosinophils % 3.6 %; Hemoglobin 7.8 g/dL (11.5-15.4); Immature Granulocytes % 0.3 % (0-4); Lymphocytes # 1.7 K/mcL (0.6-4.6); Lymphocytes % 16.1 %; Mean Corpuscular HGB Conc 32.5 g/dL (31.6-35.5); Mean Corpuscular Hemoglobin 33.9 pg (28.0-33.3); Mean Corpuscular Volume 104.3 fL (83.0-100.0); Mean Platelet Volume 10.1 fL (9.4-12.4); Monocytes # 0.6 K/mcL (0.0-1.3); Monocytes % 5.8 %; Neutrophils # 7.8 K/mcL (1.6-8.9); Platelet Count 255 K/mcL (140-400); Red Cell Distribution Width 12.6 % (11.5-14.5)
[2018-06-03 13:41] LABS: Prothrombin Time 11.8 Seconds (9.4-12.1)
[2018-06-03 13:44] LABS: Activated Partial Thrombo Time 27.4 Seconds (26.0-36.0)
[2018-06-03 13:55] LABS: Troponin I < 0.03 ng/mL (< 0.04)
[2018-06-03 13:56] LABS: Alanine Aminotransferase 10 Units/L (7-52); Albumin 2.9 g/dL (3.5-5.7); Albumin/Globulin Ratio 1.2 (1.1-2.2); Alkaline Phosphatase 157 Units/L (34-104); Aspartate Amino Transferase 13 Units/L (13-39); BUN/Creatinine Ratio 16 (6-26); Bilirubin,Indirect 0.2 mg/dL (0.0-1.2); Bilirubin,Total 0.2 mg/dL (0.3-1.0); Blood Urea Nitrogen 18 mg/dL (8-23); Carbon Dioxide 24 mEq/L (23-29); Chloride 107 mEq/L (98-107); Globulin 2.4 g/dL (2.4-3.5); Glucose 113 mg/dL (70-105); Magnesium 1.9 mg/dL (1.6-2.6); Osmolality,Calculated 283 (280-300); Potassium 3.9 mEq/L (3.5-5.1); Sodium 135 mEq/L (136-145); Total Protein 5.3 g/dL (6.4-8.9); eGFR For Non-African Americans 45 (> 60)
[2018-06-03 14:00] LABS: Bilirubin,Urine Negative (Negative); Blood,Urine Negative (Negative); Clarity,Urine Clear (Clear); Color,Urine Yellow (Yellow); Glucose,Urine (UA) Normal (Normal); Ketones,Urine Negative (Negative); Leukocyte Esterase,Urine Negative (Negative); Nitrite,Urine Negative (Negative); PH,Urine 7.5 pH Units (5.0-8.0); Protein,Urine 30 mg/dL (Neg-Trace); Specific Gravity,Urine < 1.005 (1.010-1.025); Urobilinogen,Urine Normal (Normal)
[2018-06-03 14:02] LABS: Bacteria,Urine None Seen per hpf (None-Few); Hyaline Casts,Urine None Seen per lpf (None-Few); RBC,Urine 0-3 per hpf (0-3); Squamous Epithelial Cell,Urine Many per lpf (None-Few)
[2018-06-03] MEDS ORDERED: *HR* OxyCODONE/APAP 5/325 TABLET PO ONE (15:23)
--- NOTE | 2018-06-03 20:47 | Internal Med History&Physical ---
Date of Encounter: 06/03/18 Time of Encounter: 20:00 Internal Medicine - H&P: HPI Admitted From: Home Plans for Post Hospital Care: Home History of present illness: Ms. Mack is a 83 year old female with past medical history of HTN, CAD, hypothyroidism, recent surgery for left femur fracture, who presents with pain sacral region and weakness. Pt denies having dark, bright red, or bloody stools. She was hypotensive in ED and was given 1L fluid bolus. Pt requesting rehab due to increasing difficulty ambulating. Pt states she has hx of sciatica and has had increasing LLE pain. In ED stool guaiac was negative in ED WBC 10.5, hgb 7.8, plt 255. MCV 104.3. PT 11.8, INR 1.0. Na 135, K 3.9, BUN 18, C 1.1.[address] abdomen and pelvis CT/CT abd pelvis wo no iv no oral IMPRESSION: 1. Interval development of sacral insufficiency fractures which were not visualized on prior exam dated February 15, 2018. 2. No acute intra- abdominal process identified. 3. Severe atherosclerotic disease. D/ / Vinay Mendoza MD / Vinay Mendoza MD Interpreting Provider: Vinay Mendoza MD Chest x ray XR/XR chest 1V portable IMPRESSION: No acute process. CODE STATUS: FULL, needs verified. Past Med Surg Social Fam HX - Past Medical History Medical history: non-contributory, other (back problems, previous fx) Additional medical history: arthritis, CAD, cataracts Psychiatric history: no psych history - Past Surgical History Surgical History: non-contributory, other Additional surgical history: LHC, sinus sx, left wrist sx, left femur sx, - Social History Smoking Status: Never smoker Smokeless Tobacco Status: No Alcohol use: none Drug use: none - Family History Father Adopted: No Family Member Ethnicity: Non- Living Status: Hx Family Cardiac Disorders: Yes (mi) Hx Family Respiratory Disorders: No Hx Family Cancer: No Hx Family GI Disorders: No Hx Family Endocrine Disorder: No Hx Family Neuromuscular Disorders: No Hx Family Neurologic Disorders: No Hx Family HEENT Disorders: No Hx Family Autoimmune Disorders: No Internal Medicine - H&P: Meds Aspirin Enteric Coated [Aspirin EC] 81 mg PO DAILY 06/03/18 [History] Citalopram Hydrobromide [Citalopram HBr] 10 mg PO DAILY 06/03/18 [History] Cyanocobalamin (Vitamin B-12) [Vitamin B-12] 1,000 mcg PO DAILY 06/03/18 [ History] Cyclosporine [Restasis] 1 drop BOTH EYES BID 06/03/18 [History] Docusate [Colace] 100 mg PO BID 06/03/18 [History] Gabapentin [Neurontin] 200 mg PO HS 06/03/18 [History] Levothyroxine Sodium 50 mcg PO DAILY 06/03/18 [History] Lisinopril [Zestril] 20 mg PO DAILY 06/03/18 [History] Meclizine HCl [Verticalm] 25 mg PO DAILY PRN 06/03/18 [History] Meloxicam [Meloxicam] 15 mg PO DAILY 06/03/18 [History] Nitroglycerin [Nitrostat] 0.4 mg SL Q5MIN PRN 06/03/18 [History] Omeprazole [PriLOSEC] 20 mg PO BID 06/03/18 [History] OxyCODONE/APAP 10/325 [Percocet 10/325 MG] 1 tab PO TID PRN 06/03/18 [History] Sennosides [Senna] 8.6 mg PO DAILY 06/03/18 [History] Tizanidine HCl 4 mg PO TID PRN 06/03/18 [History] Tramadol HCl [Ultram] 50 mg PO Q6H PRN 06/03/18 [History] 3 Allergy/AdvReac Type Severity Reaction Status Date / Time Sulfa (Sulfonamide Allergy Hives Verified 04/04/18 20:20 Antibiotics) dicyclomine [From Bentyl] AdvReac Vomiting Verified 04/04/18 20:20 All Systems PM: A 10-system review of systems was performed and is negative for pertinent findings except as documented above in the HPI. - Constitutional Vitals: Temp Pulse Resp BP Pulse Ox 98.4 F 76 18 180/100 98 06/03/18 17:29 06/03/18 18:46 06/03/18 17:29 06/03/18 18:46 06/03/18 17:29 General appearance: Present: A&O X 3 - Head Head exam: Present: atraumatic, normocephalic - Eye Eye exam: Present: PERRL, conjuntiva pink, sclera anicteric Pupils: Present: PERRL - Neck Neck exam general surgery: Present: supple, trachea midline. Absent: lymphadenopathy - Respiratory Respiratory exam: Present: CTAB. Absent: accessory muscle use, rales, rhonchi, wheezes - Cardiovascular Cardiovascular exam: Present: RRR, +S1, +S2. Absent: diastolic murmur, gallop, rubs, systolic murmur - GI/Abdominal GI/Abdominal exam: Present: normal bowel sounds, soft, no peritoneal signs. Absent: distended, tenderness - Extremities Exam Extremities exam: Present: warm, radial pulses palpable and symmetrical. Absent : calf tenderness, cyanotic, pedal edema - Neurological Exam Neurological exam: Present: CN II-XII intact, oriented X3, no focal deficits. Absent: pronater drift, facial droop, speech deficit - Skin Skin exam: Present: dry, intact Internal Med - H&P Results - Labs CBC & Chem 7: 06/03/18 13:19 06/03/18 13:19 - Assessment and plan (1) Generalized weakness Current Visit: Yes Status: Acute Assessment and plan: Consulting PT/OT. Likely multi factorial from pain and or anemia. (2) Coronary artery disease Current Visit: No Status: Chronic Assessment and plan: ASA daily Qualifiers: Coronary Disease-Associated Artery/Lesion type: [place] artery [place] vs. transplanted heart: [place] heart Associated angina: without angina Qualified Code(s): I25.10 - Atherosclerotic heart disease of [place] coronary artery without angina pectoris (3) Essential hypertension Current Visit: No Status: Chronic (4) Hypotension Current Visit: Yes Status: Acute Assessment and plan: Pt was given IVF and is now hypertensive. Will resume home medication for HTN. On Lisinopril. Will add Hydralazine prn. Qualifiers: Hypotension type: unspecified hypotension type Qualified Code(s): I95.9 - Hypotension, unspecified (5) Sacral fracture Current Visit: Yes Status: Acute Assessment and plan: CT abdomen and pelvis incidentally found interval development of sacral insufficiency fractures which were not visualized on prior exam dated February 15, 2018. Will give triple therapy with medrol dose xi, flexeril, and pain control. Will consult PT/OT Qualifiers: Qualified Code(s): S32.10XA - Unspecified fracture of sacrum, initial encounter for closed fracture (6) Vitamin B12 deficiency (dietary) anemia Current Visit: Yes Status: Acute Assessment and plan: Pt on Vitamin B 12 supplement but may benefit from Vitamin B12 injections as well. Checking iron, and folate studies as well. - Time Spent With Patient Total time spent is greater than 50% in coordination of care (as documented) at patient's floor/unit and/or counseling patient: 25 - 35 minutes
[2018-06-03] MEDS ORDERED: Nitroglycerin 0.4 MG TAB.SUBL SL PRN (20:51)
[2018-06-03] MEDS: Gabapentin 100 MG CAPSULE PO SCH (22:22)
[2018-06-03] MEDS: (Cyclosporine [Restasis] 1 DROP) BOTH EYES SCH (22:26)
[2018-06-04] MEDS: traMADol 50 MG TABLET PO PRN (04:56)
[2018-06-04 05:51] LABS: % Iron Saturation 8 % (15-50); Iron 23 mcg/dL (50-170); Transferrin 197 mg/dL (203-362)
[2018-06-04 06:09] LABS: Ferritin 193 ng/mL (10-120)
[2018-06-04] MEDS: *HR* Heparin 5,000 UNIT/ML VIAL SQ SCH ×2 (06:25→16:52)
--- NOTE | 2018-06-04 06:34 | Electrocardiograph Report ---
[facility] Test Date: 2018-06-03 Pat Name: Joaquina [facility] Department: 103 Room: 2NE34 Gender: F Pediatric Rn: KAILYN : 1935 Requested By: Suleiman Brady Order Number: [id number] Reading MD: Suleiman Patten Measurements Intervals [place] Rate: 67 P: 40 NC: 197 QRS: 30 QRSD: 102 T: 71 QT: 389 QTc: 404 Interpretive Statements SINUS RHYTHM NONSPECIFIC T-WAVE ABNORMALITY Electronically Signed On 06-04-2018 6:32:31 EDT by Suleiman Patten
[2018-06-04] MEDS: Cyanocobalamin (B-12) 1,000 MCG TABLET PO SCH (09:00)
[2018-06-04] MEDS: Sennosides 8.6 MG TABLET PO SCH (09:00)
[2018-06-04] MEDS: Lisinopril 20 MG TABLET PO SCH (09:00)
[2018-06-04] MEDS: methylPREDNISolone 4 MG TABLET PO SCH ×2 (09:01→16:52)
[2018-06-04] MEDS: Aspirin Enteric Coated 81 MG Tablet PO SCH (09:03)
[2018-06-04] MEDS: (Cyclosporine [Restasis] 1 DROP) BOTH EYES SCH ×2 (09:04→21:27)
--- NOTE | 2018-06-04 10:27 | Internal Med Progress Note ---
<Svitlana Castellanos P - Last Filed: 06/04/18 17:25> Date of Encounter: 06/04/18 Time of Encounter: 11:00 - Assessment and plan (1) Generalized weakness Current Visit: Yes Status: Acute Assessment and plan: She is feeling better today compared to before She has lost 10-20 pounds in a couple of months Her appetite is poor We are working on it (2) Sacral fracture Current Visit: Yes Status: Acute Assessment and plan: Her Recent CT pelvis shows Sacral insuffiency fracture It was negative in CT report in last January Her past Dexa scan shows Osteoporosis Qualifiers: Encounter type: initial encounter Qualified Code(s): S32.10XA - Unspecified fracture of sacrum, initial encounter for closed fracture (3) Anemia Current Visit: Yes Status: Acute Assessment and plan: She is anaemic clinically, her latest Hb 7.8% Her serum Iron profile is on lower range. Stool for occult blood negative Qualifiers: Anemia type: other cause Other causes of anemia: other cause, not classified Qualified Code(s): D64.89 - Other specified anemias (4) Hypotension Current Visit: Yes Status: Acute Assessment and plan: Her SBP at Ed was 80 eventhough she is known case of HTN under infusion BP improved with fluid Recent BP is 171/64 Qualifiers: Hypotension type: unspecified hypotension type Qualified Code(s): I95.9 - Hypotension, unspecified (5) Multiple myeloma Current Visit: Yes Status: Acute Assessment and plan: She has continuos bone pain and impaired renal function, insufficiency fracture in sacrum We will work up for MM : serum protein electrophoresis order Qualifiers: Multiple myeloma remission status: unspecified Qualified Code(s): C90.00 - Multiple myeloma not having achieved remission - Subjective Interval history: Today is 1st day of admission. She is 83-year-old female with PMH of HTN, CAD, hypothyroidism, admitted via ED for "lethargy" and generalized weakness for couple of days . There is been a large weight loss roughly 10-20 pounds over the past couple months. She was hypotensive with systolic blood pressure in the mid 80s in ER visit.The patient has h/o low back pain for long time and has siatica on and off in her right limb currently on chronic pain medicines and has had increase her dose over the course of the past few days and weeks secondary to the large amount of pain she is expressing her back. The patient denies any complaints at this time including cough, fever, abdominal pain, nausea, vomiting, diarrhea, dysuria, but she has Constipation.The patient states that she has been eating and drinking well e. The patient is dry mucous members on evaluation. Systolic blood pressure in route was noted to be mid 80s at ED, but her blood pressure has improved .She feels a little bit improved , but her low back pain is still there. The level of pain 3-4/10 at rest and aggravates with ambulation especially during walking She admits right lower limb numbness and tingling.Recent CT scan : sacral insufficiency fracture, left renal cyst without any change . She had done dexa-scan couple of years ago and had osteoporosis Her Vitals today : BP 171/64 pulse 71 , afebrile Her urine routine : pus cell 5-15/HPF , her serum Calcium 8.0, alkaline phosphatage 157 We have order serum protein electrophoresis as a work up for Multiple myeloma. - Constitutional Vitals: Temp Pulse Resp BP Pulse Ox 98.5 F 71 16 171/64 97 06/04/18 07:38 06/04/18 07:38 06/04/18 07:38 06/04/18 07:38 06/04/18 07:38 General appearance: Present: A&O X 3, no acute distress, underweight, answers questions appropriately - Head Head exam: Present: atraumatic, normal inspection, normocephalic - Neck Neck exam general surgery: Present: normal inspection, supple - Respiratory Additional comments: Normal chest expansion both side, equal air entry ,no rales and rhonchi - Cardiovascular Additional comments: Normal rate and rhythm, no murmur, no added sound - GI/Abdominal Additional comments: Soft, warm, not distended, no organomegaly , no mass and pulsation. - Extremities Exam Additional comments: No calf swelling , pedal edema, Motor stength, sensation,muscle bulk, reflexes are normal in both lower extremities - Back Exam Additional comments: Moderate tenderness at right lower back side at the level of L4-5 and right SI joint , upper sacral area , no pressure sores noted, no saddle area anaesthesia noted, - Neurological Exam Neurological exam: Present: alert, CN II-XII intact, oriented X3, reflexes normal, no focal deficits, strengths equal and symetr throughout Internal Medicine: Result - Labs CBC & Chem 7: 06/03/18 13:19 06/03/18 13:19 - ABG Interpretation ABG results: PT/INR, D-dimer PT 11.8 Seconds (9.4-12.1) 06/03/18 13:19 Consult Discharge Plan - Plan Referrals: Dayana Ellis MD [Primary Care Provider] - <Leodan Coats - Last Filed: 06/04/18 19:11> Date of Encounter: 06/04/18 - Assessment and plan (1) Sacral fracture Current Visit: Yes Status: Acute Qualifiers: Encounter type: subsequent encounter Fracture type: closed Fracture morphology: other fracture Fracture healing: with routine healing Qualified Code(s): S32.19XD - Other fracture of sacrum, subsequent encounter for fracture with routine healing (2) Anemia Current Visit: Yes Status: Suspected Qualifiers: Anemia type: other cause Other causes of anemia: chronic disease, other Qualified Code(s): D63.8 - Anemia in other chronic diseases classified elsewhere (3) Hypotension Current Visit: Yes Status: Resolved Qualifiers: Hypotension type: unspecified hypotension type Qualified Code(s): I95.9 - Hypotension, unspecified (4) Vitamin B12 deficiency (dietary) anemia Current Visit: Yes Status: Chronic Assessment and plan: Level normal at this time. (5) Coronary artery disease Current Visit: No Status: Chronic Qualifiers: Coronary Disease-Associated Artery/Lesion type: [place] artery [place] vs. transplanted heart: [place] heart Associated angina: without angina Qualified Code(s): I25.10 - Atherosclerotic heart disease of [place] coronary artery without angina pectoris (6) Essential hypertension Current Visit: No Status: Chronic (7) Hypothyroid Current Visit: No Status: Chronic Qualifiers: Hypothyroidism type: acquired Qualified Code(s): E03.9 - Hypothyroidism, unspecified (8) Multiple myeloma Current Visit: Yes Status: Suspected Qualifiers: Multiple myeloma remission status: unspecified Qualified Code(s): C90.00 - Multiple myeloma not having achieved remission - Constitutional Vitals: Temp Pulse Resp BP Pulse Ox 98.2 F 65 17 146/56 95 06/04/18 15:53 06/04/18 15:53 06/04/18 15:53 06/04/18 15:53 06/04/18 15:53 Internal Medicine: Result - Labs CBC & Chem 7: 06/03/18 13:19 06/03/18 13:19 - ABG Interpretation ABG results: PT/INR, D-dimer PT 11.8 Seconds (9.4-12.1) 06/03/18 13:19 - Attending Attestation I examined this patient and my medical decision-making was reviewed with the Resident Physician on 06/04/18. I agree with the documented findings, disposition and treatment plan as described except to the extent set forth below. Ms Mack is currently in observation for sacral pain and weight loss. She is anemic as well. She remains moderate to high risk. Ms Mack is having a lot of pain with movement. No fever or chills. No CP or SOB. No GI issues. Exam Alert Moderate distress due to pain Mucus membranes dry Heart reg No wheeze Abd soft I/P 1. Sacral fractures - pain control. 2. Osteoporosis 3. Anemia - chronic disease versus other. SPEP ordered. 4. Weight loss. Further diagnoses and plan as above. D/C planning for SNF.
[2018-06-04] MEDS: *HR* OxyCODONE/APAP 10/325 TABLET PO PRN (11:17)
[2018-06-04] MEDS: Gabapentin 100 MG CAPSULE PO SCH (21:19)
[2018-06-05] MEDS: *HR* OxyCODONE/APAP 10/325 TABLET PO PRN ×2 (05:15→14:49)
[2018-06-05] MEDS: *HR* Heparin 5,000 UNIT/ML VIAL SQ SCH ×2 (06:09→16:53)
[2018-06-05] MEDS: Sennosides 8.6 MG TABLET PO SCH (07:43)
[2018-06-05] MEDS: Aspirin Enteric Coated 81 MG Tablet PO SCH (07:43)
[2018-06-05] MEDS: methylPREDNISolone 4 MG TABLET PO SCH ×2 (07:43→16:53)
[2018-06-05] MEDS: Cyanocobalamin (B-12) 1,000 MCG TABLET PO SCH (07:44)
[2018-06-05] MEDS: (Cyclosporine [Restasis] 1 DROP) OP SCH (07:44)
[2018-06-05] MEDS: Lisinopril 20 MG TABLET PO SCH (07:44)
--- NOTE | 2018-06-05 10:50 | Internal Med Progress Note ---
<Svitlana Castellanos P - Last Filed: 06/05/18 16:54> Date of Encounter: 06/05/18 Time of Encounter: 11:00 - Assessment and plan (1) Generalized weakness Current Visit: Yes Status: Acute Assessment and plan: She is feeling better today compared to before She has lost 10-20 pounds in a couple of months Her appetite is poor We ordered urine bence William protein, protein electrophoresis, periphral blood smear to r/o Multiple myeloma Thyroid function test ordered (2) Sacral fracture Current Visit: Yes Status: Acute Assessment and plan: Her Recent CT pelvis shows Sacral insuffiency fracture It was negative in CT report in last January Her past Dexa scan shows Osteoporosis Qualifiers: Encounter type: subsequent encounter Fracture type: closed Fracture morphology: other fracture Fracture healing: with routine healing Qualified Code(s): S32.19XD - Other fracture of sacrum, subsequent encounter for fracture with routine healing (3) Anemia Current Visit: Yes Status: Suspected Assessment and plan: She is anaemic clinically, her latest Hb 7.8% Her serum Iron profile is on lower range. Stool for occult blood negative B12 level is normal Blood MCV : 104 She is on iron theraphy and we are working on it . Qualifiers: Anemia type: other cause Other causes of anemia: chronic disease, other Qualified Code(s): D63.8 - Anemia in other chronic diseases classified elsewhere (4) Hypotension Current Visit: Yes Status: Resolved Assessment and plan: Her SBP at Ed was 80 even though she is known case of HTN under infusion BP has improved with fluid Recent BP is 145/65 Qualifiers: Hypotension type: unspecified hypotension type Qualified Code(s): I95.9 - Hypotension, unspecified (5) Multiple myeloma Current Visit: Yes Status: Suspected Qualifiers: Multiple myeloma remission status: unspecified Qualified Code(s): C90.00 - Multiple myeloma not having achieved remission - Subjective Interval history: Today is 3rd day of reported to hospital . She is 83-year-old female with PMH of HTN, CAD,hypothyroidism, admitted via ED for "lethargy" and generalized weakness for couple of days . There is been a large weight loss roughly 10-20 pounds over the past couple months. She was hypotensive with systolic blood pressure in the mid 80s in ER visit.The patient has h/o low back pain for long time and has siatica on and off in her right limb currently on chronic pain medicines and has had increase her dose over the course of the past few days and weeks secondary to the large amount of pain she is expressing her back. The patient denies any complaints at this time including cough, fever, abdominal pain, nausea, vomiting, diarrhea, dysuria, but she has Constipation.The patient states that she has been eating and drinking well e. The patient is dry mucous members on evaluation. Systolic blood pressure in route was noted to be mid 80s at ED, but her blood pressure has improved .She feels a little bit improved , but her low back pain is still there. The level of pain 3-4/10 at rest and aggravates with ambulation especially during walking She admits right lower limb numbness and tingling.Recent CAT scan Pelvis : sacral insufficiency fracture, left renal cyst without any change . She had done dexa-scan couple of years ago and had osteoporosis Her Vitals today : BP 171/64 pulse 71 , afebrile.Her urine routine : pus cell 5-15/HPF , her serum Calcium 8.0, alkaline phosphatage 157.We have order serum protein electrophoresis as a work up for Multiple myeloma. MRI L- spine done on 05/30/2018 : post spinal fusion of L4-L5 , neural foraminal stenosis L3-L4 , degenerative changes - Constitutional Vitals: Temp Pulse Resp BP Pulse Ox 98.7 F 75 18 145/65 94 06/05/18 07:38 06/05/18 07:38 06/05/18 07:38 06/05/18 07:38 06/05/18 07:38 General appearance: Present: A&O X 3, no acute distress, underweight, answers questions appropriately - Head Head exam: Present: atraumatic, normal inspection, normocephalic - Neck Neck exam general surgery: Present: supple (No JVD) - Respiratory Additional comments: Normal chest expansion, equal air entry, no rales and rhonchi noted - Cardiovascular Additional comments: Normal rate and rhythm, no murmur , rub or other added sound noted - GI/Abdominal Additional comments: Soft , warm , not distended, BS +, no organomegaly, no mass, no visible pulsation. - Back Exam Additional comments: Moderate tenderness in right lower lumbar spinal region L2-3 L4-5 and upper sacral region, SLRT weakly positive in right side, muscle strength , bulk, reflexes , planter all normal - Psychiatric Psychiatric exam: Present: anxious, normal affect, normal mood Internal Medicine: Result - Labs CBC & Chem 7: 06/03/18 13:19 06/03/18 13:19 - ABG Interpretation ABG results: PT/INR, D-dimer PT 11.8 Seconds (9.4-12.1) 06/03/18 13:19 Consult Discharge Plan - Plan Referrals: Dayana Ellis MD [Primary Care Provider] - <Leodan Coats - Last Filed: 06/05/18 19:19> Date of Encounter: 06/05/18 - Assessment and plan (1) Sacral fracture Current Visit: Yes Status: Acute Qualifiers: Encounter type: subsequent encounter Fracture type: closed Fracture morphology: other fracture Fracture healing: with routine healing Qualified Code(s): S32.19XD - Other fracture of sacrum, subsequent encounter for fracture with routine healing (2) Anemia Current Visit: Yes Status: Suspected Qualifiers: Anemia type: other cause Other causes of anemia: chronic disease, other Qualified Code(s): D63.8 - Anemia in other chronic diseases classified elsewhere (3) Hypotension Current Visit: Yes Status: Resolved Qualifiers: Hypotension type: unspecified hypotension type Qualified Code(s): I95.9 - Hypotension, unspecified (4) Vitamin B12 deficiency (dietary) anemia Current Visit: Yes Status: Chronic (5) Coronary artery disease Current Visit: No Status: Chronic Qualifiers: Coronary Disease-Associated Artery/Lesion type: [place] artery [place] vs. transplanted heart: [place] heart Associated angina: without angina Qualified Code(s): I25.10 - Atherosclerotic heart disease of [place] coronary artery without angina pectoris (6) Essential hypertension Current Visit: No Status: Chronic (7) Hypothyroid Current Visit: No Status: Chronic Qualifiers: Hypothyroidism type: acquired Qualified Code(s): E03.9 - Hypothyroidism, unspecified (8) Multiple myeloma Current Visit: Yes Status: Suspected Qualifiers: Multiple myeloma remission status: unspecified Qualified Code(s): C90.00 - Multiple myeloma not having achieved remission - Constitutional Vitals: Temp Pulse Resp BP Pulse Ox 98.5 F 81 17 135/59 93 06/05/18 15:08 06/05/18 15:08 06/05/18 15:08 06/05/18 15:08 06/05/18 15:08 Internal Medicine: Result - Labs CBC & Chem 7: 06/03/18 13:19 06/03/18 13:19 - ABG Interpretation ABG results: PT/INR, D-dimer PT 11.8 Seconds (9.4-12.1) 06/03/18 13:19 - Attending Attestation I examined this patient and my medical decision-making was reviewed with the Resident Physician on 06/05/18. I agree with the documented findings, disposition and treatment plan as described except to the extent set forth below. Ms Mack is currently admitted for intractable back pain and weight loss. She remains moderate to high risk at this time. Ms Mack is still having pain especially with movement. No fever or chills. Does not feel as weak. No GI issues. Exam Alert Comfortable at rest Mucus membranes dry Heart reg No wheeze abd soft No edema I/P 1. Back pain - add Lidoderm patch 2. Awaiting work up for multiple myeloma Approved for SNF. If stable anticipate d/c in 1-2 days.
[2018-06-05 15:51] LABS: Thyroid Stimulating Hormone 2.952 mcIU/mL (0.340-5.600)
[2018-06-05] MEDS: Gabapentin 100 MG CAPSULE PO SCH (19:59)
[2018-06-06] MEDS: (Cyclosporine [Restasis] 1 DROP) OP SCH ×3 (00:04→20:52)
[2018-06-06 05:01] LABS: Hematocrit 26.1 % (35.3-44.9); Hemoglobin 8.4 g/dL (11.5-15.4); Mean Corpuscular HGB Conc 32.2 g/dL (31.6-35.5); Mean Corpuscular Hemoglobin 32.3 pg (28.0-33.3); Mean Corpuscular Volume 100.4 fL (83.0-100.0); Mean Platelet Volume 9.9 fL (9.4-12.4); Platelet Count 329 K/mcL (140-400); Red Cell Distribution Width 12.9 % (11.5-14.5)
[2018-06-06 05:17] LABS: Calcium 8.2 mg/dL (8.6-10.3); Magnesium 1.9 mg/dL (1.6-2.6); Potassium 3.5 mEq/L (3.5-5.1)
[2018-06-06] MEDS: *HR* Heparin 5,000 UNIT/ML VIAL SQ SCH ×2 (05:18→17:46)
[2018-06-06 09:50] LABS: Alpha 2 Globulin (PEP) 0.92 g/dL (0.48-1.05); Beta Globulin (PEP) 0.69 g/dL (0.48-1.10)
[2018-06-06] MEDS ORDERED: 0.9 % Sodium Chloride 500 ML IVC ONE (10:08)
--- NOTE | 2018-06-06 10:33 | Internal Med Progress Note ---
<Svitlana Castellanos P - Last Filed: 06/06/18 15:56> Hospitalist Progress Note - Encounter Date of Encounter: 06/06/18 Time of Encounter: 11:00 - Subjective Interval History: Today is 4th day of reported to hospital . She is 83-year-old female with PMH of HTN, CAD,hypothyroidism, admitted via ED for "lethargy" and generalized weakness for couple of days . There has been a large weight loss roughly 10- 20 pounds over the past couple months.The patient has h/o low back pain for long time and has siatica on and off in her right limb currently on chronic pain medicines and has had increase her dose over the course of the past few days and weeks secondary to the large amount of pain she is expressing her back. The patient denies any complaints at this time including cough, fever, abdominal pain, nausea, vomiting, diarrhea, dysuria, but she has Constipation.The patient states that she has been eating and drinking well e. The patient is dry mucous members on evaluation. Systolic blood pressure in route was noted to be mid 80s at ED, but her blood pressure has improved .She feels a little bit improved , but her low back pain is still there. The level of pain 3-4/10 at rest and aggravates with ambulation especially during walking She admits right lower limb numbness and tingling.Recent CAT scan Pelvis : sacral insufficiency fracture, left renal cyst without any change . She had done dexa-scan couple of years ago and had osteoporosis Her Vitals today : BP 157/57 pulse95 , afebrile.Her urine routine : pus cell 5-15/HPF , her serum Calcium 8.0, alkaline phosphatage 157.We have order serum protein electrophoresis as a work up for Multiple myeloma. MRI L- spine done on 2017 : post spinal fusion of L4-L5 , neural foraminal stenosis L3-L4 , degenerative changes . She is feeling well today, she states that nacrcotic patch on the back has worked her pain, she has 4/10 pain when she tries to ambulate . She is planning to go to Rehab center. Today her serum creatinine level went up from 1.15 to 1.31 and BUN 18 to 27 . 500 ml 0.9% NS bolus ordered and we will recheck her BMP this afternoon. Her latest BUN: 27 and creatinine 138. We will monitor again tomorrow. - Exam Vitals: Temp Pulse Resp BP Pulse Ox 98.4 F 71 16 157/57 95 06/06/18 07:00 06/06/18 07:00 06/06/18 07:00 06/06/18 07:00 06/06/18 07:00 Exam: General appearance: Present: A&O X 3, no acute distress, underweight, answers questions appropriately - Head Head exam: Present: atraumatic, normal inspection, normocephalic - Neck Neck exam general surgery: Present: normal inspection, supple - Respiratory Additional comments: Normal chest expansion both side, equal air entry ,no rales and rhonchi - Cardiovascular Additional comments: Normal rate and rhythm, no murmur, no added sound - GI/Abdominal Additional comments: Soft, warm, not distended, no organomegaly , no mass and pulsation. - Extremities Exam Additional comments: No calf swelling , pedal edema, Motor stength, sensation,muscle bulk, reflexes are normal in both lower extremities - Back Exam Additional comments: Moderate tenderness at right lower back side at the level of L4-5 and right SI joint , upper sacral area , no pressure sores noted, no saddle area anaesthesia noted, - Neurological Exam Neurological exam: Present: alert, CN II-XII intact, oriented X3, reflexes normal, no focal deficits, strengths equal and symetr throughout - Assessment and Plan (1) Generalized weakness Current Visit: Yes Status: Acute Assessment and Plan: She has improved much after admission Her appetite has been improved . (2) Sacral fracture Current Visit: Yes Status: Acute Assessment and Plan: She has sacral insufficency fracture on last CT abdomen pelvis She is known case of osteoporosis (3) Anemia Current Visit: Yes Status: Suspected Assessment and Plan: She has impaired iron profile She is on B12 supplementation Her last HB 8.4 increased from 7.8 and HCT 26 (4) Hypotension Current Visit: Yes Status: Resolved Assessment and Plan: Her blood pressure has been stabilized gradually Her latest BP 157/57 She is on Lisinopril (5) Multiple myeloma Current Visit: Yes Status: Suspected - Time Spent with Patient Total time spent is greater than 50% in coordination of care (as documented) at patient's floor/unit and/or counseling patient: Internal Medicine: Result - Labs CBC & Chem 7: 06/06/18 04:40 06/06/18 12:43 Labs: Short CBC 06/06/18 Range/Units 04:40 WBC 9.6 (4.3-11.1) K/mcL Hgb 8.4 L (11.5-15.4) g/dL Hct 26.1 L (35.3-44.9) % Plt Count 329 (140-400) K/mcL BMP 06/06/18 04:40 Sodium 139 Potassium 3.5 Chloride 109 H Carbon Dioxide 24 BUN 27 H Creatinine 1.31 H Glucose 103 Calcium 8.2 L - ABG Interpretation ABG results: PT/INR, D-dimer PT 11.8 Seconds (9.4-12.1) 06/03/18 13:19 Consult Discharge Plan - Plan Referrals: Dayana Ellis MD [Primary Care Provider] - <Leodan Coats - Last Filed: 06/06/18 19:58> Hospitalist Progress Note - Encounter Date of Encounter: 06/06/18 - Exam Vitals: Temp Pulse Resp BP Pulse Ox 98 F 79 17 157/54 94 06/06/18 16:08 06/06/18 16:08 06/06/18 16:08 06/06/18 16:08 06/06/18 16:08 - Assessment and Plan (1) Acute renal failure Current Visit: Yes Status: Suspected Assessment and Plan: IV fluids. ADRIAN on hold. (2) Anemia Current Visit: Yes Status: Suspected (3) Hypotension Current Visit: Yes Status: Resolved (4) Generalized weakness Current Visit: Yes Status: Acute (5) Sacral fracture Current Visit: Yes Status: Acute (6) Multiple myeloma Current Visit: Yes Status: Suspected - Time Spent with Patient Total time spent is greater than 50% in coordination of care (as documented) at patient's floor/unit and/or counseling patient: Internal Medicine: Result - Labs CBC & Chem 7: 06/06/18 04:40 06/06/18 12:43 Labs: Short CBC 06/06/18 Range/Units 04:40 WBC 9.6 (4.3-11.1) K/mcL Hgb 8.4 L (11.5-15.4) g/dL Hct 26.1 L (35.3-44.9) % Plt Count 329 (140-400) K/mcL BMP 06/06/18 06/06/18 04:40 12:43 Sodium 139 139 Potassium 3.5 3.7 Chloride 109 H 111 H Carbon Dioxide 24 23 BUN 27 H 27 H Creatinine 1.31 H 1.38 H Glucose 103 125 H Calcium 8.2 L 7.8 L - ABG Interpretation ABG results: PT/INR, D-dimer PT 11.8 Seconds (9.4-12.1) 06/03/18 13:19 - Attending Attestation I examined this patient and my medical decision-making was reviewed with the Resident Physician on 06/06/18. I agree with the documented findings, disposition and treatment plan as described except to the extent set forth below. Ms Mack is currently admitted for acute sacral fracture and anemia. She has developed ALLIE. She remains moderate to high risk due to potential for worsening clinical status. Ms Mack is doing OK. Pain is slowly improving. No fever or chills. Creatinine has increased today. No GI issues. Exam alert Comfortable Mucus membranes dry Heart reg No wheeze Abd soft I/P 1. Intractable pain 2. ALLIE most likely ATN Further diagnoses and plan as above Expect D/C tomorrow if creatinine improves. <Svitlana Castellanos P - Last Filed: 06/06/18 15:56> (2) Sacral fracture Qualifiers: Encounter type: subsequent encounter Fracture type: closed Fracture morphology: other fracture Fracture healing: with routine healing Qualified Code(s): S32.19XD - Other fracture of sacrum, subsequent encounter for fracture with routine healing (3) Anemia Qualifiers: Anemia type: other cause Other causes of anemia: chronic disease, other Qualified Code(s): D63.8 - Anemia in other chronic diseases classified elsewhere (4) Hypotension Qualifiers: Hypotension type: unspecified hypotension type Qualified Code(s): I95.9 - Hypotension, unspecified (5) Multiple myeloma Qualifiers: Multiple myeloma remission status: unspecified Qualified Code(s): C90.00 - Multiple myeloma not having achieved remission <Leodan Coats - Last Filed: 06/06/18 19:58> (1) Acute renal failure Qualifiers: Acute renal failure type: with acute tubular necrosis Qualified Code(s): N17.0 - Acute kidney failure with tubular necrosis (2) Anemia Qualifiers: Anemia type: other cause Other causes of anemia: chronic disease, other Qualified Code(s): D63.8 - Anemia in other chronic diseases classified elsewhere (3) Hypotension Qualifiers: Hypotension type: unspecified hypotension type Qualified Code(s): I95.9 - Hypotension, unspecified (5) Sacral fracture Qualifiers: Encounter type: subsequent encounter Fracture type: closed Fracture morphology: other fracture Fracture healing: with routine healing Qualified Code(s): S32.19XD - Other fracture of sacrum, subsequent encounter for fracture with routine healing (6) Multiple myeloma Qualifiers: Multiple myeloma remission status: unspecified Qualified Code(s): C90.00 - Multiple myeloma not having achieved remission
[2018-06-06] MEDS: Sennosides 8.6 MG TABLET PO SCH (10:39)
[2018-06-06] MEDS: Cyanocobalamin (B-12) 1,000 MCG TABLET PO SCH (10:39)
[2018-06-06] MEDS: Aspirin Enteric Coated 81 MG Tablet PO SCH (10:40)
[2018-06-06] MEDS: methylPREDNISolone 4 MG TABLET PO SCH ×2 (10:40→17:45)
[2018-06-06] MEDS: Lisinopril 20 MG TABLET PO SCH (10:41)
[2018-06-06] MEDS: tiZANidine 4 MG TABLET PO PRN ×2 (10:46→22:38)
[2018-06-06] MEDS: traMADol 50 MG TABLET PO PRN (10:46)
[2018-06-06 13:41] LABS: Calcium 7.8 mg/dL (8.6-10.3); Potassium 3.7 mEq/L (3.5-5.1)
[2018-06-06 14:20] LABS: IFE Reflexed NOT DONE
[2018-06-06] MEDS ORDERED: 0.9 % Sodium Chloride 1,000 ML IVC SCH (15:15)
[2018-06-06] MEDS: *HR* OxyCODONE/APAP 10/325 TABLET PO PRN (17:46)
[2018-06-06] MEDS: Gabapentin 100 MG CAPSULE PO SCH (19:57)
[2018-06-07 03:19] LABS: Hematocrit 23.1 % (35.3-44.9); Hemoglobin 7.3 g/dL (11.5-15.4); Mean Corpuscular HGB Conc 31.6 g/dL (31.6-35.5); Mean Corpuscular Hemoglobin 32.3 pg (28.0-33.3); Mean Corpuscular Volume 102.2 fL (83.0-100.0); Mean Platelet Volume 10.2 fL (9.4-12.4); Platelet Count 283 K/mcL (140-400); Red Blood Count 2.26 M/mcL (3.82-4.97); Red Cell Distribution Width 12.8 % (11.5-14.5)
[2018-06-07 03:38] LABS: Calcium 7.8 mg/dL (8.6-10.3); Potassium 3.9 mEq/L (3.5-5.1)
[2018-06-07] MEDS: *HR* Heparin 5,000 UNIT/ML VIAL SQ SCH (05:46)
[2018-06-07 06:54] VITALS: BP 173/60
[2018-06-07] MEDS: methylPREDNISolone 4 MG TABLET PO SCH (08:37)
[2018-06-07] MEDS: Cyanocobalamin (B-12) 1,000 MCG TABLET PO SCH (08:37)
[2018-06-07] MEDS: Aspirin Enteric Coated 81 MG Tablet PO SCH (08:37)
[2018-06-07] MEDS: Sennosides 8.6 MG TABLET PO SCH (08:37)
[2018-06-07] MEDS: Lisinopril 20 MG TABLET PO SCH (08:38)
[2018-06-07] MEDS: (Cyclosporine [Restasis] 1 DROP) OP SCH (08:39)
[2018-06-07] MEDS ORDERED: Iron Sucrose Complex 400 MG in 0.9 % Sodium Chloride 250 ML IVPB ONE (10:36)
--- NOTE | 2018-06-07 10:37 | Discharge Summary ---
- NOTES TO OUTPATIENT PROVIDER Notes to Outpatient Provider: Ms Mack has been admitted for intractable back pain. She has improved enough to walk around better. Her hemoglobin has been low and consistent with combined B12 and iron deficiency. She has had GI work up in past which was negative. She was given dose of IV iron today prior to discharge. Date of Encounter: 06/07/18 Time of Encounter: 10:35 - Discharge Diagnosis (1) Acute renal failure Priority: Secondary Status: Suspected Qualifiers: Acute renal failure type: with acute tubular necrosis Qualified Code(s): N17.0 - Acute kidney failure with tubular necrosis (2) Anemia Priority: Secondary Status: Suspected Qualifiers: Anemia type: other cause Other causes of anemia: chronic disease, other Qualified Code(s): D63.8 - Anemia in other chronic diseases classified elsewhere (3) Hypotension Priority: Secondary Status: Resolved Qualifiers: Hypotension type: unspecified hypotension type Qualified Code(s): I95.9 - Hypotension, unspecified (4) Generalized weakness Priority: Secondary Status: Chronic (5) Sacral fracture Priority: Primary Status: Acute Qualifiers: Encounter type: subsequent encounter Fracture type: closed Fracture morphology: other fracture Fracture healing: with routine healing Qualified Code(s): S32.19XD - Other fracture of sacrum, subsequent encounter for fracture with routine healing (6) Vitamin B12 deficiency (dietary) anemia Priority: Secondary Status: Chronic (7) Coronary artery disease Priority: Secondary Status: Chronic Qualifiers: Coronary Disease-Associated Artery/Lesion type: [place] artery [place] vs. transplanted heart: [place] heart Associated angina: without angina Qualified Code(s): I25.10 - Atherosclerotic heart disease of [place] coronary artery without angina pectoris (8) Essential hypertension Priority: Secondary Status: Chronic (9) Hypothyroidism Priority: Secondary Status: Chronic Qualifiers: Hypothyroidism type: acquired Qualified Code(s): E03.9 - Hypothyroidism, unspecified (10) Iron deficiency anemia due to dietary causes Priority: Secondary Status: Chronic (11) CKD (chronic kidney disease) stage 3, GFR 30-59 ml/min Priority: Secondary Status: Suspected Hospital course: Ms. Mack is a 83 year old female with hx of chronic back pain, anemia and weight loss presented to ED with severe back pain. She was evaluated and subsequently admitted. Ms Mack was admitted to [facility] for back pain, weakness and weight loss. She was started on pain medications, steroids and muscle relaxants. She initially did not have much improvement in her symptoms. Labs were sent for concern of multiple myeloma. She was evaluated by PT/OT and SNF recommended. Lidoderm patch was added and she had some improvement in her symptoms. Her SPEP was negative for monoclonal spike - urine bence kulkarni protein is pending. She was anemic and has hx of B12, folate and iron deficiency. She was guiac negative and had GI work up in 03/14 which was negative. She was hypotensive prior to arrival and at admission which improved with IV fluids. As a result her renal function has worsened but has been stable last 24 hours. She did receive additional fluid without much improvement. Today she is afebrile. She is eating more and pain is fairly controlled. Her H /H is low and she was given IV iron prior to discharge. She will need to have H/H and renal function monitored and encourage PO fluids. She is ready for discharge to SNF. Discharge discussed with: patient - Time Spent with Patient Total time spent providing and/or coordinating discharge services: 42min - Discharge Medications Prescriptions: Ferrous Sulfate 325 mg PO BIDWM #6 tablet Folic Acid 1 mg PO DAILY #4 tablet OxyCODONE/APAP 10/325 [Percocet 10/325 MG] 1 tab PO TID PRN 2 Days #7 tablet PRN Reason: Pain Tramadol HCl [Ultram] 50 mg PO Q6H PRN 2 Days #7 tablet PRN Reason: Moderate Pain Home Medications: Aspirin Enteric Coated [Aspirin EC] 81 mg PO DAILY 06/03/18 [History] Citalopram Hydrobromide [Citalopram HBr] 10 mg PO DAILY 06/03/18 [History] Cyanocobalamin (Vitamin B-12) [Vitamin B-12] 1,000 mcg PO DAILY 06/03/18 [ History] Cyclosporine [Restasis] 1 drop BOTH EYES BID 06/03/18 [History] Docusate [Colace] 100 mg PO BID 06/03/18 [History] Levothyroxine Sodium 50 mcg PO DAILY 06/03/18 [History] Lisinopril [Zestril] 20 mg PO DAILY 06/03/18 [History] Meclizine HCl [Verticalm] 25 mg PO DAILY PRN 06/03/18 [History] Nitroglycerin [Nitrostat] 0.4 mg SL Q5MIN PRN 06/03/18 [History] Omeprazole [PriLOSEC] 20 mg PO BID 06/03/18 [History] Sennosides [Senna] 8.6 mg PO DAILY 06/03/18 [History] Tizanidine HCl 4 mg PO TID PRN 06/03/18 [History] Ferrous Sulfate 325 mg PO BIDWM #6 tablet 06/07/18 [Rx] Folic Acid 1 mg PO DAILY #4 tablet 06/07/18 [Rx] Gabapentin [Neurontin] 100 mg PO HS #0 06/07/18 [Rx] Lidocaine Patch [Lidoderm 5% patch] 1 each TP DAILY adh..patch 06/07/18 [Rx] OxyCODONE/APAP 10/325 [Percocet 10/325 MG] 1 tab PO TID PRN 2 Days #7 tablet 09/14 [Rx] Tramadol HCl [Ultram] 50 mg PO Q6H PRN 2 Days #7 tablet 06/07/18 [Rx] methylPREDNISolone [Medrol] 4 mg PO DAILY 5 Days tablet 06/07/18 [Rx] Allergies/Adverse Reactions: 3 Allergy/AdvReac Type Severity Reaction Status Date / Time Sulfa (Sulfonamide Allergy Hives Verified 04/04/18 20:20 Antibiotics) dicyclomine [From Bentyl] AdvReac Vomiting Verified 04/04/18 20:20 Date of admission: 06/03/18 15:12 Primary care physician: Dayana Ellis Consults: 06/03/18 20:56 Consult to Physical Therapy [CONS] Routine Comment: Evaluate, develop and implement POC Reason for Consult: deconditioning and sacral fx Does patient have active BEDREST order?: No Is patient medically & hemodynamically stable?: No Patient assessed for mobility or mobilized this visit?: No 06/03/18 20:57 Consult to Occupational Therapy [CONS] Routine Comment: Evaluate, develop and implement POC Reason for Consult: deconditoning and sacral fracture Does patient have active BEDREST order?: No Is patient medically & hemodynamically stable?: No Patient assessed for mobility or mobilized this visit?: No 06/04/18 13:26 Consult to Globe Cleaner [CONS] Routine Reason for SW Consult: PT/OT recommend SNF for rehab Discharging clinician: Leodan Coats Anticipated date of discharge: 06/07/18 - Constitutional Vitals: Temp Pulse Resp BP Pulse Ox 98.0 F 65 16 173/60 99 06/07/18 06:45 06/07/18 04:00 06/07/18 06:45 06/07/18 06:45 06/07/18 06:45 General appearance: Present: A&O X 3, underweight, answers questions appropriately - Head Head exam: Present: atraumatic, normocephalic - Eye Eye exam: Present: conjuntiva pink - ENT ENT exam: Present: mucous membranes moist - Respiratory Respiratory exam: Present: CTAB. Absent: rales, rhonchi, wheezes - Cardiovascular Cardiovascular exam: Present: RRR. Absent: tachycardia - GI/Abdominal GI/Abdominal exam: Present: soft. Absent: tenderness - Extremities Exam Extremities exam: Present: warm. Absent: mottling - Neurological Exam Neurological exam: Present: alert, oriented X3 - Skin Skin exam: Present: dry, warm - Patient Status Disposition: Transfer SNF Condition: Fair Functional capacity at discharge: uses cane/walker Overall status at discharge: patient is progressing back to baseline - Discharge Instructions Follow Up With: Dayana Ellis MD [Primary Care Provider] - - Diet and Activity Activity: as per physical therapy, increase activity as tolerated Diet: advance to your usual diet
--- NOTE | 2018-06-07 11:26 | Physician Discharge Referral ---
ExtendedCare Referral Info Provider in Charge after Transfer: PCP Institutional Level of Care: Skilled - Diagnosis (1) Acute renal failure Priority: Secondary Status: Suspected (2) Anemia Priority: Secondary Status: Suspected (3) Hypotension Priority: Secondary Status: Resolved (4) Generalized weakness Priority: Secondary Status: Chronic (5) Sacral fracture Priority: Primary Status: Acute (6) Vitamin B12 deficiency (dietary) anemia Priority: Secondary Status: Chronic (7) Coronary artery disease Priority: Secondary Status: Chronic (8) Essential hypertension Priority: Secondary Status: Chronic (9) Hypothyroidism Priority: Secondary Status: Chronic (10) Iron deficiency anemia due to dietary causes Priority: Secondary Status: Chronic (11) CKD (chronic kidney disease) stage 3, GFR 30-59 ml/min Priority: Secondary Status: Suspected Expected Duration of Placement: Less than 30 days Prognosis: Fair Aware of Diagnosis: Patient, Family Aware of Prognosis: Patient, Family - Transfer Medications Prescriptions: Ferrous Sulfate 325 mg PO BIDWM #6 tablet Folic Acid 1 mg PO DAILY #4 tablet OxyCODONE/APAP 10/325 [Percocet 10/325 MG] 1 tab PO TID PRN 2 Days #7 tablet PRN Reason: Pain Tramadol HCl [Ultram] 50 mg PO Q6H PRN 2 Days #7 tablet PRN Reason: Moderate Pain Home Medications: Aspirin Enteric Coated [Aspirin EC] 81 mg PO DAILY 06/03/18 [History] Citalopram Hydrobromide [Citalopram HBr] 10 mg PO DAILY 06/03/18 [History] Cyanocobalamin (Vitamin B-12) [Vitamin B-12] 1,000 mcg PO DAILY 06/03/18 [ History] Cyclosporine [Restasis] 1 drop BOTH EYES BID 06/03/18 [History] Docusate [Colace] 100 mg PO BID 06/03/18 [History] Levothyroxine Sodium 50 mcg PO DAILY 06/03/18 [History] Lisinopril [Zestril] 20 mg PO DAILY 06/03/18 [History] Meclizine HCl [Verticalm] 25 mg PO DAILY PRN 06/03/18 [History] Nitroglycerin [Nitrostat] 0.4 mg SL Q5MIN PRN 06/03/18 [History] Omeprazole [PriLOSEC] 20 mg PO BID 06/03/18 [History] Sennosides [Senna] 8.6 mg PO DAILY 06/03/18 [History] Tizanidine HCl 4 mg PO TID PRN 06/03/18 [History] Ferrous Sulfate 325 mg PO BIDWM #6 tablet 06/07/18 [Rx] Folic Acid 1 mg PO DAILY #4 tablet 06/07/18 [Rx] Gabapentin [Neurontin] 100 mg PO HS #0 06/07/18 [Rx] Lidocaine Patch [Lidoderm 5% patch] 1 each TP DAILY adh..patch 06/07/18 [Rx] OxyCODONE/APAP 10/325 [Percocet 10/325 MG] 1 tab PO TID PRN 2 Days #7 tablet 09/14 [Rx] Tramadol HCl [Ultram] 50 mg PO Q6H PRN 2 Days #7 tablet 06/07/18 [Rx] methylPREDNISolone [Medrol] 4 mg PO DAILY 5 Days tablet 06/07/18 [Rx] Allergies/Adverse Reactions: 3 Allergy/AdvReac Type Severity Reaction Status Date / Time Sulfa (Sulfonamide Allergy Hives Verified 04/04/18 20:20 Antibiotics) dicyclomine [From Bentyl] AdvReac Vomiting Verified 04/04/18 20:20 - Respiratory Orders None Smoking Cessation: Smoking cessation has been advised. For more information, call the [place] Tobacco Quit Line at 1-097-ZKRZ-NOW. - Lab Orders Lab Orders: 2 Step [place] Test per State regulation, CBC, Manuel 17 (Please monitor renal function and H/H routinely.) - Ancillary Orders May use pressure relief devices daily prn, May go on ANNA w/family/respon libertarian w /meds at nurse discretion PRN, May consult with Dentist, Door Operator, Process Development Chemist PRN - Advance Directives Code Status: Full Code - Mobility Orders Ambulate - Rehabiliation Orders Rehab Potential: Fair Rehab Orders: Evaluation for Physical Therapy, Evaluation for Occupational Therapy - Treatments Skin tear care topically daily PRN per policy, May check for fecal impaction rectally daily PRN, Fleet enema rectally every other day PRN cleansing purposes - Diet Orders No Added Salt (JARROD), Cardiac (OK to encourage fluids for renal function) CERTIFICATION: I certify that the transfer of the above named patient to an Extended Care Facility is necessary for the continuing treatment of the diagnosis listed. The above information is true and accurate reflection of patient's current condition. Confidential - Redisclosure prohibited without a patient's written consent.
[2018-06-07] MEDS: traMADol 50 MG TABLET PO PRN (12:48)
== END 2018-06-07 16:51 ==
LOC: EMEROO 11:45 → 2NENU 11:45 → SUATTDRO 15:12 → 2NENU 16:19
PROVIDERS: ADMIT Internal Medicine; ATTEND Internal Medicine

== ENCOUNTER 2019-11-09 12:17 | Observation (INO) ==
[2019-11-09 13:36] LABS: Basophils % 0.3 %; Eosinophils # 0.1 K/mcL (0.0-0.6); Eosinophils % 1.4 %; Hematocrit 35.3 % (35.3-44.9); Immature Granulocytes % 0.2 % (0-4); Lymphocytes # 2.2 K/mcL (0.6-4.6); Lymphocytes % 23.4 %; Mean Corpuscular HGB Conc 31.2 g/dL (31.6-35.5); Mean Corpuscular Hemoglobin 36.3 pg (28.0-33.3); Mean Corpuscular Volume 116.5 fL (83.0-100.0); Mean Platelet Volume 11.4 fL (9.4-12.4); Monocytes # 0.5 K/mcL (0.0-1.3); Monocytes % 5.8 %; Neutrophils # 6.4 K/mcL (1.6-8.9); Platelet Count 165 K/mcL (140-400); Red Blood Count 3.03 M/mcL (3.82-4.97); Red Cell Distribution Width 12.2 % (11.5-14.5); Segmented Neutrophils % 68.9 %; White Blood Count 9.3 K/mcL (4.3-11.1)
[2019-11-09 14:03] LABS: BUN/Creatinine Ratio 26 (6-26); Blood Urea Nitrogen 27 mg/dL (8-23); Calcium 8.9 mg/dL (8.6-10.3); Carbon Dioxide 26 mEq/L (23-29); Chloride 105 mEq/L (98-107); Glucose 134 mg/dL (70-105); Magnesium 2.2 mg/dL (1.6-2.6); Osmolality,Calculated 303 (280-300); Potassium 4.5 mEq/L (3.5-5.1); Sodium 143 mEq/L (136-145); Thyroid Stimulating Hormone 1.764 mcIU/mL (0.340-5.600); Troponin I < 0.03 ng/mL (< 0.04); eGFR For African Americans > 60 (> 60); eGFR For Non-African Americans 51 (> 60)
[2019-11-09 14:12] LABS: Macrocytosis Present (Not Present); Platelet Estimate Normal (Normal)
[2019-11-09 14:40] LABS: Bilirubin,Urine Negative (Negative); Blood,Urine Negative (Negative); Clarity,Urine Clear (Clear); Color,Urine Yellow (Yellow); Glucose,Urine (UA) Normal (Normal); Ketones,Urine Negative (Negative); Leukocyte Esterase,Urine Small (Negative); Nitrite,Urine Negative (Negative); Protein,Urine 30 mg/dL (Neg-Trace); Specific Gravity,Urine 1.024 (1.010-1.025); Urobilinogen,Urine Normal (Normal)
[2019-11-09 14:42] LABS: Bacteria,Urine None Seen per hpf (None-Few); Hyaline Casts,Urine None Seen per lpf (None-Few); RBC,Urine 0-3 per hpf (0-3); Squamous Epithelial Cell,Urine Many per lpf (None-Few)
[2019-11-09] MEDS ORDERED: amLODIPine 5 MG TABLET PO ONE (15:10)
[2019-11-09] MEDS ORDERED: Naloxone 0.4 MG/ML INJ IVP PRN (15:44)
[2019-11-09] MEDS ORDERED: Nitroglycerin 0.4 MG TAB.SUBL SL PRN (15:46)
[2019-11-09] MEDS ORDERED: Lactulose Oral Soln 20 GM/30 ML UDC PO PRN (15:46)
[2019-11-09] MEDS ORDERED: Ondansetron ODT 4 MG TAB.RAPDIS SL PRN (15:46)
[2019-11-09] MEDS ORDERED: *HR* FentaNYL PATCH 25 MCG PATCH TD SCH (16:00)
[2019-11-09] MEDS: Artificial Tears SOLN 15 ML BOTTLE BOTH EYES SCH (18:14)
[2019-11-09] MEDS: TOBRAMYCIN BOTH EYES SCH (19:55)
[2019-11-09] MEDS: DEXAMETHASONE BOTH EYES SCH (19:55)
[2019-11-09] MEDS: *HR* OxyCODONE/APAP 5/325 TABLET PO PRN (22:31)
[2019-11-10 05:01] LABS: Basophils % 0.2 %; Eosinophils # 0.1 K/mcL (0.0-0.6); Eosinophils % 1.5 %; Hematocrit 32.1 % (35.3-44.9); Hemoglobin 10.3 g/dL (11.5-15.4); Immature Granulocytes % 0.2 % (0-4); Lymphocytes # 2.9 K/mcL (0.6-4.6); Lymphocytes % 35.8 %; Mean Corpuscular HGB Conc 32.1 g/dL (31.6-35.5); Mean Corpuscular Hemoglobin 35.5 pg (28.0-33.3); Mean Corpuscular Volume 110.7 fL (83.0-100.0); Mean Platelet Volume 10.9 fL (9.4-12.4); Monocytes # 0.5 K/mcL (0.0-1.3); Monocytes % 5.9 %; Platelet Count 161 K/mcL (140-400); Red Cell Distribution Width 12.2 % (11.5-14.5); Segmented Neutrophils % 56.4 %; White Blood Count 8.1 K/mcL (4.3-11.1)
[2019-11-10 05:18] LABS: Neutrophils # 4.6 K/mcL (1.6-8.9)
[2019-11-10 05:35] LABS: % Iron Saturation 22 % (15-50); BUN/Creatinine Ratio 24 (6-26); Blood Urea Nitrogen 25 mg/dL (8-23); Carbon Dioxide 26 mEq/L (23-29); Chloride 108 mEq/L (98-107); Ferritin 274 ng/mL (10-120); Glucose 100 mg/dL (70-105); Iron 61 mcg/dL (50-170); Osmolality,Calculated 294 (280-300); Sodium 140 mEq/L (136-145); Transferrin 197 mg/dL (203-362); eGFR For African Americans > 60 (> 60); eGFR For Non-African Americans 51 (> 60)
[2019-11-10] MEDS: Levothyroxine 25 MCG TABLET PO SCH (06:08)
[2019-11-10 06:24] LABS: Macrocytosis Present (Not Present); Platelet Estimate Normal (Normal)
[2019-11-10] MEDS: Aspirin Enteric Coated 81 MG Tablet PO SCH (08:28)
[2019-11-10] MEDS: Metoprolol XL (24 HR) Succ 50 MG TAB.ER.24H PO SCH (08:28)
[2019-11-10] MEDS: Cyanocobalamin (B-12) 1,000 MCG TABLET PO SCH (08:28)
[2019-11-10] MEDS: *HR* OxyCODONE/APAP 5/325 TABLET PO PRN ×2 (08:31→19:25)
[2019-11-10] MEDS: Artificial Tears SOLN 15 ML BOTTLE BOTH EYES SCH ×2 (08:33→17:02)
[2019-11-10] MEDS ORDERED: CYCLOSPORINE BOTH EYES SCH (09:00)
[2019-11-10] MEDS ORDERED: Lisinopril 20 MG TABLET PO SCH (09:00)
[2019-11-10] MEDS ORDERED: amLODIPine 5 MG TABLET PO SCH (09:00)
[2019-11-10] MEDS: cloNIDine HCl 0.1 MG TABLET PO SCH (17:02)
[2019-11-10] MEDS: DEXAMETHASONE BOTH EYES SCH (20:58)
[2019-11-10] MEDS: TOBRAMYCIN BOTH EYES SCH (20:58)
[2019-11-11] MEDS: cloNIDine HCl 0.1 MG TABLET PO SCH (05:52)
[2019-11-11 05:56] LABS: Hematocrit 27.5 % (35.3-44.9); Mean Corpuscular HGB Conc 32.7 g/dL (31.6-35.5); Mean Corpuscular Hemoglobin 35.9 pg (28.0-33.3); Mean Corpuscular Volume 109.6 fL (83.0-100.0); Mean Platelet Volume 11.1 fL (9.4-12.4); Platelet Count 148 K/mcL (140-400); Red Blood Count 2.51 M/mcL (3.82-4.97); Red Cell Distribution Width 12.2 % (11.5-14.5); White Blood Count 6.5 K/mcL (4.3-11.1)
[2019-11-11] MEDS: Levothyroxine 25 MCG TABLET PO SCH (06:06)
[2019-11-11 06:19] LABS: BUN/Creatinine Ratio 37 (6-26); Blood Urea Nitrogen 38 mg/dL (8-23); Calcium 8.7 mg/dL (8.6-10.3); Carbon Dioxide 28 mEq/L (23-29); Chloride 105 mEq/L (98-107); Glucose 120 mg/dL (70-105); Osmolality,Calculated 300 (280-300); Potassium 4.7 mEq/L (3.5-5.1); Sodium 140 mEq/L (136-145); eGFR For African Americans > 60 (> 60); eGFR For Non-African Americans 51 (> 60)
[2019-11-11] MEDS: Artificial Tears SOLN 15 ML BOTTLE BOTH EYES SCH ×2 (08:33→17:11)
[2019-11-11] MEDS: Aspirin Enteric Coated 81 MG Tablet PO SCH (08:36)
[2019-11-11] MEDS: Lisinopril 20 MG TABLET PO SCH (08:36)
[2019-11-11] MEDS: amLODIPine 5 MG TABLET PO SCH (08:36)
[2019-11-11] MEDS: Metoprolol XL (24 HR) Succ 50 MG TAB.ER.24H PO SCH (08:36)
[2019-11-11] MEDS: Cyanocobalamin (B-12) 1,000 MCG TABLET PO SCH (08:37)
[2019-11-11] MEDS: *HR* OxyCODONE/APAP 5/325 TABLET PO PRN ×2 (08:44→21:45)
[2019-11-11] MEDS ORDERED: hydroCHLOROthiazide 25 MG TABLET PO SCH (09:00)
[2019-11-11] MEDS: DEXAMETHASONE BOTH EYES SCH (21:37)
[2019-11-11] MEDS: TOBRAMYCIN BOTH EYES SCH (21:37)
[2019-11-12] MEDS: Levothyroxine 25 MCG TABLET PO SCH (05:12)
[2019-11-12 06:52] LABS: Hematocrit 30.7 % (35.3-44.9); Hemoglobin 9.8 g/dL (11.5-15.4); Mean Corpuscular HGB Conc 31.9 g/dL (31.6-35.5); Mean Corpuscular Hemoglobin 36.3 pg (28.0-33.3); Mean Corpuscular Volume 113.7 fL (83.0-100.0); Mean Platelet Volume 11.3 fL (9.4-12.4); Platelet Count 159 K/mcL (140-400); Red Cell Distribution Width 12.2 % (11.5-14.5); White Blood Count 8.6 K/mcL (4.3-11.1)
[2019-11-12 07:44] LABS: Calcium 8.9 mg/dL (8.6-10.3); Potassium 4.3 mEq/L (3.5-5.1)
[2019-11-12] MEDS: Metoprolol XL (24 HR) Succ 50 MG TAB.ER.24H PO SCH (08:39)
[2019-11-12] MEDS: Lisinopril 20 MG TABLET PO SCH (08:39)
[2019-11-12] MEDS: amLODIPine 5 MG TABLET PO SCH (08:39)
[2019-11-12] MEDS: Aspirin Enteric Coated 81 MG Tablet PO SCH (08:39)
[2019-11-12] MEDS: Cyanocobalamin (B-12) 1,000 MCG TABLET PO SCH (08:40)
[2019-11-12] MEDS: *HR* OxyCODONE/APAP 5/325 TABLET PO PRN (08:42)
[2019-11-12] MEDS: Artificial Tears SOLN 15 ML BOTTLE BOTH EYES SCH (08:47)
[2019-11-12 10:07] VITALS: BP 130/50
[2019-11-13 17:24] LABS: Metanephrine, Plasma 0.12 nmol/L (0.00-0.49)
== END 2019-11-12 11:52 | disposition home or self-care (01) ==
LOC: 3BNU 12:17 → EMEROOARM 12:17 → 3BNU 16:20
PROVIDERS: ADMIT Internal Medicine; ATTEND Internal Medicine

== ENCOUNTER 2020-03-14 08:59 | Inpatient (IN) ==
[2020-03-14] MEDS ORDERED: CeFAZolin Syr 2,000MG/20 ML 2,000 MG/20 ML SYRINGE IVPB ONE (09:24)
[2020-03-14] MEDS ORDERED: *HR* HYDROmorphone PF 0.5 MG/0.5 ML SYRINGE IVP PRN (09:52)
[2020-03-14] MEDS ORDERED: Ondansetron 4 MG/2 ML VIAL IVP ONE (09:52)
[2020-03-14] MEDS ORDERED: *HR* OxyCODONE Immed Rel 5 MG TABLET PO PRN (09:52)
[2020-03-14] MEDS ORDERED: *HR* Promethazine 25 MG/ML VIAL IVP PRN (09:52)
[2020-03-14] MEDS: Ringers Solution, Lactated 1,000 ML IVC SCH ×2 (10:24→13:20)
[2020-03-14] MEDS ORDERED: *HR* Midazolam HCl 2 MG/2 ML VIAL ONE (10:27)
[2020-03-14] MEDS ORDERED: Ropivacaine/PF 0.5% 30 ML VIAL ONE (10:28)
[2020-03-14] MEDS ORDERED: *HR* FentaNYL (PF) 100 MCG/2 ML VIAL ONE (10:28)
[2020-03-14] MEDS ORDERED: *HR* Succinylcholine 200 MG/10 ML VIAL IVP ONE (10:32)
[2020-03-14] MEDS ORDERED: Lidocaine -MPF 2% 2 ML VIAL ONE (10:32)
[2020-03-14] MEDS ORDERED: Ondansetron 4 MG/2 ML VIAL ONE (10:32)
[2020-03-14] MEDS ORDERED: *HR* Propofol 200 MG/20 ML VIAL IVP ONE (10:32)
[2020-03-14] MEDS ORDERED: Dexamethasone 4 MG/ML VIAL ONE (10:32)
[2020-03-14] MEDS ORDERED: Ethanol\\Acetic Acid\\Na Ace\\Ben 1,000 ML IRRIG.SOLN IR ONE (11:59)
[2020-03-14] MEDS ORDERED: Ringers Solution, Lactated 1,000 ML IVC SCH (14:30)
[2020-03-14] MEDS ORDERED: Dextrose Gel 15 GM/37.5 ML TUBE PO PRN ×2 (14:30)
[2020-03-14] MEDS ORDERED: Sennosides 8.6 MG TABLET PO PRN ×2 (14:30→16:01)
[2020-03-14] MEDS ORDERED: MOM Conc 10 ML UD.LIQ PO PRN (14:30)
[2020-03-14] MEDS ORDERED: *HR* OxyCODONE/APAP 5/325 TABLET PO PRN (14:30)
[2020-03-14] MEDS ORDERED: *HR* Dextrose 50 % in Water (Syg) 50 ML SYRINGE IVP PRN (14:30)
[2020-03-14] MEDS ORDERED: D5% in Water 1,000 ML IVC PRN (14:30)
[2020-03-14] MEDS: Insulin LISPRO 300 UNITS/3 ML VIAL SQ SCH ×3 (14:52→21:22)
[2020-03-14] MEDS ORDERED: Ondansetron ODT 4 MG TAB.RAPDIS SL PRN (16:01)
[2020-03-14] MEDS ORDERED: Lactulose Oral Soln 20 GM/30 ML UDC PO PRN (16:01)
[2020-03-14] MEDS ORDERED: *HR* FentaNYL PATCH 25 MCG PATCH TD SCH (16:15)
[2020-03-14] MEDS: *HR* OxyCODONE Immed Rel 5 MG TABLET PO PRN ×2 (17:47→21:53)
[2020-03-14] MEDS: CeFAZolin 2 GM/120 ML BAG IVPB SCH (17:50)
[2020-03-14] MEDS: tiZANidine 4 MG TABLET PO SCH (20:04)
[2020-03-15] MEDS: CeFAZolin 2 GM/120 ML BAG IVPB SCH (01:49)
[2020-03-15] MEDS: *HR* OxyCODONE Immed Rel 5 MG TABLET PO PRN ×3 (01:50→18:20)
[2020-03-15] MEDS: Ondansetron 4 MG/2 ML VIAL IVP PRN ×2 (01:56→08:42)
[2020-03-15 05:00] LABS: Hemoglobin 8.9 g/dL (11.5-15.4)
[2020-03-15 05:09] LABS: BUN/Creatinine Ratio 16 (6-26); Blood Urea Nitrogen 16 mg/dL (8-23); Calcium 8.7 mg/dL (8.6-10.3); Carbon Dioxide 26 mEq/L (23-29); Chloride 104 mEq/L (98-107); Glucose 149 mg/dL (70-105); Osmolality,Calculated 286 (280-300); Potassium 4.1 mEq/L (3.5-5.1); Sodium 136 mEq/L (136-145); eGFR For African Americans > 60 (> 60); eGFR For Non-African Americans 53 (> 60)
[2020-03-15] MEDS: Levothyroxine 25 MCG TABLET PO SCH (05:16)
[2020-03-15] MEDS: amLODIPine 5 MG TABLET PO SCH (08:42)
[2020-03-15] MEDS: tiZANidine 4 MG TABLET PO SCH ×3 (08:43→20:44)
[2020-03-15] MEDS: Cyanocobalamin (B-12) 1,000 MCG TABLET PO SCH (08:43)
[2020-03-15] MEDS: Aspirin Enteric Coated 81 MG Tablet PO SCH (08:43)
[2020-03-15] MEDS: Metoprolol XL (24 HR) Succ 50 MG TAB.ER.24H PO SCH (08:44)
[2020-03-15] MEDS: Insulin LISPRO 300 UNITS/3 ML VIAL SQ SCH ×4 (08:52→20:41)
[2020-03-15] MEDS: Fluticasone Propionate Nasal 50 MCG/SPRAY BOTTLE NS SCH (08:53)
[2020-03-15] MEDS ORDERED: lisinopriL 20 MG TABLET PO SCH (09:00)
[2020-03-15] MEDS ORDERED: Aspirin Enteric Coated 81 MG Tablet PO SCH (09:00)
[2020-03-15] MEDS: Cyclosporine [Restasis] 1 EACH OP SCH (09:07)
[2020-03-15] MEDS: lisinopriL 20 MG TABLET PO SCH (09:07)
[2020-03-16] MEDS: *HR* OxyCODONE Immed Rel 5 MG TABLET PO PRN (04:20)
[2020-03-16 05:42] LABS: Hematocrit 26.8 % (35.3-44.9); Hemoglobin 8.5 g/dL (11.5-15.4)
[2020-03-16 06:00] LABS: Calcium 8.6 mg/dL (8.6-10.3); Potassium 3.7 mEq/L (3.5-5.1)
[2020-03-16] MEDS: Levothyroxine 25 MCG TABLET PO SCH (06:24)
[2020-03-16] MEDS: tiZANidine 4 MG TABLET PO SCH (08:27)
[2020-03-16] MEDS: Aspirin Enteric Coated 81 MG Tablet PO SCH (08:27)
[2020-03-16] MEDS: Metoprolol XL (24 HR) Succ 50 MG TAB.ER.24H PO SCH (08:27)
[2020-03-16] MEDS: Cyanocobalamin (B-12) 1,000 MCG TABLET PO SCH (08:29)
[2020-03-16] MEDS: lisinopriL 20 MG TABLET PO SCH (08:29)
[2020-03-16] MEDS: amLODIPine 5 MG TABLET PO SCH (08:29)
[2020-03-16] MEDS: Insulin LISPRO 300 UNITS/3 ML VIAL SQ SCH ×2 (08:30→12:27)
[2020-03-16] MEDS: Fluticasone Propionate Nasal 50 MCG/SPRAY BOTTLE NS SCH (09:57)
[2020-03-16] MEDS: Cyclosporine [Restasis] 1 EACH OP SCH (09:57)
[2020-03-16] MEDS ORDERED: 0.9 % Sodium Chloride 500 ML IVC ONE (10:22)
[2020-03-16] MEDS ORDERED: Acetaminophen 325 MG TABLET PO PRN (10:41)
[2020-03-16] MEDS ORDERED: tiZANidine 4 MG TABLET PO PRN (10:42)
[2020-03-16] MEDS ORDERED: *HR* OxyCODONE/APAP 5/325 TABLET PO PRN (10:42)
[2020-03-16] MEDS ORDERED: *HR* OxyCODONE Immed Rel 5 MG TABLET PO PRN (11:32)
[2020-03-16 15:16] VITALS: BP 153/63
== END 2020-03-16 16:05 | disposition home health service (06) | DRG 483 ==
LOC: SAMDAY 08:59 → 3NENU 14:13
PROVIDERS: ADMIT Orthopaedic Surgery; ATTEND Orthopaedic Surgery

== ENCOUNTER 2021-08-01 06:10 | Inpatient (IN) ==
[2021-08-01] MEDS ORDERED: Heparin 1,000 UNITS/500 mL 500 ML ONE (06:31)
[2021-08-01] MEDS ORDERED: Protamine Sulfate 50 MG/5 ML VIAL IVP ONE (06:32)
[2021-08-01] MEDS ORDERED: CeFAZolin Syr 2,000MG/20 ML 2,000 MG/20 ML SYRINGE IVPB ONE (06:42)
[2021-08-01] MEDS ORDERED: Ringers Solution, Lactated 1,000 ML IVC SCH (06:45)
[2021-08-01] MEDS ORDERED: *HR* Remifentanil 2 MG VIAL IVP ONE (07:15)
[2021-08-01] MEDS ORDERED: *HR* Rocuronium Bromide 50 MG/5 ML VIAL ONE (07:17)
[2021-08-01] MEDS ORDERED: Lidocaine HCL 4 ML Topical Solution (Laryng-O-Jet Kit Sterile Pak) TP ONE (07:17)
[2021-08-01] MEDS ORDERED: *HR* FentaNYL (PF) 100 MCG/2 ML VIAL ONE ×2 (07:17→08:59)
[2021-08-01] MEDS ORDERED: Ondansetron 4 MG/2 ML VIAL ONE (07:17)
[2021-08-01] MEDS ORDERED: *HR* Propofol 200 MG/20 ML VIAL IVP ONE (07:17)
[2021-08-01] MEDS ORDERED: Lidocaine -MPF 2% 5 ML VIAL ONE (07:17)
[2021-08-01] MEDS ORDERED: *HR* Phenylephrine 10 MG/ML VIAL ONE (07:27)
[2021-08-01] MEDS ORDERED: EPHEDrine 50 MG/ML VIAL ONE (07:30)
[2021-08-01] MEDS ORDERED: Nitroglycerin 0 MG/0 ML INFUS..BTL IVC ONE (07:37)
[2021-08-01] MEDS ORDERED: *HR* Nitroprusside 50 MG VIAL IVC ONE (07:38)
[2021-08-01] MEDS ORDERED: ceFAZolin 1,000 MG, Sodium Chloride IRRigation 1,000 ML IR ONE (07:45)
[2021-08-01] MEDS ORDERED: *HR* Etomidate 40 MG/20 ML VIAL IVP ONE (08:03)
[2021-08-01] MEDS ORDERED: *HR* Heparin 5,000 UNIT/ML VIAL ONE (09:22)
[2021-08-01] MEDS ORDERED: Sugammadex Sodium 200 MG/2 ML VIAL IV ONE (10:40)
[2021-08-01] MEDS ORDERED: Ondansetron 4 MG/2 ML VIAL IVP PRN (12:01)
[2021-08-01] MEDS ORDERED: Naloxone 0.4 MG/ML INJ IVP PRN (12:01)
[2021-08-01] MEDS ORDERED: *HR* Labetalol 20 MG/4 ML SYRINGE IVP PRN (12:01)
[2021-08-01] MEDS ORDERED: *HR* FentaNYL PATCH 50 MCG PATCH TD SCH (12:01)
[2021-08-01] MEDS ORDERED: Nitroglycerin 0.4 MG TAB.SUBL SL PRN (12:01)
[2021-08-01] MEDS: *HR* OxyCODONE/APAP 5/325 TABLET PO PRN ×2 (12:16→23:22)
[2021-08-01] MEDS: CeFAZolin 2 GM/120 ML BAG IVPB SCH ×2 (15:28→23:22)
[2021-08-02 04:00] LABS: Basophils % 0.1 %; Eosinophils % 0.1 %; Hematocrit 24.5 % (35.3-44.9); Hemoglobin 7.9 g/dL (11.5-15.4); Immature Granulocytes % 0.4 % (0-4); Lymphocytes # 1.7 K/mcL (0.6-4.6); Lymphocytes % 22.8 %; Mean Corpuscular HGB Conc 32.2 g/dL (31.6-35.5); Mean Corpuscular Hemoglobin 33.8 pg (28.0-33.3); Mean Corpuscular Volume 104.7 fL (83.0-100.0); Mean Platelet Volume 11.4 fL (9.4-12.4); Monocytes # 0.5 K/mcL (0.0-1.3); Monocytes % 6.6 %; Neutrophils # 5.3 K/mcL (1.6-8.9); Platelet Count 148 K/mcL (140-400); Red Blood Count 2.34 M/mcL (3.82-4.97); Red Cell Distribution Width 12.7 % (11.5-14.5); White Blood Count 7.6 K/mcL (4.3-11.1)
[2021-08-02 04:08] LABS: BUN/Creatinine Ratio 20 (6-26); Blood Urea Nitrogen 18 mg/dL (8-23); Calcium 8.4 mg/dL (8.6-10.3); Carbon Dioxide 26 mEq/L (23-29); Chloride 107 mEq/L (98-107); Glucose 100 mg/dL (70-105); Osmolality,Calculated 288 (280-300); Potassium 4.1 mEq/L (3.5-5.1); Sodium 138 mEq/L (136-145); eGFR For African Americans > 60 (> 60); eGFR For Non-African Americans 58 (> 60)
[2021-08-02] MEDS ORDERED: Levothyroxine 25 MCG TABLET PO SCH (06:30)
[2021-08-02] MEDS: CeFAZolin 2 GM/120 ML BAG IVPB SCH (07:25)
[2021-08-02 07:33] VITALS: PULSE 60
[2021-08-02] MEDS ORDERED: amLODIPine 5 MG TABLET PO SCH (09:00)
[2021-08-02] MEDS ORDERED: lisinopriL 20 MG TABLET PO SCH (09:00)
[2021-08-02] MEDS ORDERED: Aspirin Enteric Coated 81 MG Tablet PO SCH (09:00)
[2021-08-02] MEDS ORDERED: Cyanocobalamin (B-12) 1,000 MCG TABLET PO SCH (09:00)
[2021-08-02] MEDS ORDERED: Metoprolol XL (24 HR) Succ 25 MG TAB.ER.24H PO SCH (09:00)
[2021-08-02] MEDS ORDERED: Isosorbide MONOnitrate (24 HR) 30 MG TAB.ER.24H PO SCH (09:00)
[2021-08-02] MEDS ORDERED: Cyclosporine [Restasis] 1 EACH Droperette OP SCH (09:00)
[2021-08-02 10:29] VITALS: BP 121/39; TEMP 98.3; O2SAT 91
[2021-08-02] MEDS: *HR* OxyCODONE/APAP 5/325 TABLET PO PRN (14:21)
== END 2021-08-02 14:56 | disposition home or self-care (01) | DRG 39 ==
LOC: SAMDAY 06:10 → 2NNU 06:10 → SAMDAY 08-02 14:56 → 2NNU 08-09 10:23
PROVIDERS: ADMIT Surgery Vascular Surgery; ATTEND Surgery Vascular Surgery

== ENCOUNTER 2021-09-04 11:45 | Observation (INO) ==
[~2021-09-04 11:45] MED LIST: CeFAZolin 2,000 MG/120 ML BAG IVPB SCH; Lidocaine HCL 4 ML Topical Solution (Laryng-O-Jet Kit Sterile Pak) TP ONE; Povidone-Iodine 45 ML, Sodium Chloride IRRigation 1,000 ML IR ONE
[2021-09-04] MEDS ORDERED: *HR* FentaNYL (PF) 100 MCG/2 ML VIAL IVP PRN (12:29)
[2021-09-04] MEDS ORDERED: Ketorolac 15 MG/ML VIAL IVP ONE (12:57)
[2021-09-04] MEDS ORDERED: CeFAZolin Syr 2,000MG/20 ML 2,000 MG/20 ML SYRINGE IVPB ONE (12:57)
[2021-09-04] MEDS ORDERED: Ringers Solution, Lactated 1,000 ML IVC SCH (13:00)
[2021-09-04] MEDS ORDERED: *HR* Propofol 200 MG/20 ML VIAL IVP ONE (13:24)
[2021-09-04] MEDS ORDERED: Lidocaine -MPF 2% 5 ML VIAL ONE ×2 (13:25→14:19)
[2021-09-04] MEDS ORDERED: *HR* Rocuronium Bromide 50 MG/5 ML VIAL ONE (13:25)
[2021-09-04] MEDS ORDERED: Ondansetron 4 MG/2 ML VIAL ONE (13:25)
[2021-09-04] MEDS ORDERED: Ropivacaine/PF 0.5% 30 ML VIAL ONE (14:18)
[2021-09-04] MEDS ORDERED: *HR* FentaNYL (PF) 100 MCG/2 ML VIAL ONE ×2 (14:18→17:55)
[2021-09-04] MEDS ORDERED: *HR* Phenylephrine 10 MG/ML VIAL ONE (15:04)
[2021-09-04] MEDS ORDERED: Vancomycin 1,000 MG VIAL ONE (15:13)
[2021-09-04] MEDS ORDERED: EPHEDrine 50 MG/ML VIAL ONE (15:53)
[2021-09-04] MEDS ORDERED: Tranexamic Acid 1,000 MG/10 ML VIAL ONE (16:12)
[2021-09-04] MEDS ORDERED: Acetaminophen IV 1,000 MG/100 ML BAG IVPB ONE (17:41)
[2021-09-04] MEDS ORDERED: *HR* Labetalol 20 MG/4 ML SYRINGE IVP ONE (17:43)
[2021-09-04] MEDS ORDERED: Naloxone 0.4 MG/ML INJ IVP PRN (18:04)
[2021-09-04] MEDS ORDERED: Nitroglycerin 0.4 MG TAB.SUBL SL PRN (18:24)
[2021-09-04] MEDS: *HR* FentaNYL PATCH 50 MCG PATCH TD SCH (20:18)
[2021-09-04] MEDS: Aspirin 81 MG TAB.CHEW PO SCH (20:23)
[2021-09-04] MEDS: Ringers Solution, Lactated 1,000 ML IVC SCH (23:12)
[2021-09-04] MEDS: Acetaminophen 325 MG TABLET PO SCH (23:12)
[2021-09-04] MEDS: Ibuprofen 400 MG TABLET PO SCH (23:12)
[2021-09-04] MEDS: CeFAZolin 2,000 MG/120 ML BAG IVPB SCH (23:20)
[2021-09-05 05:05] LABS: Basophils % 0.1 %; Hematocrit 25.2 % (35.3-44.9); Hemoglobin 7.9 g/dL (11.5-15.4); Immature Granulocytes % 0.1 % (0-4); Lymphocytes % 13.4 %; Mean Corpuscular HGB Conc 31.3 g/dL (31.6-35.5); Mean Corpuscular Hemoglobin 34.2 pg (28.0-33.3); Mean Corpuscular Volume 109.1 fL (83.0-100.0); Monocytes # 0.4 K/mcL (0.0-1.3); Monocytes % 6.2 %; Neutrophils # 5.7 K/mcL (1.6-8.9); Platelet Count 150 K/mcL (140-400); Red Blood Count 2.31 M/mcL (3.82-4.97); Red Cell Distribution Width 13.9 % (11.5-14.5); Segmented Neutrophils % 80.2 %; White Blood Count 7.1 K/mcL (4.3-11.1)
[2021-09-05] MEDS: Levothyroxine 25 MCG TABLET PO SCH (05:25)
[2021-09-05] MEDS: Ibuprofen 400 MG TABLET PO SCH ×3 (05:25→18:52)
[2021-09-05 05:26] LABS: BUN/Creatinine Ratio 17 (6-26); Blood Urea Nitrogen 16 mg/dL (8-23); Calcium 8.3 mg/dL (8.6-10.3); Carbon Dioxide 27 mEq/L (23-29); Chloride 106 mEq/L (98-107); Glucose 142 mg/dL (70-105); Osmolality,Calculated 290 (280-300); Potassium 4.7 mEq/L (3.5-5.1); Sodium 138 mEq/L (136-145); eGFR For African Americans > 60 (> 60); eGFR For Non-African Americans 58 (> 60)
[2021-09-05] MEDS: Acetaminophen 325 MG TABLET PO SCH ×3 (05:26→18:51)
[2021-09-05] MEDS: CeFAZolin 2,000 MG/120 ML BAG IVPB SCH ×2 (07:49→16:59)
[2021-09-05] MEDS: Aspirin 81 MG TAB.CHEW PO SCH ×2 (07:49→21:25)
[2021-09-05] MEDS: lisinopriL 20 MG TABLET PO SCH (07:49)
[2021-09-05] MEDS: Metoprolol XL (24 HR) Succ 25 MG TAB.ER.24H PO SCH (07:50)
[2021-09-05] MEDS: amLODIPine 5 MG TABLET PO SCH (07:50)
[2021-09-05] MEDS: Cyanocobalamin (B-12) 1,000 MCG TABLET PO SCH (07:50)
[2021-09-05] MEDS: *HR* OxyCODONE Immed Rel 5 MG TABLET PO PRN ×2 (07:50→16:59)
[2021-09-05] MEDS: Isosorbide MONOnitrate (24 HR) 30 MG TAB.ER.24H PO SCH (07:51)
[2021-09-06] MEDS: Ibuprofen 400 MG TABLET PO SCH ×5 (00:24→23:55)
[2021-09-06] MEDS: Acetaminophen 325 MG TABLET PO SCH ×5 (00:24→23:55)
[2021-09-06] MEDS: CeFAZolin 2,000 MG/120 ML BAG IVPB SCH ×4 (00:24→23:55)
[2021-09-06] MEDS: *HR* OxyCODONE Immed Rel 5 MG TABLET PO PRN ×2 (06:25→20:04)
[2021-09-06] MEDS: Levothyroxine 25 MCG TABLET PO SCH (07:05)
[2021-09-06] MEDS: Metoprolol XL (24 HR) Succ 25 MG TAB.ER.24H PO SCH (08:31)
[2021-09-06] MEDS: Cyanocobalamin (B-12) 1,000 MCG TABLET PO SCH (08:32)
[2021-09-06] MEDS: lisinopriL 20 MG TABLET PO SCH (08:32)
[2021-09-06] MEDS: Isosorbide MONOnitrate (24 HR) 30 MG TAB.ER.24H PO SCH (08:32)
[2021-09-06] MEDS: amLODIPine 5 MG TABLET PO SCH (08:32)
[2021-09-06] MEDS: Aspirin 81 MG TAB.CHEW PO SCH ×2 (08:32→19:55)
[2021-09-06] MEDS: Ringers Solution, Lactated 1,000 ML IVC SCH (12:03)
[2021-09-07] MEDS: Ibuprofen 400 MG TABLET PO SCH ×3 (05:55→17:15)
[2021-09-07] MEDS: Acetaminophen 325 MG TABLET PO SCH ×3 (05:55→17:14)
[2021-09-07] MEDS: Levothyroxine 25 MCG TABLET PO SCH (05:56)
[2021-09-07] MEDS: Isosorbide MONOnitrate (24 HR) 30 MG TAB.ER.24H PO SCH (08:22)
[2021-09-07] MEDS: amLODIPine 5 MG TABLET PO SCH (08:22)
[2021-09-07] MEDS: Aspirin 81 MG TAB.CHEW PO SCH ×2 (08:22→20:23)
[2021-09-07] MEDS: Cyanocobalamin (B-12) 1,000 MCG TABLET PO SCH (08:22)
[2021-09-07] MEDS: *HR* OxyCODONE Immed Rel 5 MG TABLET PO PRN (08:22)
[2021-09-07] MEDS: Metoprolol XL (24 HR) Succ 25 MG TAB.ER.24H PO SCH (08:22)
[2021-09-07] MEDS: lisinopriL 20 MG TABLET PO SCH (08:23)
[2021-09-07] MEDS: *HR* FentaNYL PATCH 50 MCG PATCH TD SCH (20:51)
[2021-09-08] MEDS: Ibuprofen 400 MG TABLET PO SCH ×3 (00:22→11:40)
[2021-09-08] MEDS: Acetaminophen 325 MG TABLET PO SCH ×3 (00:22→11:40)
[2021-09-08] MEDS: Levothyroxine 25 MCG TABLET PO SCH (05:59)
[2021-09-08 07:04] VITALS: BP 178/67; PULSE 71; TEMP 97.9; O2SAT 92
[2021-09-08] MEDS: lisinopriL 20 MG TABLET PO SCH (09:17)
[2021-09-08] MEDS: Cyanocobalamin (B-12) 1,000 MCG TABLET PO SCH (09:17)
[2021-09-08] MEDS: amLODIPine 5 MG TABLET PO SCH (09:17)
[2021-09-08] MEDS: Metoprolol XL (24 HR) Succ 25 MG TAB.ER.24H PO SCH (09:17)
[2021-09-08] MEDS: Aspirin 81 MG TAB.CHEW PO SCH (09:18)
[2021-09-08] MEDS: Isosorbide MONOnitrate (24 HR) 30 MG TAB.ER.24H PO SCH (09:18)
[2021-09-08 13:13] LABS: Influenza A PCR Negative (Negative); Influenza B PCR Negative (Negative); Resp. Syncytial Virus PCR Negative (Negative)
[2021-09-08 13:28] LABS: SARS-CoV-2 by PCR (In House) Negative (Negative)
[2021-09-08] MEDS: *HR* OxyCODONE Immed Rel 5 MG TABLET PO PRN (16:39)
== END 2021-09-08 16:48 ==
LOC: SDCAOSI 11:45 → 4WAOSI 12:00 → INTOOBSV 12:00 → 4WAOSI 19:18
PROVIDERS: ADMIT Orthopaedic Surgery; ATTEND Orthopaedic Surgery

== ENCOUNTER 2022-01-09 07:42 | Inpatient (IN) ==
[2022-01-09] MEDS ORDERED: Ondansetron 4 MG/2 ML VIAL IVP STA (08:13)
[2022-01-09] MEDS ORDERED: *HR* HYDROmorphone (PF) 1 MG/ML SYRINGE IVP STA (08:14)
[2022-01-09] MEDS ORDERED: Isovue-370 500 ML BOTTLE IVP ONE (08:16)
[2022-01-09 10:28] LABS: Basophils % 0.2 %; Eosinophils % 0.2 %; Hematocrit 34.5 % (35.3-44.9); Hemoglobin 10.6 g/dL (11.5-15.4); Immature Granulocytes % 0.6 % (0-4); Lymphocytes # 1.6 K/mcL (0.6-4.6); Lymphocytes % 11.3 %; Mean Corpuscular HGB Conc 30.7 g/dL (31.6-35.5); Mean Corpuscular Hemoglobin 33.4 pg (28.0-33.3); Mean Corpuscular Volume 108.8 fL (83.0-100.0); Mean Platelet Volume 10.7 fL (9.4-12.4); Monocytes # 0.1 K/mcL (0.0-1.3); Monocytes % 0.7 %; Platelet Count 177 K/mcL (140-400); Red Blood Count 3.17 M/mcL (3.82-4.97); White Blood Count 14.1 K/mcL (4.3-11.1)
[2022-01-09 10:29] LABS: Neutrophils # 12.3 K/mcL (1.6-8.9)
[2022-01-09 10:38] LABS: INR 0.9; Prothrombin Time 10.4 Seconds (9.4-12.1)
[2022-01-09 10:41] LABS: Activated Partial Thrombo Time 34.3 Seconds (26.0-36.0)
[2022-01-09 10:55] LABS: Alanine Aminotransferase 12 Units/L (7-52); Albumin 3.8 g/dL (3.5-5.7); Albumin/Globulin Ratio 1.7 (1.1-2.2); Alkaline Phosphatase 85 Units/L (34-104); Aspartate Amino Transferase 22 Units/L (13-39); BUN/Creatinine Ratio 26 (6-26); Bilirubin,Direct 0.2 mg/dL (0.0-0.2); Bilirubin,Indirect 0.5 mg/dL (0.0-1.0); Bilirubin,Total 0.7 mg/dL (0.3-1.0); Blood Urea Nitrogen 29 mg/dL (8-23); Carbon Dioxide 20 mEq/L (23-29); Chloride 105 mEq/L (98-107); Globulin 2.3 g/dL (2.4-3.5); Glucose 199 mg/dL (70-105); Lipase 203 Units/L (11-82); Osmolality,Calculated 299 (280-300); Potassium 3.1 mEq/L (3.5-5.1); Sodium 139 mEq/L (136-145); Total Protein 6.1 g/dL (6.4-8.9); Troponin I < 0.03 ng/mL (< 0.04); eGFR For African Americans 56 (> 60); eGFR For Non-African Americans 46 (> 60)
[2022-01-09] MEDS ORDERED: 0.9 % Sodium Chloride 500 ML IVC ONE (11:23)
[2022-01-09 15:37] LABS: Influenza A PCR Negative (Negative); Influenza B PCR Negative (Negative); Resp. Syncytial Virus PCR Negative (Negative)
[2022-01-09 15:38] LABS: SARS-CoV-2 by PCR (In House) Negative (Negative)
[2022-01-09] MEDS ORDERED: *HR* HYDROmorphone (PF) 1 MG/ML SYRINGE IVP ONE (16:33)
[2022-01-09] MEDS ORDERED: 0.9 % Sodium Chloride 1,000 ML IVC ONE ×3 (17:07→21:56)
[2022-01-09] MEDS ORDERED: Piperacillin/Tazobactam 3.375 GM in 0.9 % Sodium Chloride Mini Bag 100 ML IVPB ONE (17:07)
[2022-01-09] MEDS ORDERED: Melatonin 3 MG TABLET PO PRN (19:43)
[2022-01-09] MEDS ORDERED: Naloxone 0.4 MG/ML INJ IVP PRN (19:43)
[2022-01-09 20:57] VITALS: TEMP 98.1
[2022-01-09 21:26] LABS: ABG Base Excess -13 mEq/L (-2 to 3); ABG HCO3 14 mEq/L (21-27); ABG Oxygen Saturation 91 % (95-98); ABG PCO2 32 mmHg (35-45); ABG PH 7.23 pH Units (7.32-7.45); ABG PO2 71 mmHg (85-104); ABG TCO2 15 mEq/L (20-26)
[2022-01-09] MEDS: Ondansetron 4 MG/2 ML VIAL IVP PRN (21:26)
[2022-01-09] MEDS ORDERED: Pantoprazole 40 MG VIAL IVP ONE (21:56)
[2022-01-09] MEDS ORDERED: *HR* HYDROmorphone (PF) 1 MG/ML SYRINGE IVP PRN (21:57)
[2022-01-10 02:30] VITALS: BP 95/54; O2SAT 92
[2022-01-10] MEDS ORDERED: Piperacillin/Tazobactam 3.375 GM in 0.9 % Sodium Chloride Mini Bag 100 ML IVPB SCH ×2 (03:00→11:00)
[2022-01-10] MEDS ORDERED: 0.9 % Sodium Chloride 500 ML ONE (03:33)
[2022-01-10 04:48] LABS: Bilirubin,Urine Negative (Negative); Blood,Urine Negative (Negative); Clarity,Urine Clear (Clear); Color,Urine Yellow (Yellow); Glucose,Urine (UA) Normal (Normal); Ketones,Urine Negative (Negative); Leukocyte Esterase,Urine Negative (Negative); Nitrite,Urine Negative (Negative); Protein,Urine Trace mg/dL (Neg-Trace); Urobilinogen,Urine Normal (Normal)
[2022-01-10] MEDS: Ondansetron 4 MG/2 ML VIAL IVP PRN (05:27)
[2022-01-10 05:35] LABS: White Blood Count 2.2 K/mcL (4.3-11.1)
[2022-01-10 05:36] LABS: Eosinophils % 0.5 %; Hematocrit 28.2 % (35.3-44.9); Hemoglobin 8.5 g/dL (11.5-15.4); Immature Granulocytes % 1.4 % (0-4); Immature Platelets 7.3 % (1.1-6.1); Lymphocytes # 0.6 K/mcL (0.6-4.6); Lymphocytes % 27.6 %; Mean Corpuscular HGB Conc 30.1 g/dL (31.6-35.5); Mean Corpuscular Hemoglobin 33.3 pg (28.0-33.3); Mean Corpuscular Volume 110.6 fL (83.0-100.0); Monocytes # 0.1 K/mcL (0.0-1.3); Monocytes % 5.5 %; Neutrophils # 1.4 K/mcL (1.6-8.9); Nucleated Red Blood Cells 2.8 /100 WBC (0); Platelet Count 109 K/mcL (140-400); Red Blood Count 2.55 M/mcL (3.82-4.97); Red Cell Distribution Width 14.6 % (11.5-14.5)
[2022-01-10] MEDS ORDERED: Acetaminophen IV 500 MG/50 ML BAG IVPB ONE (05:41)
[2022-01-10] MEDS ORDERED: 0.9 % Sodium Chloride 1,000 ML IVC ONE (05:43)
[2022-01-10 05:58] LABS: Anisocytosis 1+ (Not Present); Platelet Estimate Slight Decrease (Normal); Reactive Lymphocytes Present (Not Present)
[2022-01-10 06:04] LABS: Albumin 2.5 g/dL (3.5-5.7); Albumin/Globulin Ratio 1.7 (1.1-2.2); Bilirubin,Total 0.5 mg/dL (0.3-1.0); Calcium 7.2 mg/dL (8.6-10.3); Globulin 1.5 g/dL (2.4-3.5); Phosphorous 5.2 mg/dL (2.7-4.5); Potassium 4.4 mEq/L (3.5-5.1)
[2022-01-10 06:11] VITALS: PULSE 79
[2022-01-10 11:14] LABS: Staphylococcus by PCR DETECTED (Not Detect)
[2022-01-10 11:15] LABS: A.calcoaceticus-baumannii cplx Not Detected (Not Detect); Bacteroides fragilis by PCR Not Detected (Not Detect); Candida albicans by PCR Not Detected (Not Detect); Candida auris by PCR Not Detected (Not Detect); Candida glabrata by PCR Not Detected (Not Detect); Candida krusei by PCR Not Detected (Not Detect); Candida parapsilosis by PCR Not Detected (Not Detect); Candida tropicalis by PCR Not Detected (Not Detect); Crypto. neoformans/gattii PCR Not Detected (Not Detect); Enterobacter cloacae Cmplx PCR Not Detected (Not Detect); Enterobacterales by PCR Not Detected (Not Detect); Enterococcus faecalis by PCR Not Detected (Not Detect); Enterococcus faecium by PCR Not Detected (Not Detect); Escherichia coli by PCR Not Detected (Not Detect); Klebs. pneumoniae group by PCR Not Detected (Not Detect); Klebsiella aerogenes by PCR Not Detected (Not Detect); Klebsiella oxytoca by PCR Not Detected (Not Detect); Proteus by PCR Not Detected (Not Detect); Pseudomonas aeruginosa by PCR Not Detected (Not Detect); Salmonella species by PCR Not Detected (Not Detect); Serratia marcescens by PCR Not Detected (Not Detect); Staph epidermidis by PCR Not Detected (Not Detect); Staph lugdunensis by PCR Not Detected (Not Detect); Staphylococcus aureus by PCR Not Detected (Not Detect); Stenotrophomonas maltophilia Not Detected (Not Detect); Streptococcus agalactiae(B)PCR Not Detected (Not Detect); Streptococcus by PCR Not Detected (Not Detect); Streptococcus pneumoniae PCR Not Detected (Not Detect); Streptococcus pyogenes (A) PCR Not Detected (Not Detect)
[2022-01-10] MEDS ORDERED: *HR* Heparin 5,000 UNIT/ML VIAL SQ SCH (18:00)
== END 2022-01-10 07:10 | disposition expired | DRG 871 ==
LOC: 2NNU 07:42 → EMEROOARM 07:42 → 2NNU 20:44
PROVIDERS: ADMIT Family Medicine; ATTEND Family Medicine